=== PATIENT | female | born 1950 | race Caucasian/White ===

== ENCOUNTER → 2019-10-28 13:48 | Outpatient (BNVA) | payer MEDICARE, SELFPAY | PROVIDERS: Family Provider Family Medicine; PCP Family Medicine; Visit Provider Anesthesiology | DX: M54.16 Radiculopathy, lumbar region (principal); M47.816 Spondylosis without myelopathy or radiculopathy, lumbar region; M50.30 Other cervical disc degeneration, unspecified cervical region; G25.81 Restless legs syndrome; Z79.891 Long term (current) use of opiate analgesic | CPT/HCPCS: 99214 ==

== ENCOUNTER 2019-11-26 14:03 | Outpatient (CLI) | payer MEDICARE, SELFPAY ==
--- NOTE | 2019-11-26 14:00 | XR_ITS ---
WS: [id number] XR KUB [id number] REASON FOR EXAM: Renal Calculi FINDINGS: Marked fecal stasis is seen in the abdomen. This obliterates the renal shadows since stones are not definitely seen. No definite stones in the ureters. The urinary bladder was essentially normal. There is degenerate changes on the left side L5-S1 articular facets. XR/XR KUB [id number] IMPRESSION: Marked fecal stasis no definite stones are identified.
== END 2019-11-26 14:04 | disposition home or self-care (01) ==
PROVIDERS: Family Provider Family Medicine; PCP Family Medicine; Visit Provider Urology
DX: N20.0 Calculus of kidney (principal)
CPT/HCPCS: 74018; 81001

== ENCOUNTER → 2019-12-18 13:54 | Outpatient (BNVA) | payer MEDICARE, MEDICAID, SELFPAY | PROVIDERS: Family Provider Family Medicine; PCP Family Medicine; Visit Provider Anesthesiology | DX: M47.816 Spondylosis without myelopathy or radiculopathy, lumbar region (principal); M54.16 Radiculopathy, lumbar region; M25.561 Pain in right knee; M25.562 Pain in left knee; M17.12 Unilateral primary osteoarthritis, left knee; M50.30 Other cervical disc degeneration, unspecified cervical region; Z79.891 Long term (current) use of opiate analgesic | CPT/HCPCS: 99214 ==

== ENCOUNTER 2020-01-12 21:20 | Inpatient (IN) | payer MEDICARE, SELFPAY ==
[2020-01-12 21:21] VITALS: BP 224/96; PULSE 108; RESP 26; TEMP 36.8; O2SAT 91; BMI 39.8
--- NOTE | 2020-01-12 21:28 | W.ED.SOB ---
HPI - SOB/Dyspnea General: Chief Complaint: Shortness of Breath/Dyspnea Stated Complaint: DIFF BREATHING Time Seen by Provider: 01/12/20 21:25 History of Present Illness: HPI Narrative: Eunice is a nice 69-year-old female who comes in complaining of increased shortness of breath. She denies any chest pain. She denies any fever. She has an occasional dry cough. Her greatest complaint is that of orthopnea and dyspnea on exertion. She states that she cannot do anything without having increased shortness of breath. She is increased swelling of her legs. She otherwise denies any abdominal pain, back pain, fever or other complaints. Patient states that she has COPD but she is unaware of being told that she has congestive heart failure or any heart problems. Associated symptoms: Reports orthopnea; Deny abdominal pain, chest congestion, chest pain, diaphoresis, dizziness, extremity pain, fever(s), hemoptysis, nausea, palpitations, polydipsia, syncope or vomiting Review of Systems General: Reports: other (negative unless marked) Const: Denies: fever, chills, body aches, fatigue, malaise or diaphoresis Eyes: Denies: change in vision or blurry vision ENMT: Denies: throat pain, painful swallowing, hoarseness, ear pain, ear discharge, Change in hearing or nasal discharge Card: Reports: swelling of feet/ankles, shortness of breath on exertion and shortness of breath when lying down; Denies: chest pain, palpitations, irregular heart rhythm, syncope or pre-syncope Resp: Reports: shortness of breath and non-productive cough; Denies: productive cough, wheezing, coughing up blood or chest congestion GI: Denies: abdominal pain, nausea, vomiting, vomiting blood, coffee grounds in vomit, diarrhea, constipation, cramping, blood in stool or black tarry stool : Denies: flank pain, painful urination, urinary frequency, urinary urgency, decreased urine ouput, urinary incontinence or blood in urine Musc: Denies: neck pain, back pain, extremity pain, extremity swelling, joint pain, joint swelling, joint warmth or joint stiffness Skin/Breast: Denies: rash, skin tenderness or yellow skin Neuro: Denies: headache, numbness in extremities, weakness in extremities, changes in sensation, lack of coordination, difficulty walking, dizziness, vertigo or confusion Endo: Denies: excessive thirst, tired all the time, cold intolerance, excessive sweating, flushing or hot flashes Octavio/Lymph: Denies: easy bruising, easy bleeding, petechiae or enlarged lymph nodes All/Imm: Denies: hives, throat swelling, tongue swelling, facial swelling or acute wheezing PFSH ED PFSH: Medical History (Updated 01/12/20 @ 22:45 by Marlena Nieves) Cervical spine pain Congestive heart failure Coronary artery disease DDD (degenerative disc disease), cervical DJD (degenerative joint disease), lumbar Encounter for long-term use of opiate analgesic Facet syndrome, lumbar History of kidney stones History of urinary retention Lumbar radiculitis Primary osteoarthritis of left knee Restless leg Surgical History H/O lithotripsy S/P carpal tunnel release BILATERAL S/P cervical spinal fusion 04/26/2017-2000 S/P knee replacement RIGHT S/P PTCA (percutaneous transluminal coronary angioplasty) S/P tonsillectomy Family History Son Diabetes Other Osteoporosis Social History Smoking and tobacco status: never smoked Alcohol intake: never Marital status: Current occupational status: retired History of recent travel: No Physical Exam Const: COMMON NORMALS: no apparent distress, oriented x3, no limitations, healthy appearing and well nourished EXAM LIMITATIONS: no altered mental status GENERAL APPEARANCE: cooperative, well kempt and well developed ORIENTATION/CONSCIOUSNESS: Yes awake HENMT: COMMON NORMALS: normocephalic, head/scalp atraumatic, hearing grossly normal bilaterally, external ears normal, EAC's normal, external nose normal and moist oral mucous membranes HEAD & SCALP: normal to inspection, normocephalic and atraumatic FACE & SINUS: normal facial exam and face symmetric NOSE: external nose normal and nares normal EXTERNAL EAR: Yes external ears normal EXTERNAL AUDITORY CANAL: EAC's normal MOUTH: oral and palatal mucosa normal and tongue normal Eye: COMMON NORMALS: PERRL, EOMs intact bilaterally, conjunctivae normal and no scleral icterus GENERAL EYE: normal appearance of both eyes and normal light reflex CONJUNCTIVA: Yes conjunctivae normal SCLERA: sclerae normal CORNEA: Yes corneas normal PUPIL: Yes PERRL DIRECT OPHTHALMOSCOPY: Yes normal light reflex Neck/C-Spine: COMMON NORMALS: full ROM, no lymphadenopathy, supple, no meningeal signs and no JVD GENERAL: Yes normal visual inspection and Yes trachea midline CERVICAL SPINE: Yes cervical ROM normal Chest: COMMONS NORMALS: inspection of chest normal and palpation of chest normal Resp: COMMON NORMALS: normal respiratory effort, no retractions and no use of accessory muscles EFFORT & INSPECTION: Yes able to speak in complete sentences AUSCULTATION: rales and wheezes Cardio: COMMON NORMALS: no JVD, regular rate, regular rhythm, S1 normal heart sound, S2 normal heart sound, no gallops, no clicks, no murmurs and no rub JUGULAR VENOUS DISTENTION: no JVD RATE: regular rate RHYTHM: regular rhythm HEART SOUNDS: S1 normal and S2 normal GI: COMMON NORMALS: soft to palpation, non-tender, no hepatosplenomegaly and no masses INSPECTION: Yes normal to inspection PALPATION: Yes soft and Yes no hepatosplenomegaly : COMMON NORMALS: Yes no CVA tenderness BLADDER/KIDNEY EXAM: Yes no CVA tenderness Back/Pelvis: COMMON NORMALS: no CVA tenderness, thoracic and lumbar spine normal to inspection, no thoracic nor lumbar tenderness and thoraco-lumbar ROM normal Extremity: COMMON NORMALS: normal to inspection, full ROM, normal capillary refill, no joint enlargement, no clubbing, cyanosis or edema and no calf tenderness Neuro: COMMON NORMALS: oriented x3, CN's II-XII intact bilaterally, moves all extremities, no focal motor deficits and no sensory deficits noted MENINGEAL SIGNS: Yes no meningeal signs Psych: COMMON NORMALS: mental status grossly normal, thought process normal, cooperative, affect normal, speech normal and activity/motor behavior normal APPEARANCE: Yes well kempt SPEECH: Yes normal speech THOUGHT PROCESS: normal thought process Skin: COMMON NORMALS: no rashes or lesions noted, skin turgor normal, no jaundice, no petechiae and no mottling GENERAL SKIN EXAM: no rashes or lesions noted and turgor normal Course Vital Signs: Vital signs: Vital Signs Temperature 98.3 F 01/12/20 21:21 Pulse Rate 93 01/12/20 22:32 Respiratory Rate 20 H 01/12/20 22:32 Blood Pressure 165/110 01/12/20 22:26 Pulse Oximetry 93 01/12/20 22:32 MDM - SOB/Dyspnea MDM Narrative: Medical decision making narrative: Arrival -patient presents with shortness of breath but has a history of COPD. Her history of increasing leg edema, orthopnea and dyspnea on exertion sound somewhat like heart failure as well. Differential is considerable including acute coronary syndrome, acute CHF, COPD exacerbation, bronchitis, pneumonia among many others. Patient is not unstable at this time so we will proceed with work-up for dyspnea primarily. Admit -Case reviewed with Dr. Matute. He will admit for congestive heart failure exacerbation. Patient is currently stable, no chest pain normal EKG normal troponin. Lab Data: Labs: Lab Results 01/12/20 01/12/20 01/12/20 Range/Units 21:50 21:55 21:55 WBC 8.8 (4.0-10.0) 10^3/ uL RBC 4.39 (4.1-5.3) 10^6/u L Hgb 12.6 (11.5-15.3) g/dL Hct 39.4 (37.0-47.0) % MCV 89.7 (81-99) fL MCH 28.7 (28.0-34.0) pg MCHC 32.0 (30.0-36.0) g/dL RDW 13.9 (12.1-15.1) % Plt Count 230 (130-400) 10^3/c mm MPV 9.4 (7.4-10.4) fL Neut % (Auto) 80.6 % Lymph % (Auto) 11.7 % [place] % (Auto) 5.2 % Eos % (Auto) 1.5 % Baso % (Auto) 0.3 % Neut # (Auto) 7.1 (1.8-7.7) 10^3/u L Lymph # (Auto) 1.0 (0.8-4.8) 10^3/u L [place] # (Auto) 0.5 (0.2-0.9) 10^3/u L Eos # (Auto) 0.1 (0.0-0.8) 10^3/u L Baso # (Auto) 0.0 (0.0-0.1) 10^3/u L Nucleated RBC % (a uto) 0 % Nucleated RBCs # 0.0 /100WBC Sodium 138 (136-145) mmol/L Potassium 4.3 (3.5-5.1) mmol/L Chloride 101 (98-107) mmol/L Carbon Dioxide 27 (22-29) mmol/L Anion Gap 14.3 (5-19) BUN 15 (8-23) mg/dL Creatinine 0.6 (0.5-0.9) mg/dL Glucose 162 H (65-115) mg/dL Calculated Osmolal ity 286 (285-295) mOsm/k g Calcium 9.6 (8.5-10.5) mg/dL Magnesium 1.7 (1.7-2.3) mg/dL Total Bilirubin 0.7 (0.15-1.2) mg/dL AST 25 (0-32) U/L ALT 26 (0-33) U/L Alkaline Phosphata se 135 H (35-105) IU/L Troponin T Baselin e (0-10) ng/mL NT-Pro-B Natriuret Pep 535 H (0-125) pg/mL Total Protein 7.2 (6.6-8.7) g/dL Albumin 4.0 (3.5-5.2) g/dL Globulin 3.2 (1.3-4.6) g/dL Influenza Type A A g Negative (Negative) Influenza Type B A g Negative (Negative) 01/12/20 Range/Units 21:55 WBC (4.0-10.0) 10^3/ uL RBC (4.1-5.3) 10^6/u L Hgb (11.5-15.3) g/dL Hct (37.0-47.0) % MCV (81-99) fL MCH (28.0-34.0) pg MCHC (30.0-36.0) g/dL RDW (12.1-15.1) % Plt Count (130-400) 10^3/c mm MPV (7.4-10.4) fL Neut % (Auto) % Lymph % (Auto) % [place] % (Auto) % Eos % (Auto) % Baso % (Auto) % Neut # (Auto) (1.8-7.7) 10^3/u L Lymph # (Auto) (0.8-4.8) 10^3/u L [place] # (Auto) (0.2-0.9) 10^3/u L Eos # (Auto) (0.0-0.8) 10^3/u L Baso # (Auto) (0.0-0.1) 10^3/u L Nucleated RBC % (a uto) % Nucleated RBCs # /100WBC Sodium (136-145) mmol/L Potassium (3.5-5.1) mmol/L Chloride (98-107) mmol/L Carbon Dioxide (22-29) mmol/L Anion Gap (5-19) BUN (8-23) mg/dL Creatinine (0.5-0.9) mg/dL Glucose (65-115) mg/dL Calculated Osmolal ity (285-295) mOsm/k g Calcium (8.5-10.5) mg/dL Magnesium (1.7-2.3) mg/dL Total Bilirubin (0.15-1.2) mg/dL AST (0-32) U/L ALT (0-33) U/L Alkaline Phosphata se (35-105) IU/L Troponin T Baselin e 8 (0-10) ng/mL NT-Pro-B Natriuret Pep (0-125) pg/mL Total Protein (6.6-8.7) g/dL Albumin (3.5-5.2) g/dL Globulin (1.3-4.6) g/dL Influenza Type A A g (Negative) Influenza Type B A g (Negative) Imaging Data^: CXR: My impression: Cardiomegaly with bilateral pleural effusions and pulmonary vascular congestion. EKG Data^: EKG 1: Attestation: I personally reviewed and interpreted this EKG as follows: EKG Interpretation Date: 01/12/20 EKG interpretation time: 21:46 Interpretation: Normal sinus rhythm at 95 beats a minute, no acute ST-T wave changes, normal intervals, no blocks. Discharge Plan Discharge Patient Disposition: Admitted As Inpatient Clinical Impression: Acute exacerbation of congestive heart failure Condition: Stable Prescriptions: No Action levothyroxine 125 mcg capsule 125 mcg PO QDAY RF: 0 atenolol 50 mg tablet 50 mg PO QDAY RF: 0 glipizide 5 mg tablet 2.5 mg PO QDAY RF: 0 B Complex Plus Vitamin C 19-15-69-5-300 mg capsule 1 cap PO QDAY RF: 0 ropinirole 0.5 mg tablet 0.5 mg PO QDAY RF: 0 metformin 850 mg tablet 850 mg PO BID RF: 0 valsartan 80 mg tablet 80 mg PO QDAY RF: 0 isosorbide mononitrate 30 mg tablet extended release 24 hr 30 mg PO QAM RF: 0 atorvastatin 10 mg tablet 10 mg PO QDAY RF: 0 amlodipine 5 mg tablet 5 mg PO QDAY RF: 0 Zyrtec 10 mg capsule PO DAILY RF: 0 Lactobacillus acidophilus [Acidophilus] Capsule 10 mg PO QDAY RF: 0 duloxetine [Cymbalta] 60 mg capsule,delayed release(DR/EC) 60 mg PO QDAY RF: 0 aspirin [Adult Aspirin Regimen] 81 mg tablet,delayed release (DR/EC) 81 mg PO QDAY RF: 0 lutein-zeaxanthin [Ocuvite Blue Light] 25-5 mg capsule PO DAILY RF: 0 coenzyme [id number] 100-100 mg-unit capsule PO DAILY RF: 0 albuterol sulfate [ProAir HFA] 90 mcg/actuation HFA aerosol inhaler 1 inh INHALATION DAILY PRNRF: 0 gabapentin 600 mg tablet 600 mg PO TID 30 Days Qty: 90 RF: 1 oxycodone 15 mg tablet 15 mg PO QID PRN (Reason: pain) 30 Days Qty: 120 RF: 0 oxycodone 15 mg tablet 15 mg PO QID PRN (Reason: pain) 30 Days Qty: 120 RF: 0 methocarbamol 500 mg tablet 500 mg PO TID 30 Days Qty: 90 RF: 1 nortriptyline 50 mg capsule 100 mg PO QDAY 30 Days Qty: 60 RF: 1 Referrals: Serjio Matute MD [Primary Care Provider] - Coding Level of Care Code ED Corporate Communications Specialist for Chg Fwd Exam Comprehensive
--- NOTE | 2020-01-12 21:29 | XR_ITS ---
WS: [id number] CHEST XRAY TECHNIQUE: Portable chest. CLINICAL INFORMATION: cough COMPARISON: March 27, 2019 FINDINGS: Heart: Cardiomegaly. Lungs: Small bilateral pleural effusions with bibasilar atelectasis. Shallow inspiration. Bones: Postoperative changes lower cervical spine. Chronic left lateral rib fractures. XR/XR chest 1V portable [id number] IMPRESSION: Cardiomegaly with small bilateral pleural effusions and bibasilar atelectasis. Recommend correlation for CHF versus pneumonia.
--- NOTE | 2020-01-12 21:29 | ECG_ITS ---
Measurements Intervals [place] Rate: 95 P: 48 AK: 153 QRS: -2 QRSD: 94 T: 42 QT: 357 QTc: 449 SINUS RHYTHM Compared to ECG 10/29/2018 10:54:04 Intraventricular conduction delay no longer present Electronically Signed On 01-13-2020 7:48:50 CDT by Kaushik Beach M.D. [id number]
[2020-01-12] MEDS: nitroglycerin 1 gm/inch oint Pkt 1 INCH TOPICAL (21:43)
[2020-01-12 22:01] LABS: Basophils % 0.3 %; Eosinophils # 0.1 10^3/uL (0.0-0.8); Eosinophils % 1.5 %; Hematocrit 39.4 % (37.0-47.0); Hemoglobin 12.6 g/dL (11.5-15.3); Lymphocytes % 11.7 %; Mean Corpuscular Hemoglobin 28.7 pg (28.0-34.0); Mean Corpuscular Volume 89.7 fL (81-99); Mean Platelet Volume 9.4 fL (7.4-10.4); Monocytes # 0.5 10^3/uL (0.2-0.9); Monocytes % 5.2 %; Neutrophils # 7.1 10^3/uL (1.8-7.7); Neutrophils % 80.6 %; Nucleated Red Blood Cells % 0 %; Platelet Count 230 10^3/cmm (130-400); Red Blood Count 4.39 10^6/uL (4.1-5.3); Red Cell Distribution Width 13.9 % (12.1-15.1); White Blood Count 8.8 10^3/uL (4.0-10.0)
[2020-01-12] MEDS: ipratropium-albuterol 3 mL Neb 9 ML INHALATION (22:15)
[2020-01-12 22:16] VITALS: PULSE 94; RESP 18; O2SAT 93
[2020-01-12] MEDS: FUROsemide 10 mg/mL SDV 4mL 40 MG IVP (22:21)
[2020-01-12 22:22] LABS: Troponin(5th) Baseline 8 ng/mL (0-10)
[2020-01-12] MEDS: nitroglycerin drip 50 MG/250 ML PREMIX IV (22:23)
[2020-01-12 22:26] VITALS: BP 165/110; PULSE 98; RESP 24; O2SAT 89
[2020-01-12 22:30] LABS: Influenza A by IFA Negative (Negative); Influenza B by IFA Negative (Negative)
[2020-01-12 22:31] LABS: Alanine Aminotransferase 26 U/L (0-33); Alkaline Phosphatase 135 IU/L (35-105); Anion Gap 14.3 (5-19); Aspartate Amino Transferase 25 U/L (0-32); Blood Urea Nitrogen 15 mg/dL (8-23); Calcium 9.6 mg/dL (8.5-10.5); Carbon Dioxide 27 mmol/L (22-29); Chloride 101 mmol/L (98-107); Globulin 3.2 g/dL (1.3-4.6); Glucose 162 mg/dL (65-115); Magnesium 1.7 mg/dL (1.7-2.3); NT Pro B Type Natriuretic Pept 535 pg/mL (0-125); Osmolality Calculated 286 mOsm/kg (285-295); Potassium 4.3 mmol/L (3.5-5.1); Sodium 138 mmol/L (136-145); Total Bilirubin 0.7 mg/dL (0.15-1.2); Total Protein 7.2 g/dL (6.6-8.7)
[2020-01-12 22:32] VITALS: PULSE 91; PULSE 93; RESP 20; RESP 23; O2SAT 92; O2SAT 93
[2020-01-12 23:23] LABS: Bilirubin Urine Neg (NEGATIVE); Blood Urine Neg (Negative); Glucose Urine UA Norm (Normal); Ketones Urine Negative (Negative); Leukocyte Esterase Urine Negative (Negative); Nitrate Urine Negative (Negative); Protein Urine Neg (Negative); Specific Gravity, Urine 1.015 (1.005-1.030); Urine Appearance Clear (CLEAR); Urine Color Yellow (Yellow); Urobilinogen Urine Norm (Negative); pH Urine 5 (5-7)
[2020-01-12 23:24] LABS: Add Urine Culture? No
--- NOTE | 2020-01-12 23:29 | ECG_ITS ---
Measurements Intervals [place] Rate: 95 P: 87 OR: 152 QRS: -13 QRSD: 93 T: 54 QT: 343 QTc: 433 SINUS RHYTHM POSSIBLE ANTERIOR MYOCARDIAL INFARCTION [30 ms Q WAVE IN V3/V4, OR R < 0.2 mV IN V4], PROBABLY OLD Compared to ECG 10/29/2018 10:54:04 Myocardial infarct finding now present Intraventricular conduction delay no longer present Electronically Signed On 01-13-2020 7:49:34 CDT by Kaushik Beach M.D. [id number]
[2020-01-12 23:55] LABS: Troponin 5 2HR 9.74 ng/mL (0-10); Troponin 5 2HR Delta 1.74 ABS# (0-10)
[2020-01-13] VITALS (46 sets, daily range): BP systolic 131–198; BP diastolic 66–142; PULSE 68–108; RESP 15–28; TEMP 36.6–36.8; O2SAT 85–95
[2020-01-13] MEDS: morphine 4 mg/mL SDV 1 mL IVP (01:59)
--- NOTE | 2020-01-13 02:18 | PC.NURSE ---
Medications from home counted with second nurse and placed in Pyxis. Note with meds and counts with prescription bottles.
[2020-01-13] MEDS: oxyCODONE 5 mg IR Tab/Cap 15 MG PO ×4 (02:29→19:50)
[2020-01-13] MEDS: ropinirole 0.25 mg Tablet 0.5 MG PO ×2 (02:30→19:50)
--- NOTE | 2020-01-13 03:00 | PC.NURSE ---
Pt has been very anxious since she arrive on the unit. She continued to become more anxious until I was able to get a telephone verbal order from Dr. Matute to give her requip and oxycodone. She has since calmed down a biot, but still states she is anxious. When I check on her, she is short with me. Her blood pressure is still high - 133/112, and her O2 is 89%. She is currently refusing bipap still.
--- NOTE | 2020-01-13 03:29 | ECG_ITS ---
Measurements Intervals [place] Rate: 82 P: 63 SD: 166 QRS: 7 QRSD: 97 T: 41 QT: 381 QTc: 448 SINUS RHYTHM Compared to ECG 10/29/2018 10:54:04 Intraventricular conduction delay no longer present Electronically Signed On 01-13-2020 7:50:03 CDT by Kaushik Beach M.D. [id number]
[2020-01-13 03:52] LABS: Blood Urea Nitrogen 14 mg/dL (8-23); Calcium 9.6 mg/dL (8.5-10.5); Carbon Dioxide 30 mmol/L (22-29); Chloride 97 mmol/L (98-107); Glucose 207 mg/dL (65-115); Osmolality Calculated 290 mOsm/kg (285-295); Sodium 139 mmol/L (136-145)
[2020-01-13 03:54] LABS: Troponin 5 6HR 11.25 ng/mL (0-10); Troponin 5 6HR Delta 3.25 ng/L (0-12)
[2020-01-13 04:03] LABS: Basophils % 0.4 %; Eosinophils % 0.2 %; Hematocrit 40.2 % (37.0-47.0); Hemoglobin 12.8 g/dL (11.5-15.3); Lymphocytes # 1.1 10^3/uL (0.8-4.8); Lymphocytes % 13.2 %; Mean Corpuscular HGB Conc 31.8 g/dL (30.0-36.0); Mean Corpuscular Hemoglobin 28.4 pg (28.0-34.0); Mean Corpuscular Volume 89.1 fL (81-99); Mean Platelet Volume 9.6 fL (7.4-10.4); Monocytes # 0.4 10^3/uL (0.2-0.9); Monocytes % 5.2 %; Neutrophils # 6.8 10^3/uL (1.8-7.7); Neutrophils % 80.5 %; Nucleated Red Blood Cells % 0 %; Platelet Count 275 10^3/cmm (130-400); Red Blood Count 4.51 10^6/uL (4.1-5.3); Red Cell Distribution Width 13.7 % (12.1-15.1); White Blood Count 8.4 10^3/uL (4.0-10.0)
--- NOTE | 2020-01-13 08:38 | USCV_ITS ---
Eunice Frank Age: 69 Gender: F : 1950 Exam Date: 01/13/2020 10:10 Ordering Phys: Serjio Matute MD Technologist: Maxi Chisholm [place] Location[place] [facility] [place]ication: fluid overload BP: 143 / 81 HR: 85 Rhythm: Sinus Technical Quality: Adequate MEASUREMENTS (Male / Female) Normal Values 2D ECHO LV Diastolic Diameter PLAX 4.1 cm 4.2 - 5.9 / 3.9 - 5.3 cm LV Systolic Diameter PLAX 2.0 cm IVS Diastolic Thickness 1.0 cm 0.6 - 1.0 / 0.6 - 0.9 cm IVS Systolic Thickness 1.4 cm LVPW Diastolic Thickness 0.8 cm 0.6 - 1.0 / 0.6 - 0.9 cm LVPW Systolic Thickness 1.1 cm LVOT Diameter 2.1 cm LV Ejection Fraction 2D Teich 82.7 % LV Ejection Fraction MOD 2C 62.1 % LV Ejection Fraction 2C AL 60.9 % LA Diameter 4.7 cm LA Width 4.0 cm LA Height 5.1 cm RA Width 3.5 cm RA Height 4.6 cm M-MODE Aortic Annulus Diameter 3.6 cm LA Ao Ratio MM 1.3 MV E Point Septal Separation 1.0 cm DOPPLER AV Peak Velocity 147.0 cm/s LVOT Peak Velocity 118.0 cm/s AV Area Cont Eq vti 2.6 cm squared AV Area Cont Eq pk 2.7 cm squared MV Area PHT 2.5 cm squared Mitral E to A Ratio 0.8 MV E' Velocity 8.0 cm/s Mitral E to MV E' Ratio 12.0 Mitral E to LV E' Lateral Ratio 10.6 Mitral E to LV E' Septal Ratio 14.2 TR Peak Velocity 186.0 cm/s TR Peak Gradient 13.8 mmHg TV Peak E Velocity 82.0 cm/s Right Atrial Pressure 3.0 mmHg Pulmonary Artery Systolic Pressu 16.8 mmHg PV Peak Velocity 111.0 cm/s FINDINGS Left Ventricle Normal left ventricular size and systolic function, EF 67 %. Grade I/IV diastolic dysfunction (abnormal relaxation filling pattern), normal to mildly elevated filling pressures. Right Ventricle Normal right ventricular size and systolic function. Right Atrium Normal right atrial size. Left Atrium Mildly increased left atrial size. Mitral Valve Trace to mild mitral valve regurgitation. Aortic Valve Thickened aortic valve. Tricuspid Valve Structurally normal tricuspid valve. Pulmonic Valve Structurally normal pulmonic valve. Pericardium No pericardial effusion. Aorta Normal aortic annulus size. CONCLUSIONS Normal left ventricular size and systolic function, EF 67 %. Grade I/IV diastolic dysfunction (abnormal relaxation filling pattern), normal to mildly elevated filling pressures. Mildly increased left atrial size. Trace to mild mitral valve regurgitation. Thickened aortic valve. There is no pericardial effusion. There are no intracardiac masses. Compared to the study from 10/29/2018, there may not be a significant change Dr Jasmine Arredondo MD FACC (Electronically Signed) Final Date: 13 January 2020 16:54 S
--- NOTE | 2020-01-13 08:43 | P.HP_ITS ---
Providers/Chief Complaint Admitting Physician: Serjio Matute MD Primary Care Provider: Serjio Matute MD Chief Complaint: DIFF BREATHING History of Present Illness Eunice Frank is a 69 year old female with past medical history of diabetes mellitus, diastolic heart failure on oxygen 2.5 L at nighttime, hypertension, dyslipidemia, coronary artery disease, hypothyroidism who had presented to the emergency department secondary to dyspnea. 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 She then progressively became more dyspneic and was having a hard time moving around her house without having to take a rest. For this reason she presented to the emergency department. The patient denies any fevers, productive cough, chest pains, abdominal pain, nausea, vomiting, diarrhea, constipation. Medications/Allergies Home Medications Medication Instructions Recorded Confirmed Last Taken Type levothyroxine 112 mcg PO 0600 01/13/20 01/13/20 01/12/20 06:00 History nortriptyline 50 mg PO QDAY 01/13/20 01/13/20 01/12/20 08:00 History Allergies Allergy/AdvReac Type Severity Reaction Status Date / Time budesonide [From Symbicort] Allergy ALGY-Rash Verified 01/12/20 21:27 codeine Allergy ADR-Itching Verified 01/12/20 21:27 formoterol [From Symbicort] Allergy ALGY-Rash Verified 01/12/20 21:27 meloxicam [From Mobic] Allergy ADR-Nausea Verified 01/12/20 21:27 Penicillins Allergy ALGY-Hives Verified 01/12/20 21:27 tetracycline Allergy ADR-Cramping Verified 01/12/20 21:27 of the Muscles PFSH Acute PFSH: Medical History Cervical spine pain Congestive heart failure Coronary artery disease DDD (degenerative disc disease), cervical DJD (degenerative joint disease), lumbar Encounter for long-term use of opiate analgesic Facet syndrome, lumbar History of kidney stones History of urinary retention Lumbar radiculitis Primary osteoarthritis of left knee Restless leg Surgical History H/O lithotripsy S/P carpal tunnel release BILATERAL S/P cervical spinal fusion 04/26/2017-2000 S/P knee replacement RIGHT S/P PTCA (percutaneous transluminal coronary angioplasty) S/P tonsillectomy Family History Son Diabetes Other Osteoporosis Social History Smoking and tobacco status: never smoked Alcohol intake: never Marital status: Current occupational status: retired History of recent travel: No Vitals/I&O/Wt Last Vital Signs Temp 98.3 F 01/12/20 21:21 Pulse 80 01/13/20 07:23 Resp 20 H 01/13/20 07:16 BP 184/87 01/13/20 06:00 Pulse Ox 94 01/13/20 07:23 01/12/20 01/13/20 01/13/20 22:59 06:59 14:59 Intake Total 234.55 / 234.55 63.35 / 63.35 Output Total 1600 / 1600 300 / 300 Balance -1365.45 / -1365.45 -236.65 / -236.65 Weight last 48 hrs Weight 225 lb Physical Exam Narrative: EXAM NARRATIVE: General: Alert and oriented x3 Eyes: Pupils equal round and reactive to light and accommodation Mouth: Mucous membranes moist, pharynx non-erythematous Cardiac: Regular rate and rhythm without murmurs Lungs: Decreased air entry in the bilateral lung bases with mild crackles in the mid-lungs and clear breath sounds in the upper lungs bilaterally. Abdomen: Soft, nontender, no hepatosplenomegaly appreciated. Extremities: +1 pitting edema in the bilateral lower extremities Data : 01/13/20 03:30 01/13/20 03:30 A&P Additional A&P Information 1. Fluid overload -this is likely secondary to diastolic CHF, however we will get a repeat echocardiogram to further evaluate. The patient got 40 mg of Lasix IV in the ER and her breathing is improved. She is currently on 4 L of oxygen via nasal cannula and her oxygen saturation is at 92%. She typically only wears oxygen at night, however she was recommended to wear it during the day. Baseline oxygen use should be around 2 L. We will continue to work to get the fluid off. Currently she does not show signs of COVID-19. Certainly if she were to become febrile or her overall status were to decline, this would need to be tested. 2. Hypertensive urgency -the patient's blood pressures were in the 200s systolic upon entry to the ER. They tried to bring these down with medications, however were not working with short-term meds, so the patient was placed on a nitro drip. We will restart her home medications and adjust upwards as needed. We will work to wean off the nitro drip as possible. 3. Diabetes mellitus -insulin sliding scale and glipizide for now. 4. Hypothyroidism -check thyroid levels tomorrow. 5. Coronary artery disease -patient does not show signs of an NSTEMI at this time. We will continue to watch for any signs of chest pains worsening. 6. Prophylaxis -the patient will be on Lovenox for DVT prophylaxis. Attestations Medical Necessity Statement*: The patient is currently in the ICU for care of her fluid overload and hypertensive urgency. She is currently on a nitro drip. I expect her care to surpass 2 midnights. Time Spent in Patient Care: Greater than 35 minutes ICU time was 40 minutes. Coding Level of Care Code Acute Tax Economist for Fortino Vega
[2020-01-13] MEDS: FUROsemide 10 mg/mL SDV 4mL 40 MG IVP ×2 (09:05→19:51)
[2020-01-13] MEDS: nortriptyline 25 mg Capsule 50 MG PO (09:06)
[2020-01-13] MEDS: duloxetine 60 mg Capsule PO (09:06)
[2020-01-13] MEDS: atenolol 50 mg Tablet PO ×2 (09:06→18:10)
[2020-01-13] MEDS: enoxaparin 40 mg/0.4 mL Syringe SUBCUT (09:06)
[2020-01-13] MEDS: losartan 50 mg Tablet 25 MG PO ×2 (09:06→18:10)
[2020-01-13] MEDS: gabapentin 300 mg Capsule 600 MG PO ×3 (09:06→19:51)
[2020-01-13] MEDS: amlodipine 5 mg Tablet PO (09:07)
[2020-01-13] MEDS: aspirin 81 mg EC Tablet PO (09:07)
[2020-01-13 14:26] LABS: Glucose Point of Care 158 mg/dL (70-110)
[2020-01-13 17:29] LABS: Glucose Point of Care 152 mg/dL (70-110)
[2020-01-14] VITALS (14 sets, daily range): BP systolic 101–178; BP diastolic 60–87; PULSE 57–74; RESP 12–23; TEMP 36.5–37.1; O2SAT 90–96
[2020-01-14] MEDS: oxyCODONE 5 mg IR Tab/Cap 15 MG PO ×4 (02:11→20:40)
[2020-01-14 04:30] LABS: Basophils % 0.4 %; Eosinophils # 0.3 10^3/uL (0.0-0.8); Eosinophils % 3.7 %; Hematocrit 38.2 % (37.0-47.0); Hemoglobin 12.3 g/dL (11.5-15.3); Lymphocytes # 1.5 10^3/uL (0.8-4.8); Lymphocytes % 19.9 %; Mean Corpuscular HGB Conc 32.2 g/dL (30.0-36.0); Mean Corpuscular Hemoglobin 29.2 pg (28.0-34.0); Mean Corpuscular Volume 90.7 fL (81-99); Mean Platelet Volume 9.5 fL (7.4-10.4); Monocytes # 0.7 10^3/uL (0.2-0.9); Monocytes % 8.6 %; Neutrophils % 67.1 %; Nucleated Red Blood Cells % 0 %; Platelet Count 254 10^3/cmm (130-400); Red Blood Count 4.21 10^6/uL (4.1-5.3); Red Cell Distribution Width 13.8 % (12.1-15.1); White Blood Count 7.5 10^3/uL (4.0-10.0)
[2020-01-14 04:56] LABS: Alanine Aminotransferase 18 U/L (0-33); Albumin Level 3.6 g/dL (3.5-5.2); Alkaline Phosphatase 108 IU/L (35-105); Anion Gap 14.8 (5-19); Aspartate Amino Transferase 20 U/L (0-32); Blood Urea Nitrogen 14 mg/dL (8-23); Calcium 9.1 mg/dL (8.5-10.5); Carbon Dioxide 32 mmol/L (22-29); Chloride 98 mmol/L (98-107); Glucose 136 mg/dL (65-115); Magnesium 1.7 mg/dL (1.7-2.3); NT Pro B Type Natriuretic Pept 369 pg/mL (0-125); Osmolality Calculated 290 mOsm/kg (285-295); Phosphorus 4.1 mg/dL (2.5-4.5); Potassium 3.8 mmol/L (3.5-5.1); Sodium 141 mmol/L (136-145); Thyroid Stimulating Hormone 2.54 uIU/mL (0.27-4.20); Total Bilirubin 0.6 mg/dL (0.15-1.2); Total Protein 6.6 g/dL (6.6-8.7)
[2020-01-14] MEDS: isosorbide mononitrate ER 30 mg Tablet PO (05:13)
[2020-01-14] MEDS: levothyroxine 112 mcg Tablet PO (05:13)
[2020-01-14 05:17] LABS: Estmated Average Glucose 126
--- NOTE | 2020-01-14 05:25 | CTR_ITS ---
PROCEDURE INFORMATION: Exam: CT Head Without Contrast Exam date and time: 01/14/2020 5:25 AM Age: 69 years old Clinical indication: Altered mental status/memory loss and speech disturbance; Confusion or disorientation; Slurred speech TECHNIQUE: Imaging protocol: Computed tomography of the head without contrast. Total DLP: 916.1 mGy-cm Radiation optimization: All CT scans at this facility use at least one of these dose optimization techniques: automated exposure control; mA and/or kV adjustment per patient size (includes targeted exams where dose is matched to clinical indication); or iterative reconstruction. COMPARISON: CT head wo con* [id number] 05/10/2018 8:11 AM FINDINGS: Brain: Stable 5 mm calcified left frontal extra-axial meningioma. [place]-white matter differentiation is preserved. No edema, mass effect or midline shift.Periventricular and deep white matter hypodensities compatible with chronic microvascular ischemic changes. No acute intracranial hemorrhage. Ventricles: No ventriculomegaly. Bones/joints: No acute fracture. Sinuses: No acute sinusitis. Mastoid air cells: No mastoid effusion. Soft tissues: Unremarkable. CT/CT head wo con* [id number] IMPRESSION: No acute intracranial abnormality. Radiation Dose CTDIVOL = (mGy): DLP = 916.1 (mGy-cm)
[2020-01-14 05:31] LABS: Free T4 Free Thyroxine 1.33 ng/dL (0.82-1.77)
--- NOTE | 2020-01-14 05:53 | PC.NURSE ---
DR NOTIFICATION DR TOUSSAINT CALLED. PT WOKE UP AND COULD NOT TALK APPROPIATELY AND SPEECH WAS SLURRED. NEURO CHECK WAS DONE, EVERYTHING WAS WNL, EXCEPT SPEECH. DR TOUSSAINT GAVE ORDER FOR CT SCAN.
--- NOTE | 2020-01-14 07:00 | XR_ITS ---
WS: [id number] CHEST XRAY TECHNIQUE: Portable chest. CLINICAL INFORMATION: Dyspnea COMPARISON: January 12, 2020 FINDINGS: Shallow inspiration. Heart: Cardiomegaly. Lungs: Small left pleural effusion is unchanged. Left basilar atelectasis. Trace right pleural fluid is improved. No focal pneumonia. Bones: Normal visualized bony structures. XR/XR chest 1V portable [id number] IMPRESSION: 1. Shallow inspiration with stable small pleural effusion left basilar atelect asis. 2. Trace right pleural fluid is improved. 3. Shallow inspiration with cardiomegaly.
[2020-01-14 07:46] LABS: Glucose Point of Care 113 mg/dL (70-110)
[2020-01-14] MEDS: losartan 50 mg Tablet 25 MG PO ×2 (08:04→17:35)
[2020-01-14] MEDS: nortriptyline 25 mg Capsule 50 MG PO (08:04)
[2020-01-14] MEDS: aspirin 81 mg EC Tablet PO (08:06)
[2020-01-14] MEDS: enoxaparin 40 mg/0.4 mL Syringe SUBCUT (08:07)
[2020-01-14] MEDS: duloxetine 60 mg Capsule PO (08:07)
[2020-01-14] MEDS: atenolol 50 mg Tablet PO (08:07)
[2020-01-14] MEDS: amlodipine 5 mg Tablet PO (08:07)
[2020-01-14] MEDS: gabapentin 300 mg Capsule 600 MG PO ×3 (08:07→20:51)
[2020-01-14] MEDS: FUROsemide 10 mg/mL SDV 4mL 40 MG IVP ×2 (08:08→20:51)
--- NOTE | 2020-01-14 08:45 | USCV_ITS ---
Eunice Frank Age: 69 Gender: F : 1950 Exam Date: 01/14/2020 09:42 Ordering Phys: Serjio Matute MD Technologist: Lina Rice Exam Location[place] [facility] [place] Ind[place]: TIA Risk Factors: Previous Vascular Surgery: Right Brachial BP: / Left Brachial BP: / Right Left Velocity (cm/s) Spectral Plaque Velocity (cm/s) Spectral Plaque Syst/Diast Broadening Syst/Diast Broadening 97.00/ 19.80 Prox CCA 95.00 / 15.00 95.80/ 15.20 Mid CCA 116.10/ 12.10 87.80/ 14.30 Distal CCA 96.50 / 22.60 77.90/ 10.60 Prox ICA 61.80 / 14.30 78.80/ 21.10 Mid ICA 76.20 / 13.60 80.70/ 19.20 Distal ICA 65.10 / 16.70 65.40 ECA 67.10 0.84 ICA/CCA 0.66 Antegrade Vertebral Antegrade 46.90/ 10.40 cm/s 47.50/ 14.20 cm/s Tri Subclavian Tri 109.7 84.20 0 CONCLUSIONS Right ICA stenosis <50%. Mild atheromatous plaque right carotid bulb/ICA. Left ICA stenosis <50%. Mild atheromatous plaque left carotid bulb/ICA. Normal antegrade Doppler flow noted in the right vertebral artery. Normal antegrade Doppler flow noted in the left vertebral artery. Brayan Harris MD (Electronically Signed) Final Date: 15 January 2020 16:10 S
--- NOTE | 2020-01-14 08:50 | P.PN_ITS ---
Subjective Subjective: Interval history: Overnight the patient had an episode of difficulty with finding words and kept repeating [place] [employer] over and over. The patient did not have any other neurological deficits, however out of concern for a possible stroke, a CT scan was done. The patient does not remember the whole episode, and is currently feeling well. She currently has no deficits. The patient says that sometimes in the middle of the night if she has not slept well, she will be confused and when this happens, she frequently repeats the rosary. She feels that this is maybe what was going on. The patient currently has less shortness of breath than when she presented. She denies any active chest pains. Vitals/I&O/Wt Last Vital Signs Temp 97.9 F 01/14/20 02:21 Pulse 59 L 01/14/20 04:08 Resp 22 H 01/14/20 08:05 BP 101/64 01/14/20 08:04 Pulse Ox 95 01/14/20 08:05 01/13/20 01/14/20 01/14/20 22:59 06:59 14:59 Intake Total 480 / 822.125 120 / 942.125 Output Total 1200 / 2000 1500 / 3500 Balance -720 / -1177.875 -1380 / -2557.875 Weight last 48 hrs Weight 225 lb Physical Exam Narrative: EXAM NARRATIVE: General: Alert and oriented x3 Eyes: Pupils equal round and reactive to light and accommodation Mouth: Mucous membranes moist, pharynx non-erythematous Cardiac: Regular rate and rhythm without murmurs Lungs: Decreased air entry in the bilateral lung bases with mild crackles in the mid-lungs and clear breath sounds in the upper lungs bilaterally. Abdomen: Soft, nontender, no hepatosplenomegaly appreciated. Extremities: +1 pitting edema in the bilateral lower extremities. Mildly decreased from yesterday. Neurological: The patient has stable difficulty with finding words in terms of pauses with speaking, however is at her baseline. She has good strength in her upper and lower extremities. Cranial nerves II through XII are intact. Data : 01/14/20 04:15 01/14/20 04:15 A&P Additional A&P Information 1. Fluid overload secondary to diastolic CHF -the patient has been getting Lasix twice a day and is improving. She is currently on 4 L of oxygen via nasal cannula and her oxygen saturation is at 97%. She typically only wears oxygen at night, however she was recommended to wear it during the day. Baseline oxygen use should be around 2 L. We will continue to work to get the fluid off. Currently she does not show signs of COVID-19. Certainly if she were to become febrile or her overall status were to decline, this would need to be tested. 2. Hypertensive urgency -the patient's blood pressures were in the 200s systolic upon entry to the ER. They have been coming down well with Lasix therapy. Her atenolol was increased to 50 mg twice daily, however we will decrease back to daily as her blood pressures are now responding well to the Lasix treatment. Patient is currently off of the nitro drip. 3. Diabetes mellitus -insulin sliding scale and glipizide for now. 4. Hypothyroidism -stable 5. Coronary artery disease -patient does not show signs of an NSTEMI at this time. We will continue to watch for any signs of chest pains worsening. 6. Speech difficulties -the patient had some speech difficulties overnight and a CT head was negative for acute findings of stroke. Patient currently has no symptoms. This was either a TIA versus ICU delirium. We will go ahead and get a ultrasound of her bilateral carotids to make sure that they are not showing signs of blockage. Currently the patient is doing well. Continue with aspirin. 7. Prophylaxis -the patient will be on Lovenox for DVT prophylaxis. Attestations Medical Necessity Statement*: The patient continues to improve, however needs inpatient therapy. We will move her from the ICU today to the medical floor. Her stay will continue to cross 2 midnights. Time Spent in Patient Care: 16 - 35 minutes Coding Level of Care Code Acute Radial Drill Operator for Fortino Vega
[2020-01-14 11:20] LABS: Glucose Point of Care 144 mg/dL (70-110)
--- NOTE | 2020-01-14 12:10 | PC.NURSE ---
Pt transferred to room 251-2 via wc with all personal belongings. Pt settled into room by this nurse with O2 @ 4LNC. Chart given to assistant community manager. Report called to Jocelynn at 1137, pt transferred at 1149. No complaints voiced at time of transfer.
[2020-01-14 17:11] LABS: Glucose Point of Care 106 mg/dL (70-110)
[2020-01-14] MEDS: ropinirole 0.25 mg Tablet 0.5 MG PO (20:51)
[2020-01-14 21:02] LABS: Glucose Point of Care 129 mg/dL (70-110)
[2020-01-15] VITALS (13 sets, daily range): BP systolic 123–175; BP diastolic 66–88; PULSE 56–84; RESP 16–22; TEMP 36.2–36.9; O2SAT 91–96
[2020-01-15 05:02] LABS: Basophils % 0.4 %; Eosinophils # 0.4 10^3/uL (0.0-0.8); Eosinophils % 4.6 %; Hematocrit 39.4 % (37.0-47.0); Hemoglobin 12.8 g/dL (11.5-15.3); Lymphocytes # 1.4 10^3/uL (0.8-4.8); Lymphocytes % 18.1 %; Mean Corpuscular HGB Conc 32.5 g/dL (30.0-36.0); Mean Corpuscular Hemoglobin 29.2 pg (28.0-34.0); Mean Platelet Volume 9.7 fL (7.4-10.4); Monocytes # 0.7 10^3/uL (0.2-0.9); Monocytes % 9.1 %; Neutrophils # 5.3 10^3/uL (1.8-7.7); Neutrophils % 67.5 %; Nucleated Red Blood Cells % 0 %; Platelet Count 270 10^3/cmm (130-400); Red Blood Count 4.38 10^6/uL (4.1-5.3); Red Cell Distribution Width 13.6 % (12.1-15.1); White Blood Count 7.8 10^3/uL (4.0-10.0)
[2020-01-15 05:36] LABS: Alanine Aminotransferase 17 U/L (0-33); Albumin Level 3.7 g/dL (3.5-5.2); Alkaline Phosphatase 106 IU/L (35-105); Anion Gap 14.6 (5-19); Aspartate Amino Transferase 20 U/L (0-32); Blood Urea Nitrogen 18 mg/dL (8-23); Calcium 9.3 mg/dL (8.5-10.5); Carbon Dioxide 33 mmol/L (22-29); Chloride 97 mmol/L (98-107); Glucose 146 mg/dL (65-115); NT Pro B Type Natriuretic Pept 156 pg/mL (0-125); Osmolality Calculated 291 mOsm/kg (285-295); Potassium 3.6 mmol/L (3.5-5.1); Sodium 141 mmol/L (136-145); Total Bilirubin 0.5 mg/dL (0.15-1.2); Total Protein 6.7 g/dL (6.6-8.7)
[2020-01-15] MEDS: levothyroxine 112 mcg Tablet PO (05:47)
[2020-01-15] MEDS: isosorbide mononitrate ER 30 mg Tablet PO (05:47)
[2020-01-15 06:44] LABS: Glucose Point of Care 123 mg/dL (70-110)
--- NOTE | 2020-01-15 07:00 | XR_ITS ---
WS: [id number] CHEST XRAY TECHNIQUE: Portable chest. CLINICAL INFORMATION: Fluid overload COMPARISON: January 14, 2020 FINDINGS: Heart: Cardiomegaly. Lungs: Chronic emphysematous changes. Small bilateral pleural effusions. No focal pneumonia. Bones: Postoperative changes lower cervical spine. XR/XR chest 1V portable [id number] IMPRESSION: 1. Cardiomegaly with small bilateral pleural effusions unchanged. 2. Chronic emphysematous changes. 3. No focal pneumonia.
--- NOTE | 2020-01-15 09:17 | CT_ITS ---
WS: [id number] CT ABDOMEN PELVIS TECHNIQUE: Contrast-enhanced CT of the abdomen and pelvis with coronal and sagittal reformatted image s. CLINICAL INFORMATION: Right lower quadrant abdominal pain COMPARISON: CT April 04, 2017 DLP: 1785.[address] scans at [facility] use at least one of these dose optimization techniques: automat ed exposure control; mA and/or kV adjustment per patient size (includes targeted exams where dose is matched to clinical indication); or iterative reconstruction. FINDINGS: Enlarged right hepatic lobe. Normal portal vein and splenic vein. Fluid distended gallbladder which i s otherwise normal in appearance. Normal spleen. Small esophageal hiatal hernia. Small pericardial ef fusion. Small bilateral pleural effusions with bibasilar atelectasis. Compressive atelectasis in the lung bases with air bronchograms. Recommend correlation for pneumonia. Normal caliber abdominal aorta. Adrenal glands are normal. Normal renal parenchymal enhancement. No h ydronephrosis. Renal cortical atrophy. 1.8 cm left adnexal cyst is unchanged. Diverticulosis. No evid ence of acute diverticulitis. Scattered stool in the colon. No evidence of small or large bowel obstr uction. No periaortic or inguinal lymphadenopathy. Tiny fat-containing umbilical hernia. CT/CT abdomen pelvis w con* [id number] IMPRESSION: 1. Small bilateral pleural effusions with compressive atelectasis in the lung bases with air bronchograms. Recommend correlation for pneumonia. 2. Small pericardial effusion. 3. Small Esophageal hiatal hernia. 4. 1.8 cm left ovarian cyst is unchanged. 5. Diverticulosis. No evidence of acute diverticulitis. 6. Fluid distended gallbladder which is otherwise normal in appearance.
[2020-01-15] MEDS: oxyCODONE 5 mg IR Tab/Cap 15 MG PO ×3 (09:20→20:47)
--- NOTE | 2020-01-15 09:20 | PM.PN ---
Subjective Subjective: Interval history: The patient has been having pain in the right lower quadrant. The pain had been more mild before, however it is increasing gradually. It is radiating into her lower back. The pain is crampy in nature. Overall her breathing is improving and she was able to decrease to 3 and half liters of oxygen via nasal cannula. She denies any chest pains. Vitals/I&O/Wt Last Vital Signs Temp 97.5 F L 01/15/20 07:16 Pulse 72 01/15/20 07:16 Resp 16 01/15/20 07:16 BP 175/77 01/15/20 07:16 Pulse Ox 94 01/15/20 07:16 01/14/20 01/15/20 01/15/20 22:59 06:59 14:59 Intake Total 240 / 480 240 / 240 Output Total 500 / 750 450 / 1200 Balance -260 / -270 -450 / -720 240 / 240 Physical Exam Narrative: EXAM NARRATIVE: General: Alert and oriented x3 Mouth: Mucous membranes moist, pharynx non-erythematous Cardiac: Regular rate and rhythm without murmurs Lungs: Decreased air entry in the bilateral lung bases with mild crackles in the mid-lungs and clear breath sounds in the upper lungs bilaterally. Abdomen: Soft, tenderness present over the right lower quadrant to palpation moving into the right lower back. No hepatosplenomegaly appreciated. Extremities: +1 pitting edema in the bilateral lower extremities. Mildly decreased from yesterday. Neurological: Cranial nerves II through XII are intact. No significant deficits noted. Data : 01/15/20 04:08 01/15/20 04:08 A&P Additional A&P Information 1. Fluid overload secondary to diastolic CHF -the patient has been getting Lasix twice a day and is improving. She is currently on 3.5 L of oxygen via nasal cannula and her oxygen saturation is at 97%. She typically only wears oxygen at night, however she was recommended to wear it during the day. Baseline oxygen use should be around 2 L. We will continue to work to get the fluid off. Currently she does not show signs of COVID-19. Certainly if she were to become febrile or her overall status were to decline, this would need to be tested. The patient continues to improve and we will plan for discharge home tomorrow if she continues to get better. Currently she has a negative fluid balance of over 4.5 L. 2. Hypertensive urgency -the patient's blood pressures are improving and her atenolol has been decreased because her blood pressures were getting too low. Now her blood pressures are in the 170s. We will adjust further and see how she responds to this. 3. Diabetes mellitus -insulin sliding scale and glipizide for now. 4. Hypothyroidism -stable 5. Coronary artery disease -patient does not show signs of an NSTEMI at this time. We will continue to watch for any signs of chest pains worsening. 6. Speech difficulties -the patient no longer has speech difficulties other than her baseline occasional forgetfulness of words. 7. Abdominal pain -the patient has right lower quadrant abdominal pain. We will get a CT of her abdomen to rule out underlying pathology. 8. Prophylaxis -the patient will be on Lovenox for DVT prophylaxis. Attestations Medical Necessity Statement*: The patient continues to improve and will likely be able to be discharged home over the next 1 to 2 days depending on her course. Coding Level of Care Code Acute Cnc Service Technician for Fortino Vega
[2020-01-15] MEDS: nortriptyline 25 mg Capsule 50 MG PO (09:21)
[2020-01-15] MEDS: losartan 50 mg Tablet 25 MG PO ×2 (09:22→17:07)
[2020-01-15] MEDS: aspirin 81 mg EC Tablet PO (09:22)
[2020-01-15] MEDS: duloxetine 60 mg Capsule PO (09:22)
[2020-01-15] MEDS: gabapentin 300 mg Capsule 600 MG PO ×3 (09:23→20:48)
[2020-01-15] MEDS: atenolol 50 mg Tablet 75 MG PO (09:23)
[2020-01-15] MEDS: amlodipine 5 mg Tablet PO (09:24)
[2020-01-15] MEDS: enoxaparin 40 mg/0.4 mL Syringe SUBCUT (09:25)
[2020-01-15] MEDS: FUROsemide 10 mg/mL SDV 4mL 40 MG IVP ×2 (09:26→20:45)
--- NOTE | 2020-01-15 10:11 | PC.SOCIAL ---
Pg 2 IMM Explained to pt Pg 2 IMM via phone. Pt verbally understands, no questions voiced. Signed, dated, & timed then placed a copy in chart.
[2020-01-15 11:12] LABS: Glucose Point of Care 345 mg/dL (70-110)
[2020-01-15] MEDS: iohexol 300 mg/mL 100 mL Btl IV (11:20)
[2020-01-15 16:54] LABS: Glucose Point of Care 95 mg/dL (70-110)
[2020-01-15] MEDS: ropinirole 0.25 mg Tablet 0.5 MG PO (20:48)
[2020-01-15 20:53] LABS: Glucose Point of Care 171 mg/dL (70-110)
--- NOTE | 2020-01-15 23:25 | PC.NURSE ---
Ambulated to nurses station and back to room without oxygen. Cup of ice given per her request. Will monitor.
[2020-01-16] VITALS (8 sets, daily range): BP systolic 96–153; BP diastolic 53–76; PULSE 54–73; RESP 16–18; TEMP 36.4–36.6; O2SAT 87–94
[2020-01-16] MEDS: oxyCODONE 5 mg IR Tab/Cap 15 MG PO ×3 (01:58→14:29)
[2020-01-16 05:06] LABS: Basophils # 0.1 10^3/uL (0.0-0.1); Basophils % 0.6 %; Eosinophils # 0.3 10^3/uL (0.0-0.8); Eosinophils % 4.1 %; Hematocrit 41.6 % (37.0-47.0); Hemoglobin 12.9 g/dL (11.5-15.3); Lymphocytes # 1.8 10^3/uL (0.8-4.8); Lymphocytes % 22.7 %; Mean Corpuscular Volume 90.4 fL (81-99); Monocytes # 0.7 10^3/uL (0.2-0.9); Monocytes % 8.2 %; Neutrophils # 5.1 10^3/uL (1.8-7.7); Neutrophils % 64.2 %; Nucleated Red Blood Cells % 0 %; Platelet Count 327 10^3/cmm (130-400); Red Cell Distribution Width 13.7 % (12.1-15.1)
--- NOTE | 2020-01-16 05:19 | PC.NURSE ---
Dr. Garcia notified of patient's BP of 96/61 and HR of 59. Patient is scheduled to have Imdur 30mg PO at 0600. Order received to hold Imdur this am.
[2020-01-16 05:27] LABS: Alanine Aminotransferase 18 U/L (0-33); Albumin Level 4.1 g/dL (3.5-5.2); Alkaline Phosphatase 110 IU/L (35-105); Anion Gap 14.7 (5-19); Aspartate Amino Transferase 21 U/L (0-32); Blood Urea Nitrogen 27 mg/dL (8-23); Calcium 9.6 mg/dL (8.5-10.5); Carbon Dioxide 33 mmol/L (22-29); Chloride 93 mmol/L (98-107); Globulin 3.2 g/dL (1.3-4.6); Glucose 134 mg/dL (65-115); Magnesium 2.4 mg/dL (1.7-2.3); Osmolality Calculated 283 mOsm/kg (285-295); Phosphorus 5.9 mg/dL (2.5-4.5); Potassium 3.7 mmol/L (3.5-5.1); Sodium 137 mmol/L (136-145); Total Bilirubin 0.6 mg/dL (0.15-1.2); Total Protein 7.3 g/dL (6.6-8.7)
[2020-01-16] MEDS: levothyroxine 112 mcg Tablet PO (05:38)
[2020-01-16 06:04] LABS: Glucose Point of Care 128 mg/dL (70-110)
[2020-01-16] MEDS: losartan 50 mg Tablet 25 MG PO (08:05)
[2020-01-16] MEDS: nortriptyline 25 mg Capsule 50 MG PO (08:06)
[2020-01-16] MEDS: amlodipine 5 mg Tablet PO (08:06)
[2020-01-16] MEDS: gabapentin 300 mg Capsule 600 MG PO ×2 (08:06→14:30)
[2020-01-16] MEDS: aspirin 81 mg EC Tablet PO (08:06)
[2020-01-16] MEDS: duloxetine 60 mg Capsule PO (08:07)
[2020-01-16] MEDS: FUROsemide 10 mg/mL SDV 4mL 40 MG IVP (08:07)
[2020-01-16] MEDS: atenolol 50 mg Tablet 75 MG PO (08:07)
[2020-01-16] MEDS: enoxaparin 40 mg/0.4 mL Syringe SUBCUT (08:10)
--- NOTE | 2020-01-16 09:49 | PC.CHAP ---
Pastoral Care Encounter/Spiritual Assessment Type of Contact [] Declined tight rope walker visit [] Patient/Family/Request visit [] Outpatient visit [] Follow-up visit [] Physician referral [] Code/Alert [x] Routine visit [] Staff referral [] Actively dying [] Patient sleeping [] Family support [] [] Out of room [] Palliative care [] [] Receiving care in room [] Pre-surgical visit [] Trauma [] Long length of stay [] ICU visit [] Other: Relational/Emotional Strength [] Patient feels connected with others/family/visitors/staff [] Distress [] Loneliness/isolation [] Abandonment Spirituality of Patient [] Person of Olivia [] Attends Synagogue of their [place] [] Believes in Prayer [] Reads Bible or Yazidi materials [] There are Spiritual issues to be addressed History Teacher Interventions [x] Prayer [] Active listening [] Non-anxious presence [] Spiritual/emotional support [] Crisis/trauma care [] Spiritual counseling [] Bereavement support [] Provided bereavement packet [] Provided Bible/devotional materials [] Provided toy/stuffed animal, coloring book to patient or family member [] Provided Communion [] Anointing/[place] [] Salvation [x] Completed spiritual assessment [] Other: Impact on Illness or Injury [] Angry [] Fearful [] Anxious [] Often cries [] Exhaustion [] Unable to work [] Unable to attend spiritism [] Unable to walk/stand [] Unable to read [] Unable to drive [] Unable to eat/drink [] Unable to sleep [] Unable to be with family [] Patient intubated [] Other: Summary Patient feeling stronger Time spent with patient 10min
--- NOTE | 2020-01-16 10:43 | PM.DCS ---
Discharge Providers Date of Admission: 01/12/20 22:39 Date of Discharge: January 16, 2020 Attending Provider at Admission: Serjio Matute MD Attending Provider at Discharge: Serjio Matute MD Primary Care Provider: Serjio Matute MD Diagnoses at Discharge Other Information Additional DC diagnoses/information: 1. Fluid overload secondary to diastolic CHF . 2. Hypertensive urgency 3. Diabetes mellitus type 2 4. Hypothyroidism 5. Coronary artery disease 6. Speech difficulties 7. Abdominal pain 8. Gait instability 9. Hypoxia Reason for Visit Reason for Visit: Reason For Visit: DIFF BREATHING Hospital Course Hospital Course: The patient was admitted to the hospital secondary to diastolic CHF with fluid overload along with hypertensive urgency with blood pressures have been decreased from the 200s systolic without a nitro drip. The patient was placed on IV Lasix and her breathing improved gradually. The patient's breathing is currently improving well. Her CT scan did suggest possibility of pneumonia, however she has not had any white blood cell count elevations, fever or phlegm production. In case of underlying pneumonia, she will be given Levofloxacin as an outpatient however I feel that the underlying cause was primarily fluid overload. The patient will be discharged home with furosemide daily for the next week with potassium and will follow-up at that time to see if we need to continue with Lasix therapy on a scheduled basis or move it to as needed. The patient typically wears 2.5 L of oxygen at home at nighttime, however is showing signs that she continues need oxygen throughout the day. We will have respiratory therapy evaluate her and I confirmed that it is medically necessary for her to have oxygen throughout the day as well too. The patient was found to have diastolic heart failure on echocardiogram during this hospitalization. The patient's blood pressure also improved with Lasix therapy. Her dose of atenolol was increased from 50 to 75 mg and her nitro drip was able to be weaned off. Currently her blood pressures range from the 130s to 150s. We will continue to follow this as an outpatient to adjust it further. Patient does have some gait instability and had previously been using a cane, however physical therapy feels that it would be safer for her to use a walker with wheels in a chair in order to decrease risk for fall. I agree that this is medically necessary. The patient was having abdominal pain during her stay and a CT scan was done that did not show any significant underlying findings. She had a mild bump in her creatinine after this was likely secondary to contrast. We will recheck these levels as an outpatient as well to be sure that they are continuing to stabilize. Overall the patient feels well at this time and would like to be discharged home. I am in agreement that she is stable for discharge. We will follow-up with her in 1 week or sooner if needed. Physical Exam Narrative: EXAM NARRATIVE: General: Alert and oriented x3 Cardiac: Regular rate and rhythm without murmurs Lungs: Decreased air entry in the bilateral lung bases with mild crackles in the lung bases and clear breath sounds in the mid and upper lungs bilaterally. Abdomen: Soft, mild tenderness present over the right lower quadrant to palpation moving into the right lower back. No hepatosplenomegaly appreciated. Extremities: +1 pitting edema in the bilateral lower extremities. Neurological: Cranial nerves II through XII are intact. No significant deficits noted. Discharge Data Data Completed and Pending: Completed Studies During Hospitalization Category Date Time Status CT abdomen pelvis w con* [id number] Rout ine Cat Scan 01/15/20 09:[address] head wo con* [id number] Routine Cat Scan 01/14/20 05:25 Completed XR chest 1V josé miguel ble [id number] Routine Exams 01/14/20 07:00 Completed XR chest 1V josé miguel ble [id number] Routine Exams 01/15/20 07:00 Completed XR chest 1V josé miguel ble [id number] Stat Exams 01/12/20 21:29 Completed CV carotid duplex BI* [id number] Routine Ultrasound 01/14/20 08:45 Completed CV echo complete* [id number] Routine Ultrasound 01/13/20 08:38 Completed Pending at discharge Category Date Time Status Arterial Blood Ga s W/O Coox Routine Lab 01/12/20 22:05 Received Labs from last 24 hours 01/16/20 01/16/20 01/16/20 06:00 04:27 04:27 WBC 8.0 RBC 4.60 Hgb 12.9 Hct 41.6 MCV 90.4 MCH 28.0 MCHC 31.0 RDW 13.7 Plt Count 327 MPV 10.0 Neut % (Auto) 64.2 Lymph % (Auto) 22.7 Howell % (Auto) 8.2 Eos % (Auto) 4.1 Baso % (Auto) 0.6 Neut # (Auto) 5.1 Lymph # (Auto) 1.8 Howell # (Auto) 0.7 Eos # (Auto) 0.3 Baso # (Auto) 0.1 Nucleated RBC % (a uto) 0 Nucleated RBCs # 0.0 Sodium 137 Potassium 3.7 Chloride 93 L Carbon Dioxide 33 H Anion Gap 14.7 BUN 27 H Creatinine 1.4 H Glucose 134 H POC Glucose 128 Calculated Osmolal ity 283 L Calcium 9.6 Phosphorus 5.9 H Magnesium 2.4 H Total Bilirubin 0.6 AST 21 ALT 18 Alkaline Phosphata se 110 H C-React Prot High Sens 1.090 H Total Protein 7.3 Albumin 4.1 Globulin 3.2 01/15/20 01/15/20 01/15/20 20:27 16:52 10:52 WBC RBC Hgb Hct MCV MCH MCHC RDW Plt Count MPV Neut % (Auto) Lymph % (Auto) Howell % (Auto) Eos % (Auto) Baso % (Auto) Neut # (Auto) Lymph # (Auto) Howell # (Auto) Eos # (Auto) Baso # (Auto) Nucleated RBC % (a uto) Nucleated RBCs # Sodium Potassium Chloride Carbon Dioxide Anion Gap BUN Creatinine Glucose POC Glucose 171 95 345 Calculated Osmolal ity Calcium Phosphorus Magnesium Total Bilirubin AST ALT Alkaline Phosphata se C-React Prot High Sens Total Protein Albumin Globulin Vitals: Last Vital Signs Temp 97.5 F L 01/16/20 08:02 Pulse 73 01/16/20 08:50 Resp 16 01/16/20 08:50 BP 153/76 01/16/20 08:05 Pulse Ox 93 01/16/20 08:50 Discharge Plan Discharge Patient Disposition: Home, Self-Care Condition: Good Prescriptions: New atenolol 50 mg Tablet 75 mg PO DAILY Qty: 45 RF: 0 furosemide 40 mg tablet 40 mg PO DAILY Qty: 30 RF: 0 levofloxacin 500 mg tablet 500 mg PO DAILY 7 Days Qty: 7 RF: 0 potassium chloride [Klor-Con M10] 10 mEq tablet,ER particles/crystals 10 meq PO DAILY Qty: 30 RF: 0 Continued glipizide 5 mg tablet 2.5 mg PO DAILY RF: 0 B Complex Plus Vitamin C 50-66-96-5-300 mg capsule 1 cap PO QDAY RF: 0 ropinirole 0.5 mg tablet 0.5 mg PO BEDTIME RF: 0 metformin 850 mg tablet 850 mg PO BID RF: 0 valsartan 80 mg tablet 80 mg PO BID RF: 0 isosorbide mononitrate 30 mg tablet extended release 24 hr 30 mg PO QAM RF: 0 atorvastatin 10 mg tablet 10 mg PO BEDTIME RF: 0 amlodipine 5 mg tablet 5 mg PO QDAY RF: 0 Zyrtec 10 mg capsule 10 mg PO DAILY RF: 0 Lactobacillus acidophilus [Acidophilus] Capsule 10 mg PO QDAY RF: 0 duloxetine [Cymbalta] 60 mg capsule,delayed release(DR/EC) 60 mg PO QDAY RF: 0 aspirin [Adult Aspirin Regimen] 81 mg tablet,delayed release (DR/EC) 81 mg PO QDAY RF: 0 lutein-zeaxanthin [Ocuvite Blue Light] 25-5 mg capsule 1 cap PO DAILY RF: 0 coenzyme [id number] E 100-100 mg-unit capsule 1 cap PO DAILY RF: 0 gabapentin 600 mg tablet 600 mg PO TID 30 Days Qty: 90 RF: 1 oxycodone 15 mg tablet 15 mg PO QID PRN (Reason: pain) 30 Days Qty: 120 RF: 0 methocarbamol 500 mg tablet 500 mg PO TID 30 Days Qty: 90 RF: 1 levothyroxine 112 mcg Tablet 112 mcg PO 0600 RF: 0 nortriptyline 50 mg capsule 50 mg PO QDAY RF: 0 Discontinued atenolol 50 mg tablet 50 mg PO QDAY RF: 0 Discharge Orders: Discharge Order (Routine); Ordered 01/16/20 Ordered By: Serjio Matute Other Ambulatory Orders: DME: Walker (Order) Location: None Selected Ordered By: Serjio Matute Referrals: Serjio Matute MD [Primary Care Provider] - 1 week Discharge Diet: Diabetic Discharge Activity: Increase activity as tolerated Activity Restrictions/Additional Instructions: If you are having increasing shortness of breath, please call [facility] or return to the ER. Discharge Attestations Time Spent in Discharge Care*: greater than 30 min Specific Discharge Activities: Specific discharge activities: educating patient, documenting/other paperwork and evaluating patient/reviewing data Quality Metrics Clinical Quality Measures During this hospital stay, did patient experience: None Coding Level of Care Code Acute Angio Technologist for Fortino Vega
[2020-01-16 11:24] LABS: Glucose Point of Care 196 mg/dL (70-110)
--- NOTE | 2020-01-16 12:03 | PC.NURSE ---
Discharge instructions given per the physician's orders. Patient verbalized understanding and did not have any further questions. Home O2 not delivered at this time.
--- NOTE | 2020-01-16 15:00 | PC.NURSE ---
Home oxygen and walker delivered by HOME.
[2020-01-17 14:33] LABS: ABG PCO2 46.7 mmHg (35-45); ABG PH Result 7.39 (7.35-7.45); Arterial Blood Gas Hematocrit 39.8 % (37-47); Base Excess ABG 2.9 mmol/L (-2.0-2.0); Blood Gas Allen Test Pos; Blood Gas Sample Site Radial, left; Blood Gas Sample Type Arterial; HCO3 ABG 28.5 mmol/L (22-26); Oxygen Device NC; PO2 ABG 65.5 mmHg (80.0-100.0)
== END 2020-01-16 15:30 | disposition home or self-care (01) | DRG 291 ==
LOC: ER 22:45 → ICU 22:57 → MEDSURG 01-14 12:33
PROVIDERS: Admitting Provider Family Medicine; Emergency Provider Emergency Medicine; Family Provider Family Medicine; PCP Family Medicine; Visit Provider Family Medicine
DX: I11.0 Hypertensive heart disease with heart failure (principal); J18.9 Pneumonia, unspecified organism; I16.0 Hypertensive urgency; I50.30 Unspecified diastolic (congestive) heart failure; I25.10 Atherosclerotic heart disease of native coronary artery without angina pectoris; E03.9 Hypothyroidism, unspecified; E11.9 Type 2 diabetes mellitus without complications; Z79.84 Long term (current) use of oral hypoglycemic drugs; Z79.82 Long term (current) use of aspirin; E78.5 Hyperlipidemia, unspecified; M50.30 Other cervical disc degeneration, unspecified cervical region; M51.36 Other intervertebral disc degeneration, lumbar region; Z87.442 Personal history of urinary calculi; M17.12 Unilateral primary osteoarthritis, left knee; G25.81 Restless legs syndrome; Z96.651 Presence of right artificial knee joint; Z95.5 Presence of coronary angioplasty implant and graft
CPT/HCPCS: 12345; 36415; 36416; 36600; 70450; 71045; 74177; 80048; 80053; 81001; 82803; 82962; 83036; 83735; 83880; 84100; 84439; 84443; 84484; 85025; 86141; 87804; 93005; 93306; 93880; 94640; 94660; 94664; 96372; 96375; 97110; 97116; 97161; 97530; 99283; J1650; J1815; J1940; J2270; J3490; Q9967

== ENCOUNTER 2020-02-16 15:20 | Inpatient (IN) | payer MEDICARE, SELFPAY ==
[2020-02-16] VITALS (24 sets, daily range): BP systolic 121–194; BP diastolic 60–141; PULSE 108–164; RESP 14–31; TEMP 36.8–37.5; O2SAT 91–98; BMI 31.8
--- NOTE | 2020-02-16 15:32 | CTR_ITS ---
PROCEDURE INFORMATION: Exam: CT Abdomen And Pelvis With Contrast Exam date and time: 02/16/2020 3:41 PM Age: 69 years old Clinical indication: Abdominal tenderness; Additional info: Abdominal pain TECHNIQUE: Imaging protocol: Computed tomography of the abdomen and pelvis with intravenous contrast. Radiation optimization: All CT scans at this facility use at least one of these dose optimization techniques: automated exposure control; mA and/or kV adjustment per patient size (includes targeted exams where dose is matched to clinical indication); or iterative reconstruction. Contrast material: VISI 320; Contrast volume: 95 ml; Contrast route: IV; COMPARISON: CT abdomen pelvis w con* [id number] 01/15/2020 11:11 AM RADIATION DOSE METRICS: Total DLP: 920.96 mGy-cm FINDINGS: Lungs: Limited assessment lung bases with mild dependent atelectasis. Liver: Mild diffuse fatty infiltration of the liver. Gallbladder and bile ducts: Gallbladder free of cholelithiasis. No visible intra or extrahepatic biliary ectasia. Enlarged hydropic gallbladder. Pancreas: Pancreas unremarkable for age. Mild pancreatic atrophy. No visible pancreatic ductal ectasia. Spleen: Unremarkable. No splenomegaly. Adrenals: Unremarkable. No mass. Kidneys and ureters: Unremarkable for age. No hydronephrosis. Stomach and bowel: Diffuse mucosal thickening of the 1st and 2nd portions of the duodenum suggesting active duodenitis. Cannot exclude a non perforated duodenal ulcer. Diverticulosis coli without evidence for diverticulitis. No visible adynamic or reactive ileus. Appendix: No visible evidence of appendicitis. Intraperitoneal space: No visible intraperitoneal ascites. No visible mesenteritis/panniculitis or mesenteric lymphadenitis. Vasculature: The abdominal aorta is nonaneurysmal. Mild arterial sclerotic disease. Lymph nodes: Unremarkable. No enlarged lymph nodes. Bladder: Unremarkable as visualized. Reproductive: Unremarkable as visualized. Bones/joints: Age-appropriate degenerative disease. Soft tissues: No visible acute process. Other findings: Obesity which results in increased quantum mottle artifact which degrades image quality in detail. Motion artifact. CT/CT abdomen pelvis w con* [id number] IMPRESSION: Findings consistent with proximal duodenitis. Cannot exclude a duodenal ulcer. Radiation Dose CTDIVOL = (mGy): DLP = 920.96 (mGy-cm)
--- NOTE | 2020-02-16 15:32 | CTR_ITS ---
PROCEDURE INFORMATION: Exam: CT Head Without Contrast Exam date and time: 02/16/2020 3:41 PM Age: 69 years old Clinical indication: Altered mental status/memory loss; Confusion or disorientation; Patient HX: Best imgages. PT uncooperative and combative; Additional info: Carson/ams TECHNIQUE: Imaging protocol: Computed tomography of the head without contrast. Radiation optimization: All CT scans at this facility use at least one of these dose optimization techniques: automated exposure control; mA and/or kV adjustment per patient size (includes targeted exams where dose is matched to clinical indication); or iterative reconstruction. COMPARISON: CT head wo con* [id number] 01/14/2020 5:38 AM RADIATION DOSE METRICS: Total DLP: 899.29 mGy-cm FINDINGS: Limitations: Study is somewhat limited by patient motion. Brain: There is a small calcified benign-appearing meningioma in the left temporal region not significantly changed. There is no intracranial mass, hemorrhage, or edema. There is moderate cortical atrophy. Ventricles: Normal. No ventriculomegaly. Bones/joints: Unremarkable. No acute fracture. Sinuses: Visualized sinuses are unremarkable. No fluid levels. Mastoid air cells: Visualized mastoid air cells are well aerated. Soft tissues: Unremarkable. Other findings: Findings are not significantly changed from previous. CT/CT head wo con* [id number] IMPRESSION: No acute intracranial finding Radiation Dose CTDIVOL = (mGy): DLP = 899.29 (mGy-cm)
--- NOTE | 2020-02-16 15:32 | XR_ITS ---
WS: [id number] PORTABLE CHEST HISTORY: cough COMPARISON: 01/15/2020 Lung volumes are decreased. No pneumonia. Normal vasculature. No pleural effusion or pneumothorax. Cardiac size: Mildly enlarged cardiac silhouette. Mediastinum/Aorta: Mild atherosclerosis aorta. Prior cervical fusion. XR/XR chest 1V portable [id number] IMPRESSION: Poor inspiration. Moderate cardiomegaly. No pneumonia.
--- NOTE | 2020-02-16 15:34 | ECG_ITS ---
Measurements Intervals [place] Rate: 116 P: 78 OR: 125 QRS: -22 QRSD: 103 T: 29 QT: 330 QTc: 459 Possible SINUS TACHYCARDIA WITH FREQUENT VENTRICULAR PREMATURE COMPLEXES BORDERLINE LEFT AXIS DEVIATION [QRS AXIS < -20] ABNORMAL RHYTHM ECG Compared to ECG 01/13/2020 03:49:24 Ventricular premature complex(es) now present Sinus rhythm no longer present Reviewed baseline artifact. Need to repeat the study Electronically Signed On 02-16-2020 18:46:19 CDT by Jasmine Arredondo M.D. [email or web address]
--- NOTE | 2020-02-16 15:44 | PC.NURSE ---
Pt is extremely altered upon arrival and agitated. Pt continuously moving and kicking. Sitter placed at bedside for pt safety.
[2020-02-16 15:50] LABS: Glucose Point of Care 99 mg/dL (70-110)
--- NOTE | 2020-02-16 15:52 | ED_ITS ---
HPI - Altered Mental Status General: Chief Complaint: Altered Mental Status Stated Complaint: FOUND UNRESPONSIVE Time Seen by Provider: 02/16/20 15:31 History of Present Illness: HPI narrative: Ms. Frank is a 69-year-old female who by EMS report was found on the floor by her landlord. The last time she was seen was 4 days ago. The patient was found today covered in her own feces, she is nonverbal and will not talk. The patient is acting erratic and not cooperative. There was stool found on the kitchen floor as well as in the bathroom. It is unknown how long the patient has been alone. She was noted to be very cold by EMS. All other information is taken from old charts. Review of Systems General: Reports: ROS unobtainable due to mental status PFSH ED PFSH: Medical History (Updated 02/16/20 @ 20:15 by Marlena Nieves) Cervical spine pain Congestive heart failure Coronary artery disease DDD (degenerative disc disease), cervical DJD (degenerative joint disease), lumbar Encounter for long-term use of opiate analgesic Facet syndrome, lumbar History of kidney stones History of urinary retention Lumbar radiculitis Primary osteoarthritis of left knee Restless leg Surgical History H/O lithotripsy S/P carpal tunnel release BILATERAL S/P cervical spinal fusion 04/26/2017-2000 S/P knee replacement RIGHT S/P PTCA (percutaneous transluminal coronary angioplasty) S/P tonsillectomy Family History Son Diabetes Other Osteoporosis Social History (Updated 02/16/20 @ 19:19 by Serjio Matute MD) Smoking and tobacco status: never smoked Second hand smoke exposure: Yes (20 years off and on) Alcohol intake: never Marital status: Current occupational status: retired History of recent travel: No Physical Exam Const: EXAM LIMITATIONS: altered mental status and behavioral limitations HENMT: COMMON NORMALS: normocephalic and head/scalp atraumatic HEAD & SCALP: normocephalic and atraumatic FACE & SINUS: normal facial exam Eye: COMMON NORMALS: PERRL, EOMs intact bilaterally, conjunctivae normal and no scleral icterus CONJUNCTIVA: Yes conjunctivae normal PUPIL: Yes PERRL Neck/C-Spine: COMMON NORMALS: full ROM, no lymphadenopathy, supple, no meningeal signs and no JVD Resp: COMMON NORMALS: normal respiratory effort, no retractions and clear to auscultation bilaterally AUSCULTATION: clear to auscultation bilaterally Cardio: COMMON NORMALS: no JVD, regular rhythm, S1 normal heart sound and S2 normal heart sound RATE: tachycardic RHYTHM: regular rhythm HEART SOUNDS: S1 normal and S2 normal GI: COMMON NORMALS: soft to palpation, no hepatosplenomegaly and no masses PALPATION: Yes soft and Yes no hepatosplenomegaly Extremity: NARRATIVE EXTREMITY EXAM: Moves all extremities equally. Diffuse bruising noted. Neuro: LJ COMA SCALE: document GCS findings [place] coma scale eye opening: Spontaneous [place] coma scale verbal response: None Lj coma scale motor response: Localising Lj coma scale total score: 10 MENINGEAL SIGNS: Yes no meningeal signs Skin: COMMON NORMALS: no jaundice and no petechiae NARRATIVE SKIN EXAM: Diffuse bruising noted throughout the trunk and extremities. Contusions are of multiple different ages. Course Vital Signs: Vital signs: Vital Signs Temperature 98.3 F 02/16/20 15:33 Pulse Rate 138 H 02/16/20 20:00 Respiratory Rate 14 02/16/20 20:00 Blood Pressure 194/118 02/16/20 20:00 Pulse Oximetry 94 02/16/20 20:00 MDM - Altered Mental Status MDM Narrative: Medical decision making narrative: Arrival -patient has altered mental status and is agitated and combative. I did review the case with Dr. Matute the patient's primary and he states that she has recently been told she was going to lose her home. He is concerned she may have ingested something to hurt herself. We will proceed with a work-up cautiously. We will try to slowly and gently sedate the patient with Ativan and if necessary Haldol. Admission -the patient's condition improved after some sedation with Haldol and Ativan. There is no definitive cause for her symptoms at this time although her urinalysis is pending. The case was endorsed to Dr. Matute is agreeable to admission and due to the troponin elevation is consulted Dr. Mcallister. They will both see the patient in the ICU. Lab Data: Labs: Lab Results 05/11/20 05/11/20 05/11/20 Range/Units 15:46 16:00 16:00 WBC (4.0-10.0) 10^3/ uL RBC (4.1-5.3) 10^6/u L Hgb (11.5-15.3) g/dL Hct (37.0-47.0) % MCV (81-99) fL MCH (28.0-34.0) pg MCHC (30.0-36.0) g/dL RDW (12.1-15.1) % Plt Count (130-400) 10^3/c mm MPV (7.4-10.4) fL Neut % (Auto) % Lymph % (Auto) % [place] % (Auto) % Eos % (Auto) % Baso % (Auto) % Neut # (Auto) (1.8-7.7) 10^3/u L Lymph # (Auto) (0.8-4.8) 10^3/u L [place] # (Auto) (0.2-0.9) 10^3/u L Eos # (Auto) (0.0-0.8) 10^3/u L Baso # (Auto) (0.0-0.1) 10^3/u L Nucleated RBC % (a uto) % Nucleated RBCs # /100WBC PT (10.5-13.3) SECO NDS INR (0.8-1.2) Sodium 148 H (136-145) mmol/L Potassium 3.5 (3.5-5.1) mmol/L Chloride 108 H (98-107) mmol/L Carbon Dioxide 21 L (22-29) mmol/L Anion Gap 22.5 H (5-19) BUN 35 H (8-23) mg/dL Creatinine 1.6 H (0.5-0.9) mg/dL Glucose 109 (65-115) mg/dL POC Glucose 99 (70-110) mg/dL Calculated Osmolal ity 304 H (285-295) mOsm/k g Lactic Acid (0.5-2.2) mmol/L Calcium 10.0 (8.5-10.5) mg/dL Magnesium 1.5 L (1.7-2.3) mg/dL Total Bilirubin 1.1 (0.15-1.2) mg/dL AST 184 H (0-32) U/L ALT 114 H (0-33) U/L Alkaline Phosphata se 99 (35-105) IU/L Ammonia 27 (11-51) umol/L Creatine Kinase 687 H* (26-192) U/L Troponin T Baselin e (0-10) ng/mL Troponin T 120 Min [place] (0-10) ng/mL Delta Troponin T (0-10) ABS# Total Protein 7.2 (6.6-8.7) g/dL Albumin 4.2 (3.5-5.2) g/dL Globulin 3.0 (1.3-4.6) g/dL Lipase 100 H (13-60) U/L TSH 1.01 (0.27-4.20) uIU/ mL Salicylates < 0.3 L (3-10) mg/dL Acetaminophen < 5.0 L (10-30) ug/mL Phenytoin 0.8 L (10-20) ug/mL Valproic Acid 2.8 L (50-100) mcg/mL Carbamazepine 2.0 L (4.0-12.0) ug/mL [place] (0.6-1.2) mmol/L Ethyl Alcohol < 10 (0-10) mg/dL 02/16/20 02/16/20 02/16/20 Range/Units 16:00 16:00 16:00 WBC 14.3 H (4.0-10.0) 10^3/ uL RBC 5.25 (4.1-5.3) 10^6/u L Hgb 14.9 (11.5-15.3) g/dL Hct 45.2 (37.0-47.0) % MCV 86.1 (81-99) fL MCH 28.4 (28.0-34.0) pg MCHC 33.0 (30.0-36.0) g/dL RDW 13.5 (12.1-15.1) % Plt Count 162 (130-400) 10^3/c mm MPV 9.5 (7.4-10.4) fL Neut % (Auto) 79.4 % Lymph % (Auto) 12.3 % [place] % (Auto) 7.8 % Eos % (Auto) 0.0 % Baso % (Auto) 0.1 % Neut # (Auto) 11.3 H (1.8-7.7) 10^3/u L Lymph # (Auto) 1.8 (0.8-4.8) 10^3/u L [place] # (Auto) 1.1 H (0.2-0.9) 10^3/u L Eos # (Auto) 0.0 (0.0-0.8) 10^3/u L Baso # (Auto) 0.0 (0.0-0.1) 10^3/u L Nucleated RBC % (a uto) 0 % Nucleated RBCs # 0.0 /100WBC PT 17.00 H (10.5-13.3) SECO NDS INR 1.33 H (0.8-1.2) Sodium (136-145) mmol/L Potassium (3.5-5.1) mmol/L Chloride (98-107) mmol/L Carbon Dioxide (22-29) mmol/L Anion Gap (5-19) BUN (8-23) mg/dL Creatinine (0.5-0.9) mg/dL Glucose (65-115) mg/dL POC Glucose (70-110) mg/dL Calculated Osmolal ity (285-295) mOsm/k g Lactic Acid 1.9 (0.5-2.2) mmol/L Calcium (8.5-10.5) mg/dL Magnesium (1.7-2.3) mg/dL Total Bilirubin (0.15-1.2) mg/dL AST (0-32) U/L ALT (0-33) U/L Alkaline Phosphata se (35-105) IU/L Ammonia (11-51) umol/L Creatine Kinase (26-192) U/L Troponin T Baselin e (0-10) ng/mL Troponin T 120 Min [place] (0-10) ng/mL Delta Troponin T (0-10) ABS# Total Protein (6.6-8.7) g/dL Albumin (3.5-5.2) g/dL Globulin (1.3-4.6) g/dL Lipase (13-60) U/L TSH (0.27-4.20) uIU/ mL Salicylates (3-10) mg/dL Acetaminophen (10-30) ug/mL Phenytoin (10-20) ug/mL Valproic Acid (50-100) mcg/mL Carbamazepine (4.0-12.0) ug/mL [place] (0.6-1.2) mmol/L Ethyl Alcohol (0-10) mg/dL 02/16/20 02/16/20 02/16/20 Range/Units 16:00 16:00 18:40 WBC (4.0-10.0) 10^3/ uL RBC (4.1-5.3) 10^6/u L Hgb (11.5-15.3) g/dL Hct (37.0-47.0) % MCV (81-99) fL MCH (28.0-34.0) pg MCHC (30.0-36.0) g/dL RDW (12.1-15.1) % Plt Count (130-400) 10^3/c mm MPV (7.4-10.4) fL Neut % (Auto) % Lymph % (Auto) % [place] % (Auto) % Eos % (Auto) % Baso % (Auto) % Neut # (Auto) (1.8-7.7) 10^3/u L Lymph # (Auto) (0.8-4.8) 10^3/u L [place] # (Auto) (0.2-0.9) 10^3/u L Eos # (Auto) (0.0-0.8) 10^3/u L Baso # (Auto) (0.0-0.1) 10^3/u L Nucleated RBC % (a uto) % Nucleated RBCs # /100WBC PT (10.5-13.3) SECO NDS INR (0.8-1.2) Sodium (136-145) mmol/L Potassium (3.5-5.1) mmol/L Chloride (98-107) mmol/L Carbon Dioxide (22-29) mmol/L Anion Gap (5-19) BUN (8-23) mg/dL Creatinine (0.5-0.9) mg/dL Glucose (65-115) mg/dL POC Glucose (70-110) mg/dL Calculated Osmolal ity (285-295) mOsm/k g Lactic Acid (0.5-2.2) mmol/L Calcium (8.5-10.5) mg/dL Magnesium (1.7-2.3) mg/dL Total Bilirubin (0.15-1.2) mg/dL AST (0-32) U/L ALT (0-33) U/L Alkaline Phosphata se (35-105) IU/L Ammonia (11-51) umol/L Creatine Kinase (26-192) U/L Troponin T Baselin e 307 H* (0-10) ng/mL Troponin T 120 Min [place] 290.4 H (0-10) ng/mL Delta Troponin T -16.6 L (0-10) ABS# Total Protein (6.6-8.7) g/dL Albumin (3.5-5.2) g/dL Globulin (1.3-4.6) g/dL Lipase (13-60) U/L TSH (0.27-4.20) uIU/ mL Salicylates (3-10) mg/dL Acetaminophen (10-30) ug/mL Phenytoin (10-20) ug/mL Valproic Acid (50-100) mcg/mL Carbamazepine (4.0-12.0) ug/mL [place] 0.1 L (0.6-1.2) mmol/L Ethyl Alcohol (0-10) mg/dL Imaging Data^: CT Head: Radiologist's impression: [address] [address] [address] Scan Report Signed Patient: Eunice Frank Unit #: [id number] : 1950 Age/Sex: 69 / F ADM Date: 02/16/20 Loc: ER Room/Bed: Attending Dr: Ordering Provider/Ordering MD: Marlena Nieves DO Date of Service: 02/16/20 Procedure(s): CT head wo con* [id number] Accession Number(s): [id number] Report Number: [id number] PROCEDURE INFORMATION: Exam: CT Head Without Contrast Exam date and time: 02/16/2020 3:41 PM Age: 69 years old Clinical indication: Altered mental status/memory loss; Confusion or disorientation; Patient HX: Best imgages. PT uncooperative and combative; Additional info: Carson/ams TECHNIQUE: Imaging protocol: Computed tomography of the head without contrast. Radiation optimization: All CT scans at this facility use at least one of these dose optimization techniques: automated exposure control; mA and/or kV adjustment per patient size (includes targeted exams where dose is matched to clinical indication); or iterative reconstruction. COMPARISON: CT head wo con* [id number] 01/14/2020 5:38 AM RADIATION DOSE METRICS: Total DLP: 899.29 mGy-cm FINDINGS: Limitations: Study is somewhat limited by patient motion. Brain: There is a small calcified benign-appearing meningioma in the left temporal region not significantly changed. There is no intracranial mass, hemorrhage, or edema. There is moderate cortical atrophy. Ventricles: Normal. No ventriculomegaly. Bones/joints: Unremarkable. No acute fracture. Sinuses: Visualized sinuses are unremarkable. No fluid levels. Mastoid air cells: Visualized mastoid air cells are well aerated. Soft tissues: Unremarkable. Other findings: Findings are not significantly changed from previous. CT/CT head wo con* [id number] IMPRESSION: No acute intracranial finding Radiation Dose CTDIVOL = (mGy): DLP = 899.29 (mGy-cm) Dictated By: Scout Haider Signed By: Scout Haider Signed Date/Time: 02/16/201838 DD/ 37 CT Abd/Pel: Radiologist's impression: [address] [address] [address] Scan Report Signed Patient: Eunice Frank Unit #: [id number] : 1950 Age/Sex: 69 / F ADM Date: 02/16/20 Loc: ER Room/Bed: Attending Dr: Ordering Provider/Ordering MD: Marlena Nieves DO Date of Service: 02/16/20 Procedure(s): CT abdomen pelvis w con* [id number] Accession Number(s): [id number] Report Number: [id number] PROCEDURE INFORMATION: Exam: CT Abdomen And Pelvis With Contrast Exam date and time: 02/16/2020 3:41 PM Age: 69 years old Clinical indication: Abdominal tenderness; Additional info: Abdominal pain TECHNIQUE: Imaging protocol: Computed tomography of the abdomen and pelvis with intravenous contrast. Radiation optimization: All CT scans at this facility use at least one of these dose optimization techniques: automated exposure control; mA and/or kV adjustment per patient size (includes targeted exams where dose is matched to clinical indication); or iterative reconstruction. Contrast material: VISI 320; Contrast volume: 95 ml; Contrast route: IV; COMPARISON: CT abdomen pelvis w con* [id number] 01/15/2020 11:11 AM RADIATION DOSE METRICS: Total DLP: 920.96 mGy-cm FINDINGS: Lungs: Limited assessment lung bases with mild dependent atelectasis. Liver: Mild diffuse fatty infiltration of the liver. Gallbladder and bile ducts: Gallbladder free of cholelithiasis. No visible intra or extrahepatic biliary ectasia. Enlarged hydropic gallbladder. Pancreas: Pancreas unremarkable for age. Mild pancreatic atrophy. No visible pancreatic ductal ectasia. Spleen: Unremarkable. No splenomegaly. Adrenals: Unremarkable. No mass. Kidneys and ureters: Unremarkable for age. No hydronephrosis. Stomach and bowel: Diffuse mucosal thickening of the 1st and 2nd portions of the duodenum suggesting active duodenitis. Cannot exclude a non perforated duodenal ulcer. Diverticulosis coli without evidence for diverticulitis. No visible adynamic or reactive ileus. Appendix: No visible evidence of appendicitis. Intraperitoneal space: No visible intraperitoneal ascites. No visible mesenteritis/panniculitis or mesenteric lymphadenitis. Vasculature: The abdominal aorta is nonaneurysmal. Mild arterial sclerotic disease. Lymph nodes: Unremarkable. No enlarged lymph nodes. Bladder: Unremarkable as visualized. Reproductive: Unremarkable as visualized. Bones/joints: Age-appropriate degenerative disease. Soft tissues: No visible acute process. Other findings: Obesity which results in increased quantum mottle artifact which degrades image quality in detail. Motion artifact. CT/CT abdomen pelvis w con* [id number] IMPRESSION: Findings consistent with proximal duodenitis. Cannot exclude a duodenal ulcer. Radiation Dose CTDIVOL = (mGy): DLP = 920.96 (mGy-cm) Dictated By: Evan Wood Signed By: Evan Wood Signed Date/Time: 02/16/201843 DD/ 42 EKG Data^: EKG 1: Attestation: I personally reviewed and interpreted this EKG as follows: EKG interpretation date: 02/16/20 EKG interpretation time: 15:44 Interpretation: Sinus tachycardia at 116 beats a minute, left axis deviation, PVCs, significant baseline artifact. Discharge Plan Discharge Patient Disposition: Admitted As Inpatient Admit Provider: Serjio Matute Clinical Impression: Altered mental status Condition: Stable Interventions: ED Discharge Assessment Last Done: 02/16/20 20:00 ED Charges Last Done: 02/16/20 20:00 Discharge Date/Time: 02/16/20 20:03 Coding Level of Care Code ED Outpatient Facility Physical Therapist for Chg Fwd Exam Comprehensive
[2020-02-16] MEDS: LORazepam 2 mg/mL INJ 1 mL 1 MG IVP ×2 (16:05→17:16)
--- NOTE | 2020-02-16 16:15 | ECG_ITS ---
Measurements Intervals [place] Rate: 116 P: 78 NM: 125 QRS: -22 QRSD: 103 T: 29 QT: 330 QTc: 459 SINUS TACHYCARDIA WITH FREQUENT VENTRICULAR PREMATURE COMPLEXES BORDERLINE LEFT AXIS DEVIATION [QRS AXIS < -20] ABNORMAL RHYTHM ECG Compared to ECG 01/13/2020 03:49:24 Ventricular premature complex(es) now present Sinus rhythm no longer present Electronically Signed On 02-17-2020 19:44:29 CDT by Mehdi Hollins M.D. [email or web address]
[2020-02-16 16:17] LABS: Basophils % 0.1 %; Hematocrit 45.2 % (37.0-47.0); Hemoglobin 14.9 g/dL (11.5-15.3); Lymphocytes # 1.8 10^3/uL (0.8-4.8); Lymphocytes % 12.3 %; Mean Corpuscular Hemoglobin 28.4 pg (28.0-34.0); Mean Corpuscular Volume 86.1 fL (81-99); Mean Platelet Volume 9.5 fL (7.4-10.4); Monocytes # 1.1 10^3/uL (0.2-0.9); Monocytes % 7.8 %; Neutrophils # 11.3 10^3/uL (1.8-7.7); Neutrophils % 79.4 %; Nucleated Red Blood Cells % 0 %; Platelet Count 162 10^3/cmm (130-400); Red Blood Count 5.25 10^6/uL (4.1-5.3); Red Cell Distribution Width 13.5 % (12.1-15.1); White Blood Count 14.3 10^3/uL (4.0-10.0)
[2020-02-16 16:28] LABS: INR 1.33 (0.8-1.2)
[2020-02-16 16:31] LABS: Ammonia 27 umol/L (11-51); Lactic Sepsis W/Reflex 1.9 mmol/L (0.5-2.2)
[2020-02-16 16:34] LABS: Lithium 0.1 mmol/L (0.6-1.2)
[2020-02-16 16:42] LABS: Alanine Aminotransferase 114 U/L (0-33); Albumin Level 4.2 g/dL (3.5-5.2); Alkaline Phosphatase 99 IU/L (35-105); Anion Gap 22.5 (5-19); Aspartate Amino Transferase 184 U/L (0-32); Blood Urea Nitrogen 35 mg/dL (8-23); Carbon Dioxide 21 mmol/L (22-29); Chloride 108 mmol/L (98-107); Glucose 109 mg/dL (65-115); Lipase 100 U/L (13-60); Magnesium 1.5 mg/dL (1.7-2.3); Osmolality Calculated 304 mOsm/kg (285-295); Phenytoin Dilantin 0.8 ug/mL (10-20); Potassium 3.5 mmol/L (3.5-5.1); Sodium 148 mmol/L (136-145); Thyroid Stimulating Hormone 1.01 uIU/mL (0.27-4.20); Total Bilirubin 1.1 mg/dL (0.15-1.2); Total Protein 7.2 g/dL (6.6-8.7); Valproic Acid Level 2.8 mcg/mL (50-100)
[2020-02-16] MEDS: sodium chloride 0.9% 1,000 ML 999 ML IV (17:12)
[2020-02-16 17:15] LABS: Acetaminophen < 5.0 ug/mL (10-30); Alcohol Level < 10 mg/dL (0-10); Creatine Phosphokinase 687 U/L (26-192); Salicylate < 0.3 mg/dL (3-10); Troponin(5th) Baseline 307 ng/mL (0-10)
[2020-02-16] MEDS: iodixanol 320 mg/mL 100mL Btl IV (18:16)
[2020-02-16] MEDS: haloperidol inj 5 mg/mL INJ 1 mL IM (19:01)
--- NOTE | 2020-02-16 19:12 | PM.HP ---
Providers/Chief Complaint Primary Care Provider: Serjio Matute MD Chief Complaint: FOUND UNRESPONSIVE History of Present Illness Eunice Frank is a 69 year old female with PMH of DM, HTN, CAD, Dyslipidemia, diastolic CHF and hypothyroidism who was recently hospitalized for fluid overload and hypertensive urgency. The patient was found in her home unresponsive today. Apparently the other tenants in the building did not have hot water so the apartment maintenance supervisor entered her room and found that she was unresponsive in the bath tub while it was running. There was no further hot water. She was not able to converse and was brought to the ER. In the ER the patient has been quite combative and has not been answering questions. She was unable to give any history. She would found to have an initially elevated troponin as well as CK level. Review of Systems General: Reports: ROS unobtainable due to mental status Medications/Allergies Home Medications Medication Instructions Recorded Confirmed Last Taken Type Lactobacillus acidophilus 10 mg PO QDAY 10/27/19 02/16/20 01/12/20 08:00 History amlodipine 5 mg tablet 5 mg PO DAILY 10/27/19 02/16/20 01/12/20 08:00 History aspirin 81 mg tablet,delayed 81 mg PO QDAY 10/27/19 02/16/20 01/12/20 08:00 History release atorvastatin 10 mg tablet 10 mg PO BEDTIME 10/27/19 02/16/20 01/11/20 21:00 History cetirizine 10 mg capsule 10 mg PO DAILY cap 10/27/19 02/16/20 01/12/20 08:00 History coenzyme [id number] E 100 mg-100 1 cap PO DAILY cap 10/27/19 02/16/20 01/12/20 08:00 History unit capsule duloxetine 60 mg capsule,delayed 60 mg PO DAILY 10/27/19 02/16/20 01/12/20 08:00 History release glipizide 5 mg tablet 2.5 mg PO DAILY 10/27/19 02/16/20 01/12/20 08:00 History isosorbide mononitrate 30 mg 30 mg PO QAM 10/27/19 02/16/20 01/12/20 08:00 History tablet,extended release 24 hr lutein 25 mg-zeaxanthin 5 mg 1 cap PO DAILY cap 10/27/19 02/16/20 01/12/20 08:00 History capsule metformin 850 mg tablet 850 mg PO BID 10/27/19 02/16/20 01/12/20 08:00 History ropinirole 0.5 mg tablet 0.5 mg PO BEDTIME 10/27/19 02/16/20 01/11/20 21:00 History valsartan 80 mg tablet 80 mg PO BID 10/27/19 02/16/20 01/12/20 08:00 History vitamin B comp and C no.3 15 mg-10 1 cap PO DAILY 10/27/19 02/16/20 01/12/20 08:00 History mg-50 mg-5 mg-300 mg capsule gabapentin 600 mg tablet 600 mg PO TID 30 Days #90 tab 12/18/19 02/16/20 01/12/20 12:00 Rx methocarbamol 500 mg tablet 500 mg PO TID 30 Days #90 tab 12/18/19 02/16/20 01/12/20 12:00 Rx oxycodone 15 mg tablet 15 mg PO QID PRN 30 Days #120 tab 12/18/19 02/16/20 01/12/20 12:00 Rx levothyroxine 112 mcg PO 0600 01/13/20 02/16/20 01/12/20 06:00 History nortriptyline 50 mg PO BEDTIME 01/13/20 02/16/20 01/12/20 08:00 History atenolol 75 mg PO DAILY #45 tab 01/16/20 02/16/20 Unknown Rx potassium chloride [Klor-Con M10] 10 meq PO DAILY #30 tab 01/16/20 02/16/20 Unknown Rx furosemide 40 mg PO DAILY PRN 02/16/20 02/16/20 Unknown History Allergies Allergy/AdvReac Type Severity Reaction Status Date / Time Pork/Porcine Containing Allergy Mild Unknown Verified 01/15/20 12:12 Products strawberry Allergy Mild Unknown Verified 01/15/20 12:12 budesonide [From Symbicort] Allergy ALGY-Rash Verified 01/12/20 21:27 codeine Allergy ADR-Itching Verified 01/12/20 21:27 formoterol [From Symbicort] Allergy ALGY-Rash Verified 01/12/20 21:27 meloxicam [From Mobic] Allergy ADR-Nausea Verified 01/12/20 21:27 Penicillins Allergy ALGY-Hives Verified 01/12/20 21:27 tetracycline Allergy ADR-Cramping Verified 01/12/20 21:27 of the Muscles PFSH Acute PFSH: Medical History Cervical spine pain Congestive heart failure Coronary artery disease DDD (degenerative disc disease), cervical DJD (degenerative joint disease), lumbar Encounter for long-term use of opiate analgesic Facet syndrome, lumbar History of kidney stones History of urinary retention Lumbar radiculitis Primary osteoarthritis of left knee Restless leg Surgical History H/O lithotripsy S/P carpal tunnel release BILATERAL S/P cervical spinal fusion 04/26/2017-2000 S/P knee replacement RIGHT S/P PTCA (percutaneous transluminal coronary angioplasty) S/P tonsillectomy Family History Son Diabetes Other Osteoporosis Social History (Updated 02/16/20 @ 19:19 by Serjio Matute MD) Smoking and tobacco status: never smoked Second hand smoke exposure: Yes (20 years off and on) Alcohol intake: never Marital status: Current occupational status: retired History of recent travel: No Vitals/I&O/Wt Last Vital Signs Temp 98.3 F 02/16/20 15:33 Pulse 113 H 02/16/20 15:33 Resp 18 02/16/20 15:33 BP 194/111 02/16/20 15:33 Pulse Ox 97 02/16/20 15:33 Weight last 48 hrs Weight 180 lb Physical Exam Narrative: EXAM NARRATIVE: General: Awake but not oriented. Looking around room wildly and constantly trying to move away from staff. Appears to be in fear. Mouth: Patient would not open mouth to evaluate. Cardiac: Tachycardic with irregularly irregular rhythm. Lungs: Clear to auscultation bilaterally without wheezes, crackles or rhonchi Abdomen: Soft, nontender, no hepatosplenomegaly noted Extremities: No edema Skin: There is erythema across the entire back, buttocks and legs and arms concerning for mild scalding consistent with initially hot bath water. No signs of 2nd degree or 3rd degree myers. Urinary Catheter Management^: [place]: Cath Placed During This Visit: yes Urinary Catheter Date of Insertion: 02/16/20 Urinary Catheter Time of Insertion: 19:02 Data : 02/16/20 16:00 02/16/20 16:00 Micro: Microbiology 02/16/20 15:50 C.difficile Toxin B Gene (PCR) - Final Stool A&P Assessment and plan (1) Rhabdomyolysis: Status: Acute (2) Troponin level elevated: Status: Acute (3) Altered mental status: Status: Acute (4) Atrial fibrillation: Status: Acute (5) Hypertension: Status: Acute (6) Diabetes: Status: Acute (7) Hypothyroidism: Status: Acute Additional A&P Information 1. Rhabdomylosis - The patient has a significantly elevated CK level likely from being found down and in the tub for an unknown period of time. No obvious fracture noted at this time but as her mind clears we may need to reevaluate for this. The patient has gotten a liter of fluid in the ER. Continue with 100ml/hr for now due to previously being fluid overloaded. 2. Elevated Troponin - The first troponin was over 300. Last month it was 8. Will contact cardiology and watch for the second troponin. She has a history of a 60% blockage in the LAD in 10/2018 that was not stented. 3. New onset A fib. - Will defer to cardiology in terms of rate control vs rhythm control. This may self-resolve if we can clear up the elevated CK and underlying problem. 4. Altered Mental Status - The underlying cause for this is unclear but is likely due to the elevate CK and troponin. CT head negative. CT abd with only some mild duodenitis. Consider gallbladder US if labs show signs of further infection. Urine pending. 5. Hypertension - Treat Hypertension with home meds if the patient will cooperate to take meds PO. If not, will need to control with IV meds. 6. Hypomagnesemia - Replace via IV 7. DM2 - Insulin sliding scale 8. Hypothyroidism - Check thyroid levels 9. Prophylaxis - Heparin for now until we know that no interventions are needed. Attestations Medical Necessity Statement*: The patient needs to be hospitalized due to the above issues and I expect her stay to cross two midnights. She requires ICU care at this time. 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
--- NOTE | 2020-02-16 19:18 | PC.NURSE ---
Patient sitter at bedside, patient fighting monitors, IV lines, aldrich catheter.
[2020-02-16 19:32] LABS: Troponin 5 2HR 290.4 ng/mL (0-10); Troponin 5 2HR Delta -16.6 ABS# (0-10)
[2020-02-16 20:30] LABS: Amphetamines Screen Urine Negative (Negative); Barbiturates Screen Urine Negative (Negative); Benzodiazepines Screen Urine Negative (Negative); Cocaine Screen Urine Negative (Negative); Opiate Screen Urine Negative (Negative); PCP Screen Urine Negative (Negative); THC Screen Urine Negative (Negative)
[2020-02-16 20:41] LABS: Urine Color Yellow (Yellow)
[2020-02-16 20:42] LABS: Glucose Urine UA Norm (Normal); Protein Urine Trace (Negative); Urine Appearance Clear (CLEAR); pH Urine 5 (5-7)
[2020-02-16 20:43] LABS: Bilirubin Urine Neg (NEGATIVE); Blood Urine 3+ (Negative); Ketones Urine 1+ (Negative); Leukocyte Esterase Urine Negative (Negative); Nitrate Urine Negative (Negative); Urobilinogen Urine Norm (Negative)
[2020-02-16 20:44] LABS: Add Urine Culture? Yes; Amorphous Sediment Urine 1+; Bacteria Urine TRACE
[2020-02-16] MEDS: dexmedetomidine 400 MCG in sodium chloride 0.9% (100 ml) 100 ML IV (20:59)
[2020-02-16] MEDS: heparin 5,000 unit/mL INJ 1 mL 5000 UNIT SUBCUT (21:17)
[2020-02-16] MEDS: sodium chloride 0.9% 1,000 ML 100 ML IV (21:17)
[2020-02-16 21:20] LABS: Glucose Point of Care 99 mg/dL (70-110)
[2020-02-16] MEDS: morphine 4 mg/mL SDV 1 mL IVP (21:41)
[2020-02-16] MEDS: magnesium sulfate premix 2 GM/50 ML PIGGYBACK IV (21:41)
[2020-02-16 22:33] LABS: Troponin 5 6HR 251.9 ng/mL (0-10); Troponin 5 6HR Delta -55.1 ng/L (0-12)
--- NOTE | 2020-02-16 22:45 | PM.CONSULT ---
Providers/Reason For Consult Consulting Physican/Specialty*: Cardiology Reason for Consult*: Tachycardia Acute coronary syndrome Altered mental status Attending Physician: Serjio Matute MD Primary Care Provider: Serjio Matute MD History of Present Illness History of Present Illness Eunice Frank is a 69 year old female past medical history significant for congestive heart failure, hypertension, diabetes mellitus, anxiety depression was found in the bathtub with running hot water for unknown period of time. Patient was brought into the emergency room where she exhibited altered mental status. Her behavior was combative requiring one-to-one sitter. During investigation she was found to have elevated BUN creatinine and high CK suggestive of rhabdomyolysis. I was told that patient was in A. fib in the emergency room, i have not seen the strips. Twelve-lead EKG had a lot of artifact therefore cannot tell for sure. On telemetry she appears to be in sinus tachycardia however she was started on Cardizem drip. Her cardiac markers were elevated in the range of 300. Twelve-lead EKG did not show any significant ST?T changes. Total CK was in high 600. Review of Systems General: Reports: ROS unobtainable due to mental status Musc: Denies: joint warmth Psych: Reports: sleeping more All/Imm: Denies: acute wheezing Meds/Allergies Home Medications and Allergies Home Medications Medication Instructions Recorded Confirmed Last Taken Type Lactobacillus acidophilus 10 mg PO QDAY 10/27/19 02/16/20 01/12/20 08:00 History amlodipine 5 mg tablet 5 mg PO DAILY 10/27/19 02/16/20 01/12/20 08:00 History aspirin 81 mg tablet,delayed 81 mg PO QDAY 10/27/19 02/16/20 01/12/20 08:00 History release atorvastatin 10 mg tablet 10 mg PO BEDTIME 10/27/19 02/16/20 01/11/20 21:00 History cetirizine 10 mg capsule 10 mg PO DAILY cap 10/27/19 02/16/20 01/12/20 08:00 History coenzyme [id number] E 100 mg-100 1 cap PO DAILY cap 10/27/19 02/16/20 01/12/20 08:00 History unit capsule duloxetine 60 mg capsule,delayed 60 mg PO DAILY 10/27/19 02/16/20 01/12/20 08:00 History release glipizide 5 mg tablet 2.5 mg PO DAILY 10/27/19 02/16/20 01/12/20 08:00 History isosorbide mononitrate 30 mg 30 mg PO QAM 10/27/19 02/16/20 01/12/20 08:00 History tablet,extended release 24 hr lutein 25 mg-zeaxanthin 5 mg 1 cap PO DAILY cap 10/27/19 02/16/20 01/12/20 08:00 History capsule metformin 850 mg tablet 850 mg PO BID 10/27/19 02/16/20 01/12/20 08:00 History ropinirole 0.5 mg tablet 0.5 mg PO BEDTIME 10/27/19 02/16/20 01/11/20 21:00 History valsartan 80 mg tablet 80 mg PO BID 10/27/19 02/16/20 01/12/20 08:00 History vitamin B comp and C no.3 15 mg-10 1 cap PO DAILY 10/27/19 02/16/20 01/12/20 08:00 History mg-50 mg-5 mg-300 mg capsule gabapentin 600 mg tablet 600 mg PO TID 30 Days #90 tab 12/18/19 02/16/20 01/12/20 12:00 Rx methocarbamol 500 mg tablet 500 mg PO TID 30 Days #90 tab 12/18/19 02/16/20 01/12/20 12:00 Rx oxycodone 15 mg tablet 15 mg PO QID PRN 30 Days #120 tab 12/18/19 02/16/20 01/12/20 12:00 Rx levothyroxine 112 mcg PO 0600 01/13/20 02/16/20 01/12/20 06:00 History nortriptyline 50 mg PO BEDTIME 01/13/20 02/16/20 01/12/20 08:00 History atenolol 75 mg PO DAILY #45 tab 01/16/20 02/16/20 Unknown Rx potassium chloride [Klor-Con M10] 10 meq PO DAILY #30 tab 01/16/20 02/16/20 Unknown Rx furosemide 40 mg PO DAILY PRN 02/16/20 02/16/20 Unknown History Allergies Allergy/AdvReac Type Severity Reaction Status Date / Time Pork/Porcine Containing Allergy Mild Unknown Verified 01/15/20 12:12 Products strawberry Allergy Mild Unknown Verified 01/15/20 12:12 budesonide [From Symbicort] Allergy ALGY-Rash Verified 01/12/20 21:27 codeine Allergy ADR-Itching Verified 01/12/20 21:27 formoterol [From Symbicort] Allergy ALGY-Rash Verified 01/12/20 21:27 meloxicam [From Mobic] Allergy ADR-Nausea Verified 01/12/20 21:27 Penicillins Allergy ALGY-Hives Verified 01/12/20 21:27 tetracycline Allergy ADR-Cramping Verified 01/12/20 21:27 of the Muscles Current Medications Current Medications Generic Name Dose Route Start Last Admin Trade Name Freq PRN Reason Stop Dose Admin Aspirin 81 mg 02/16/20 20:58 02/16/20 21:10 Aspirin Ec PO Not Given DAILY ANUPAM Heparin Sodium (Beef Lung) 5,000 unit 02/16/20 20:30 02/16/20 21:17 Heparin SUBCUT 5,000 unit Q8H ANUPAM Administration Sodium Chloride 1,000 mls @ 150 mls/hr 02/16/20 15:45 02/16/20 21:23 Sodium Chloride 0.9% IV Not Given .Q6H40M ANUPAM Diltiazem HCl 125 mg/ Sodium 125 mls @ 0 mls/hr 02/16/20 16:30 02/16/20 18:00 Chloride IV 15 mg/hr .Q0M ANUPAM 15 mls/hr Titration Protocol Per Protocol Dexmedetomidine HCl 400 mcg/ 104 mls @ 0 mls/hr 02/16/20 20:30 02/16/20 22:12 Sodium Chloride IV 0.7 mcg/kg/hr .Q0M ANUPAM 14.9 mls/hr Titration Protocol Per Protocol Sodium Chloride 1,000 mls @ 100 mls/hr 02/16/20 20:58 02/16/20 21:17 Sodium Chloride 0.9% IV 100 mls/hr .Q10H ANUPAM Administration Insulin Aspart 0 unit 02/16/20 21:00 02/16/20 21:09 Novolog SUBCUT Not Given WM&BEDTIME ANUPAM Protocol Morphine Sulfate 4 mg 02/16/20 20:58 02/16/20 21:41 Morphine IVP 4 mg Q4H PRN Administration SEVERE PAIN PFSH Acute PFSH: Medical History (Updated 02/16/20 @ 23:10 by Mehdi Hollins MD) Cervical spine pain Congestive heart failure Coronary artery disease DDD (degenerative disc disease), cervical DJD (degenerative joint disease), lumbar Encounter for long-term use of opiate analgesic Facet syndrome, lumbar History of kidney stones History of urinary retention Lumbar radiculitis Primary osteoarthritis of left knee Restless leg Surgical History H/O lithotripsy S/P carpal tunnel release BILATERAL S/P cervical spinal fusion 04/26/2017-2000 S/P knee replacement RIGHT S/P PTCA (percutaneous transluminal coronary angioplasty) S/P tonsillectomy Family History Son Diabetes Other Osteoporosis Social History Smoking and tobacco status: never smoked Second hand smoke exposure: Yes (20 years off and on) Alcohol intake: never Marital status: Current occupational status: retired History of recent travel: No Dietary Habits: Current diet type/program: regular Caffeine: Yes Caffeine intake frequency: carbonated beverages Vitals/I&O/Wt Last Vital Signs Temp 98.3 F 02/16/20 15:33 Pulse 130 H 02/16/20 21:00 Resp 21 H 02/16/20 21:41 BP 194/118 02/16/20 20:00 Pulse Ox 93 02/16/20 21:41 02/16/20 02/16/20 02/16/20 06:59 14:59 22:59 Intake Total 1014.136 / 1014.136 Balance 1014.136 / 1014.136 Weight last 48 hrs Weight 180 lb Physical Exam Narrative: EXAM NARRATIVE: GENERAL: Patient is arousable but not oriented of time and space NECK: No jugular vein distension. HEENT: No cyanosis. No icterus. No pallor. HEART: Regular S1 and S2. No murmur, rub or gallop. LUNGS: Clear to auscultate bilaterally. ABDOMEN: Soft, nontender and nondistended. Positive bowel sounds. CENTRAL NERVOUS SYSTEM: Disoriented cannot assess fully EXTREMITIES: Lower extremities without edema bilaterally. Redness of the skin due to scold Urinary Catheter Management^: [place]: Cath Placed During This Visit: yes Reason for Continuing Indwelling Catheter: Accurate Measurement of Urinary Output in Critically Ill Patients Urinary Catheter Date of Insertion: 02/16/20 Urinary Catheter Time of Insertion: 19:02 Data Micro: Micro: Microbiology 02/16/20 15:50 C.difficile Toxin B Gene (PCR) - Fin al Stool A&P Assessment and plan (1) Altered mental status: Multiple factors including drugs overdose, UTI, stroke, electrolyte imbalance less likely acute coronary syndrome Status: Acute Qualifiers: Altered mental status type: unspecified Qualified Code(s): R41.82 - Altered mental status, unspecified (2) Congestive heart failure: Appears to be Status: Acute Qualifiers: Heart failure type: unspecified Heart failure chronicity: chronic Qualified Code(s): I50.9 - Heart failure, unspecified (3) Hypertension: Well-controlled Status: Acute Qualifiers: Hypertension type: essential hypertension Qualified Code(s): I10 - Essential (primary) hypertension (4) Acute renal failure (ARF): Most likely due to dehydration/rhabdomyolysis. Patient was already started on IV fluid by ER and Dr. Matute. We will continue fluid. Status: Acute Qualifiers: Acute renal failure type: unspecified Qualified Code(s): N17.9 - Acute kidney failure, unspecified (5) Non-ST elevation KS (NSTEMI): Cardiac markers are elevated in the range of non-ST elevation KS. Could be demand ischemia, sepsis myocarditis is the option however would like to rule out obstructive coronary artery disease once creatinine is normal for now we will anticoagulate her Status: Acute (6) Rhabdomyolysis: Continue IV fluid Status: Acute (7) Tachycardia: Patient appeared to be in sinus tachycardia have not seen the prior strips as she was thought to be in atrial fibrillation. Continue Cardizem. Hopefully once we will replenish her fluid status heart rate will improve. 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
--- NOTE | 2020-02-16 22:57 | PC.NURSE ---
patient is still confused pulling at lines and attempting to get out of bed. patient is unable to follow commands and hits staff and bites at them while grinding her teeth.
[2020-02-17] VITALS (39 sets, daily range): BP systolic 94–196; BP diastolic 43–115; PULSE 65–107; RESP 13–30; TEMP 36.5–37.2; O2SAT 89–98
[2020-02-17] MEDS: morphine 4 mg/mL SDV 1 mL IVP (01:47)
[2020-02-17] MEDS: heparin 5,000 unit/mL INJ 1 mL 5000 UNIT SUBCUT ×2 (04:56→21:00)
[2020-02-17 05:55] LABS: Basophils % 0.4 %; Eosinophils # 0.1 10^3/uL (0.0-0.8); Eosinophils % 0.8 %; Hematocrit 37.1 % (37.0-47.0); Hemoglobin 11.9 g/dL (11.5-15.3); Lymphocytes % 20.8 %; Mean Corpuscular HGB Conc 32.1 g/dL (30.0-36.0); Mean Corpuscular Hemoglobin 28.7 pg (28.0-34.0); Mean Corpuscular Volume 89.6 fL (81-99); Mean Platelet Volume 10.2 fL (7.4-10.4); Monocytes # 0.7 10^3/uL (0.2-0.9); Monocytes % 7.1 %; Neutrophils # 6.9 10^3/uL (1.8-7.7); Neutrophils % 70.6 %; Nucleated Red Blood Cells % 0 %; Platelet Count 114 10^3/cmm (130-400); Red Blood Count 4.14 10^6/uL (4.1-5.3); Red Cell Distribution Width 13.8 % (12.1-15.1); White Blood Count 9.7 10^3/uL (4.0-10.0)
[2020-02-17 06:05] LABS: INR 1.43 (0.8-1.2)
[2020-02-17 06:36] LABS: Alanine Aminotransferase 170 U/L (0-33); Albumin Level 3.3 g/dL (3.5-5.2); Alkaline Phosphatase 74 IU/L (35-105); Anion Gap 15.9 (5-19); Aspartate Amino Transferase 225 U/L (0-32); Blood Urea Nitrogen 28 mg/dL (8-23); Calcium 8.4 mg/dL (8.5-10.5); Carbon Dioxide 21 mmol/L (22-29); Chloride 115 mmol/L (98-107); Glucose 119 mg/dL (65-115); Magnesium 2.2 mg/dL (1.7-2.3); NT Pro B Type Natriuretic Pept 8611 pg/mL (0-125); Osmolality Calculated 306 mOsm/kg (285-295); Phosphorus 2.8 mg/dL (2.5-4.5); Sodium 149 mmol/L (136-145); Total Protein 5.3 g/dL (6.6-8.7)
[2020-02-17 06:37] LABS: Free T4 Free Thyroxine 1.21 ng/dL (0.82-1.77); Thyroid Stimulating Hormone 1.64 uIU/mL (0.27-4.20)
[2020-02-17 06:43] LABS: Potassium 2.9 mmol/L (3.5-5.1)
--- NOTE | 2020-02-17 07:24 | P.PN_ITS ---
Subjective Subjective: Interval history: The patient was placed on Precedex secondary to significant agitation and trying to pull out her IVs. The patient continued to be confused. With the Precedex it did help to calm her down some. The patient was on a nitro drip and Cardizem drip. These of been able to be weaned down. The patient's blood pressures are starting to come into a normal range. The patient converted into a sinus rhythm overnight. She continues to be confused per nursing. Vitals/I&O/Wt Last Vital Signs Temp 99.5 F 02/16/20 22:00 Pulse 71 02/17/20 04:00 Resp 22 H 02/17/20 04:00 BP 105/64 02/17/20 04:00 Pulse Ox 90 02/17/20 04:00 02/16/20 02/17/20 02/17/20 22:59 06:59 14:59 Intake Total 1014.136 / 1014.136 214.864 / 1229.000 Output Total 750 / 750 Balance 1014.136 / 1014.136 -535.136 / 479.000 Weight last 48 hrs Weight 180 lb Physical Exam Narrative: EXAM NARRATIVE: General: Sedated and sleeping. Mouth: Mucous membranes are dry. Cardiac: Regular rate and rhythm without murmurs. Lungs: Clear to auscultation bilaterally without wheezes, crackles or rhonchi Abdomen: Soft, nontender, no hepatosplenomegaly noted Extremities: No edema Skin: There is erythema across the entire back, buttocks and legs and arms concerning for mild scalding consistent with initially hot bath water. No signs of 2nd degree or 3rd degree myers. Urinary Catheter Management^: [place]: Cath Placed During This Visit: yes Reason for Continuing Indwelling Catheter: Accurate Measurement of Urinary Output in Critically Ill Patients Urinary Catheter Date of Insertion: 02/16/20 Urinary Catheter Time of Insertion: 19:02 Data : 02/17/20 05:00 02/17/20 05:00 Micro: Microbiology 02/16/20 15:50 C.difficile Toxin B Gene (PCR) - Final Stool A&P Assessment and plan (1) Rhabdomyolysis: Status: Acute (2) Troponin level elevated: Status: Deleted (3) Altered mental status: Status: Acute (4) Atrial fibrillation: Status: Acute (5) Hypertension: Status: Acute Qualifiers: Hypertension type: essential hypertension Qualified Code(s): I10 - Essential (primary) hypertension (6) Diabetes: Status: Acute (7) Hypothyroidism: Status: Acute Additional A&P Information 1. Rhabdomylosis - The patient has an elevated CK level likely from being found down and in the tub for an unknown period of time. No obvious fracture noted at this time but as her mind clears we may need to reevaluate for this. Continue with gentle IV fluids as to not fluid overload her. Recheck CK levels this morning. 2. Elevated Troponin - The first troponin was over 300 and the overall trend is downwards. Last month it was 8. She has a history of a 60% blockage in the LAD in 10/2018 that was not stented. I spoke with Dr. Hollins who agreed to follow along with the patient. The plan will be to see how her kidney function does and get an echocardiogram today. Likely angiogram once her renal function improves and depending on her course. 3. New onset A fib. -The patient does not have signs of atrial fibrillation today. She is in a regular rate and rhythm. EKG in the ER showed a lot of artifact that could have looked like A. fib. 4. Altered Mental Status - The underlying cause for this is unclear but is likely due to the elevate CK and troponin. CT head negative. CT abd with only some mild duodenitis. Consider gallbladder US if labs show signs of further infection. Urine pending. Currently patient is on Precedex and this will be weaned off gently. We will watch for signs of the patient is less agitated as this is weaned. My hope is that as her CK levels improve that she will improve mentally as well. 5. Hypertension -currently well controlled with the Cardizem drip. We will g radually wean this down. We will restart oral meds once patient is able to take them by mouth. 6. Hypomagnesemia - Replaced via IV 7. DM2 - Insulin sliding scale 8. Hypothyroidism - Check thyroid levels 9. Prophylaxis - Heparin for now until we know that no interventions are needed. Attestations Medical Necessity Statement*: Patient continues in ICU care for the above issues. Her stay will cross 2 midnights. 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
[2020-02-17 07:34] LABS: Glucose Point of Care 130 mg/dL (70-110)
[2020-02-17] MEDS: sodium chloride 0.9% 1,000 ML 100 ML IV ×2 (07:52→19:24)
[2020-02-17] MEDS: potassium chloride premix 40 MEQ/100 ML PREMIX 25 MEQ IV (07:52)
[2020-02-17 07:53] LABS: Creatine Phosphokinase 609 U/L (26-192)
--- NOTE | 2020-02-17 11:39 | PM.PN ---
Subjective Subjective: Interval history: Patient is sedated. Blood pressure is stable heart rate within normal limit in sinus rhythm. Vitals/I&O/Wt Last Vital Signs Temp 97.7 F 02/17/20 08:30 Pulse 68 02/17/20 08:30 Resp 17 02/17/20 08:30 BP 124/72 02/17/20 08:30 Pulse Ox 90 02/17/20 08:30 02/16/20 02/17/20 02/17/20 22:59 06:59 14:59 Intake Total 1014.136 / 1014.136 214.864 / 1229.000 Output Total 750 / 750 50 / 50 Balance 1014.136 / 1014.136 -535.136 / 479.000 -50 / -50 Weight last 48 hrs Weight 180 lb Physical Exam Narrative: EXAM NARRATIVE: GENERAL: Patient is sedated due to disorientation and agitation NECK: No jugular vein distension. HEENT: No cyanosis. No icterus. No pallor. HEART: Regular S1 and S2. No murmur, rub or gallop. LUNGS: Clear to auscultate bilaterally. ABDOMEN: Soft, nontender and nondistended. Positive bowel sounds. CENTRAL NERVOUS SYSTEM: Disoriented cannot assess fully EXTREMITIES: Lower extremities without edema bilaterally. Redness of the skin due to scold Urinary Catheter Management^: Valencia: Cath Placed During This Visit: yes Reason for Continuing Indwelling Catheter: Accurate Measurement of Urinary Output in Critically Ill Patients Urinary Catheter Date of Insertion: 02/16/20 Urinary Catheter Time of Insertion: 19:02 Data : 02/17/20 05:00 02/17/20 05:00 Micro: Microbiology 02/16/20 15:50 C.difficile Toxin B Gene (PCR) - Final Stool A&P Assessment and plan (1) Altered mental status: Multiple factors including drugs overdose, UTI, stroke, electrolyte imbalance less likely acute coronary syndrome Status: Acute Qualifiers: Altered mental status type: unspecified Qualified Code(s): R41.82 - Altered mental status, unspecified (2) Congestive heart failure: Appears to be compensated rather on right side Status: Acute Qualifiers: Heart failure type: unspecified Heart failure chronicity: chronic Qualified Code(s): I50.9 - Heart failure, unspecified (3) Hypertension: Well-controlled Status: Acute Qualifiers: Hypertension type: essential hypertension Qualified Code(s): I10 - Essential (primary) hypertension (4) Acute renal failure (ARF): Continue IV fluid. Status: Acute Qualifiers: Acute renal failure type: unspecified Qualified Code(s): N17.9 - Acute kidney failure, unspecified (5) Non-ST elevation IA (NSTEMI): Cardiac markers are elevated in the range of non-ST elevation IA. Could be demand ischemia, sepsis myocarditis is the option however would like to rule out obstructive coronary artery disease once creatinine is normal for now we will anticoagulate her Patient has history of nonobstructive coronary artery disease as per Dr. Matute. We will ask for echocardiogram once improved creatinine grover we will consider left heart cath. Status: Acute (6) Rhabdomyolysis: Continue IV fluid Status: Acute (7) Tachycardia: Currently in sinus rhythm. Will stop diltiazem. 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
--- NOTE | 2020-02-17 11:45 | USCV_ITS ---
Eunice Frank Age: 69 Gender: F : 1950 Exam Date: 02/17/2020 14:43 Ordering Phys: Mehdi Hollins MD ([email or web address]) Technologist: Tatiana Chahal Exam Location: [facility] [place] Indication: FOUND UNRESPONSIVE BP: 160 / 86 HR: 87 Rhythm: Sinus Technical Quality: Technically difficult study MEASUREMENTS (Male / Female) Normal Values 2D ECHO LV Diastolic Diameter PLAX 4.3 cm 4.2 - 5.9 / 3.9 - 5.3 cm LV Systolic Diameter PLAX 2.5 cm LV Chamber Size 3.2 cm IVS Diastolic Thickness 1.9 cm 0.6 - 1.0 / 0.6 - 0.9 cm IVS Systolic Thickness 1.5 cm LVPW Diastolic Thickness 1.1 cm 0.6 - 1.0 / 0.6 - 0.9 cm LVPW Systolic Thickness 2.0 cm RV Chamber Size 2.0 cm LVOT Diameter 2.0 cm LV Ejection Fraction 2D Teich 71.5 % LA Diameter 4.3 cm LA Width 3.2 cm LA Height 3.3 cm RA Width 3.0 cm RA Height 3.9 cm Aorta at Sinotubular Diameter 2.8 cm M-MODE LV Diastolic Diameter MM 5.8 cm 4.2 - 5.9 / 3.9 - 5.3 cm LV Systolic Diameter MM 3.3 cm LV Ejection Fraction MM Teich 74.6 % IVS Diastolic Thickness MM 1.0 cm 0.6 - 1.0 / 0.6 - 0.9 cm IVS Systolic Thickness MM 1.6 cm LVPW Diastolic Thickness MM 1.0 cm 0.6 - 1.0 / 0.6 - 0.9 cm LVPW Systolic Thickness MM 1.8 cm RV Diastolic Diameter MM 2.0 cm Aortic Annulus Diameter 3.8 cm LA Ao Ratio MM 1.1 MV E Point Septal Separation 0.6 cm DOPPLER AV Peak Velocity 133.0 cm/s LVOT Peak Velocity 99.0 cm/s AV Area Cont Eq vti 2.9 cm squared AV Area Cont Eq pk 2.3 cm squared MV Area PHT 22.0 cm squared Mitral E to A Ratio 0.7 MV E' Velocity 6.0 cm/s Mitral E to MV E' Ratio 10.3 Mitral E to LV E' Lateral Ratio 12.7 Mitral E to LV E' Septal Ratio 8.7 TR Peak Velocity 292.1 cm/s TR Peak Gradient 34.1 mmHg TR Mean Velocity 215.4 cm/s TR Mean Gradient 19.8 mmHg TR Velocity Time Integral 70.9 cm TV Peak E Velocity 75.0 cm/s PV Peak Velocity 61.0 cm/s RV Acceleration Time 0.1 s RV Ejection Time 0.3 s RV AcT/ET 0.3 FINDINGS Left Ventricle Normal left ventricular cavity size. Normal left ventricular systolic function. No regional wall motion abnormalities. Left ventricular ejection fraction is estimated at 65 %. Grade I/IV diastolic dysfunction (abnormal relaxation filling pattern), normal to mildly elevated filling pressures. Right Ventricle The right ventricle is normal in size and function. RVSP could not be calculated due to incomplete tricuspid regurgitation velocity profile. Right Atrium The right atrium is normal in size. Left Atrium The left atrium is normal in size. Mitral Valve Thickened mitral valve. No mitral valve stenosis. Mild mitral annular calcification. Trace mitral valve regurgitation. Aortic Valve Moderate aortic valve calcification. No aortic valve stenosis. Trace aortic valve regurgitation. Tricuspid Valve Structurally normal tricuspid valve without significant stenosis or regurgitation. Pulmonic Valve Structurally normal pulmonic valve without significant stenosis. There is no pulmonic regurgitation. Pericardium Normal pericardium without effusion. Aorta Normal ascending aorta dimension. CONCLUSIONS 1-Normal left ventricular cavity size. Normal left ventricular systolic function. No regional wall motion abnormalities. Left ventricular ejection fraction is estimated at 65 %. Grade I/IV diastolic dysfunction (abnormal relaxation filling pattern), normal to mildly elevated filling pressures. 2-Moderate aortic valve calcification. No aortic valve stenosis. Trace aortic valve regurgitation. 3-Thickened mitral valve. No mitral valve stenosis. Mild mitral annular calcification. Trace mitral valve regurgitation. 4-The right ventricle is normal in size and function. RVSP could not be calculated due to incomplete tricuspid regurgitation velocity profile. 5-There is no pericardial effusion. 6-Right atrial pressure is around 5 mm of mercury. 7-No significant change since the prior echocardiogram study of 01/13/2020. Mehdi Hollins MD (Electronically Signed) Final Date: 18 Feb 2020 10:33 S
[2020-02-17 11:57] LABS: Glucose Point of Care 109 mg/dL (70-110)
[2020-02-17] MEDS: dexmedetomidine 400 MCG in sodium chloride 0.9% (100 ml) 100 ML 10.6 MCG IV (12:13)
[2020-02-17 13:29] LABS: CKMB 24.1 ng/mL (0-5.34); CKMB Relative Index 3.9 % (0.0-10.4)
--- NOTE | 2020-02-17 13:59 | PC.NURSE ---
Pt eating ice chips well. A message was sent to Dr. Matute to see if we could try to feed her.
[2020-02-17 16:44] LABS: Glucose Point of Care 134 mg/dL (70-110)
[2020-02-17 17:08] LABS: Alanine Aminotransferase 470 U/L (0-33); Albumin Level 3.5 g/dL (3.5-5.2); Alkaline Phosphatase 83 IU/L (35-105); Anion Gap 16.9 (5-19); Blood Urea Nitrogen 26 mg/dL (8-23); Calcium 8.7 mg/dL (8.5-10.5); Carbon Dioxide 20 mmol/L (22-29); Chloride 115 mmol/L (98-107); Globulin 2.3 g/dL (1.3-4.6); Glucose 127 mg/dL (65-115); Osmolality Calculated 304 mOsm/kg (285-295); Potassium 3.9 mmol/L (3.5-5.1); Sodium 148 mmol/L (136-145); Total Bilirubin 1.1 mg/dL (0.15-1.2); Total Protein 5.8 g/dL (6.6-8.7)
[2020-02-17] MEDS: losartan 50 mg Tablet 25 MG PO (19:21)
[2020-02-17 19:38] LABS: Aspartate Amino Transferase 605 U/L (0-32)
--- NOTE | 2020-02-17 20:51 | PC.NURSE ---
Precedex infusing at 0.5 mcg/kg/hr upon assuming care of patient. Patient lethargic and confused upon awakening. Precedex drip stopped, will continue to monitor.
[2020-02-18] VITALS (77 sets, daily range): BP systolic 107–218; BP diastolic 48–111; PULSE 58–110; RESP 12–41; TEMP 36.5–36.8; O2SAT 90–98
[2020-02-18] MEDS: nitroglycerin drip 50 MG/250 ML PREMIX IV (00:40)
--- NOTE | 2020-02-18 00:44 | PC.NURSE ---
Patient awake and alert but only oriented to self.Crying quietly but will not state why she is crying. Denies pain. Dr Matute paged as BP 201/84, orders received to start nitro drip per DEC. Precedex restarted at 0.2 mcg/kg/hr.
--- NOTE | 2020-02-18 02:06 | PC.NURSE ---
Error in charting at 2000. Patient in NSR upon assuming care of patient at 1900. Will continue to monitor.
[2020-02-18] MEDS: dexmedetomidine 400 MCG in sodium chloride 0.9% (100 ml) 100 ML 6.4 MCG IV (02:44)
[2020-02-18] MEDS: isosorbide mononitrate ER 30 mg Tablet PO (05:29)
[2020-02-18] MEDS: levothyroxine 112 mcg Tablet PO (05:29)
[2020-02-18 06:12] LABS: Alanine Aminotransferase 609 U/L (0-33); Albumin Level 3.4 g/dL (3.5-5.2); Alkaline Phosphatase 86 IU/L (35-105); Anion Gap 18.5 (5-19); Aspartate Amino Transferase 615 U/L (0-32); Blood Urea Nitrogen 20 mg/dL (8-23); Calcium 8.5 mg/dL (8.5-10.5); Carbon Dioxide 18 mmol/L (22-29); Chloride 112 mmol/L (98-107); Globulin 2.5 g/dL (1.3-4.6); Glucose 101 mg/dL (65-115); Magnesium 2.1 mg/dL (1.7-2.3); NT Pro B Type Natriuretic Pept 2098 pg/mL (0-125); Osmolality Calculated 297 mOsm/kg (285-295); Potassium 3.5 mmol/L (3.5-5.1); Sodium 145 mmol/L (136-145); Total Bilirubin 1.1 mg/dL (0.15-1.2); Total Protein 5.9 g/dL (6.6-8.7)
[2020-02-18 06:22] LABS: Basophils # 0.1 10^3/uL (0.0-0.1); Basophils % 0.5 %; Eosinophils # 0.2 10^3/uL (0.0-0.8); Eosinophils % 1.8 %; Hematocrit 40.6 % (37.0-47.0); Hemoglobin 12.9 g/dL (11.5-15.3); Lymphocytes # 1.6 10^3/uL (0.8-4.8); Lymphocytes % 16.4 %; Mean Corpuscular HGB Conc 31.8 g/dL (30.0-36.0); Mean Corpuscular Hemoglobin 28.3 pg (28.0-34.0); Monocytes # 0.5 10^3/uL (0.2-0.9); Monocytes % 4.9 %; Neutrophils # 7.4 10^3/uL (1.8-7.7); Neutrophils % 75.9 %; Nucleated Red Blood Cells % 0 %; Platelet Count 127 10^3/cmm (130-400); Red Blood Count 4.56 10^6/uL (4.1-5.3); Red Cell Distribution Width 13.7 % (12.1-15.1); White Blood Count 9.7 10^3/uL (4.0-10.0)
--- NOTE | 2020-02-18 07:42 | P.PN_ITS ---
Subjective Subjective: Interval history: The patient is more awake and alert today. She is now comfortable and no longer agitated. She can answer a few questions, however it is mainly with yes and no responses. She is not able to expound on information. Vitals/I&O/Wt Last Vital Signs Temp 98.9 F 02/17/20 20:00 Pulse 97 02/18/20 06:00 Resp 22 H 02/18/20 06:00 BP 171/88 02/18/20 06:00 Pulse Ox 96 02/18/20 06:00 02/17/20 02/18/20 02/18/20 22:59 06:59 14:59 Intake Total 1597.203 / 1597.203 189.735 / 1786.938 Output Total 350 / 475 375 / 850 Balance 1247.203 / 1122.203 -185.265 / 936.938 Weight last 48 hrs Weight 199 lb 9.6 oz Weight 199 lb 9.6 oz Weight 180 lb Physical Exam Narrative: EXAM NARRATIVE: General: Awake, answering a few questions with yes and no answers. Stares off into space frequently and has a hard time responding to complex questions. Mouth: Mucous membranes are moist. Cardiac: Regular rate and rhythm without murmurs. Lungs: Clear to auscultation bilaterally without wheezes, crackles or rhonchi Abdomen: Soft, nontender, no hepatosplenomegaly noted Extremities: No edema Neurologic: No noted weakness in the bilateral upper and lower extremities. ROBERT CHRISTINE Urinary Catheter Management^: Valencia: Cath Placed During This Visit: yes Reason for Continuing Indwelling Catheter: Accurate Measurement of Urinary Output in Critically Ill Patients Urinary Catheter Date of Insertion: 02/16/20 Urinary Catheter Time of Insertion: 19:02 Data : 02/18/20 06:12 02/18/20 03:25 A&P Assessment and plan (1) Rhabdomyolysis: Status: Acute (2) Troponin level elevated: Status: Deleted (3) Altered mental status: Status: Acute (4) Atrial fibrillation: Status: Acute (5) Hypertension: Status: Acute Qualifiers: Hypertension type: essential hypertension Qualified Code(s): I10 - Essential (primary) hypertension (6) Diabetes: Status: Acute (7) Hypothyroidism: Status: Acute Additional A&P Information 1. Rhabdomylosis - The patient has an elevated CK level likely from being found down and in the tub for an unknown period of time. No obvious fracture noted at this time. Patient not complaining of any pain. Continue with gentle IV fluids as to not fluid overload her. Recheck CK levels tomorrow morning. 2. Elevated Troponin - The first troponin was over 300 and the overall trend is downwards. Last month it was 8. She has a history of a 60% blockage in the LAD in 10/2018 that was not stented. I spoke with Dr. Hollins who agreed to follow along with the patient. The plan will be to see how her kidney function does and get an echocardiogram. Likely angiogram once her renal function improves and depending on her course. She is becoming more clear and may be candidate over the next couple of days. 3. New onset A fib. -The patient does not have signs of atrial fibrillation today. She is in a regular rate and rhythm. EKG in the ER showed a lot of artifact that could have looked like A. fib. 4. Altered Mental Status - The underlying cause for this is unclear but is likely due to the elevate CK and troponin. CT head negative. CT abd with only some mild duodenitis. Consider gallbladder US if labs show signs of further infection. Urine negative so far. The patient's overall mental status has improved, however she is only able to answer with yes and no answers and was not able to expound on what happened. If she is not continuing to improve, we may consider an MRI brain to rule out a stroke that would not have been seen on a CT scan. 5. Hypertension -currently well controlled with the Cardizem drip. The patient is taking medications by mouth better, so we will restart home meds and wean off the drip as possible. 6. Hypomagnesemia - Replaced via IV 7. DM2 - Insulin sliding scale 8. Hypothyroidism -thyroid levels okay. Continue with levothyroxine. 9. Hypophosphatemia -replace via IV. 10. Duodenitis -we will start Protonix for treatment of presumed duodenitis. 11. Elevated transaminases -I believe that this is likely secondary to the above, however if her liver enzymes continue to elevate, we may consider other causes. The differential would include tickborne illness, viral hepatitis, mononucleosis, etc. If kidney function continues to improve, we may consider repeat imaging. 12. Prophylaxis - Heparin for now until we know that no interventions are needed. Attestations Medical Necessity Statement*: Patient continues need ICU care for treatment of the above issues. Her stay will certainly cross 2 midnights. 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
[2020-02-18] MEDS: gabapentin 300 mg Capsule 600 MG PO ×3 (08:20→20:22)
[2020-02-18] MEDS: atenolol 50 mg Tablet 75 MG PO (08:20)
[2020-02-18] MEDS: pantoprazole DR 40 mg Tablet PO ×2 (08:22→18:24)
[2020-02-18] MEDS: duloxetine 60 mg Capsule PO (08:22)
[2020-02-18] MEDS: amlodipine 5 mg Tablet PO (08:22)
[2020-02-18] MEDS: losartan 50 mg Tablet 25 MG PO ×2 (08:22→18:25)
[2020-02-18] MEDS: sodium chloride 0.9% 1,000 ML 100 ML IV ×3 (08:23→21:05)
[2020-02-18] MEDS: aspirin 81 mg EC Tablet PO (08:23)
[2020-02-18 08:56] LABS: Glucose Point of Care 102 mg/dL (70-110)
[2020-02-18 08:56] LABS: Glucose Point of Care 137 mg/dL (70-110)
--- NOTE | 2020-02-18 11:10 | PM.PN ---
Subjective Subjective: Interval history: Patient blood pressure remains elevated she is slightly tachycardic conscious level has improved. Creatinine is also improved. Vitals/I&O/Wt Last Vital Signs Temp 98.9 F 02/17/20 20:00 Pulse 88 02/18/20 10:45 Resp 23 H 02/18/20 10:45 BP 147/88 02/18/20 10:45 Pulse Ox 94 02/18/20 10:45 02/17/20 02/18/20 02/18/20 22:59 06:59 14:59 Intake Total 1597.203 / 6886.796 2230.735 / 2786.938 575.054 / 575.054 Output Total 350 / 475 375 / 850 Balance 1247.203 / 1122.203 814.735 / 1936.938 575.054 / 575.054 Weight last 48 hrs Weight 199 lb 9.6 oz Weight 199 lb 9.6 oz Weight 180 lb Physical Exam Narrative: EXAM NARRATIVE: GENERAL: Patient conscious level has improved. She is responding but still disoriented NECK: No jugular vein distension. HEENT: No cyanosis. No icterus. No pallor. HEART: Regular S1 and S2. No murmur, rub or gallop. LUNGS: Clear to auscultate bilaterally. ABDOMEN: Soft, nontender and nondistended. Positive bowel sounds. CENTRAL NERVOUS SYSTEM: Disoriented cannot assess fully EXTREMITIES: Lower extremities without edema bilaterally. Redness of the skin due to scold Urinary Catheter Management^: Valencia: Cath Placed During This Visit: yes Reason for Continuing Indwelling Catheter: Accurate Measurement of Urinary Output in Critically Ill Patients Urinary Catheter Date of Insertion: 02/16/20 Urinary Catheter Time of Insertion: 19:02 Data : 02/18/20 06:12 02/18/20 03:25 Micro: Microbiology 02/18/20 09:43 Blood Culture - Preliminary Blood SPECIMEN COLLECTED 02/18/20 09:40 Blood Culture - Preliminary Blood SPECIMEN COLLECTED A&P Assessment and plan (1) Altered mental status: Continues to improve. Status: Acute Qualifiers: Altered mental status type: unspecified Qualified Code(s): R41.82 - Altered mental status, unspecified (2) Congestive heart failure: Appears to be compensated rather on right side Status: Acute Qualifiers: Heart failure type: unspecified Heart failure chronicity: chronic Qualified Code(s): I50.9 - Heart failure, unspecified (3) Hypertension: Not well controlled at this point we will add carvedilol to the regimen. Status: Acute Qualifiers: Hypertension type: essential hypertension Qualified Code(s): I10 - Essential (primary) hypertension (4) Acute renal failure (ARF): Improved and normalized Status: Acute Qualifiers: Acute renal failure type: unspecified Qualified Code(s): N17.9 - Acute kidney failure, unspecified (5) Non-ST elevation VA (NSTEMI): Cardiac markers are elevated in the range of non-ST elevation VA. Could be demand ischemia, sepsis myocarditis is the option however would like to rule out obstructive coronary artery disease once creatinine is normal for now we will anticoagulate her Patient has history of nonobstructive coronary artery disease as per Dr. Matute. We will ask for echocardiogram once improved creatinine grover we will consider left heart cath. Today we will add beta-gonzalo. Once fully oriented we will proceed with angiogram. Echocardiogram showed normal left ventricle function without significant wall motion abnormality. Status: Acute (6) Rhabdomyolysis: Continue IV fluid Status: Acute (7) Tachycardia: We will add beta-gonzalo. Status: Acute Attestations Medical Necessity Statement*: Patient require continuation hospitalization for above defined care. 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
[2020-02-18 11:36] LABS: Glucose Point of Care 122 mg/dL (70-110)
[2020-02-18] MEDS: heparin 5,000 unit/mL INJ 1 mL 5000 UNIT SUBCUT ×2 (13:28→20:22)
[2020-02-18] MEDS: morphine 4 mg/mL SDV 1 mL IVP (13:28)
[2020-02-18 18:04] LABS: Glucose Point of Care 107 mg/dL (70-110)
[2020-02-18] MEDS: dexmedetomidine 400 MCG in sodium chloride 0.9% (100 ml) 100 ML IV (19:33)
[2020-02-18 20:54] LABS: Glucose Point of Care 133 mg/dL (70-110)
[2020-02-19] VITALS (18 sets, daily range): BP systolic 118–193; BP diastolic 56–106; PULSE 57–99; RESP 15–23; TEMP 36.6–36.8; O2SAT 90–100
[2020-02-19] MEDS: morphine 4 mg/mL SDV 1 mL IVP ×2 (00:38→23:26)
[2020-02-19 04:08] LABS: Basophils % 0.4 %; Eosinophils # 0.3 10^3/uL (0.0-0.8); Eosinophils % 4.7 %; Hematocrit 36.5 % (37.0-47.0); Hemoglobin 11.6 g/dL (11.5-15.3); Lymphocytes # 1.7 10^3/uL (0.8-4.8); Lymphocytes % 22.9 %; Mean Corpuscular HGB Conc 31.8 g/dL (30.0-36.0); Mean Corpuscular Hemoglobin 28.8 pg (28.0-34.0); Mean Corpuscular Volume 90.6 fL (81-99); Mean Platelet Volume 10.9 fL (7.4-10.4); Monocytes # 0.4 10^3/uL (0.2-0.9); Neutrophils # 4.8 10^3/uL (1.8-7.7); Neutrophils % 65.6 %; Nucleated Red Blood Cells % 0 %; Platelet Count 117 10^3/cmm (130-400); Red Blood Count 4.03 10^6/uL (4.1-5.3); Red Cell Distribution Width 13.4 % (12.1-15.1); White Blood Count 7.3 10^3/uL (4.0-10.0)
[2020-02-19 04:30] LABS: Alanine Aminotransferase 431 U/L (0-33); Albumin Level 3.3 g/dL (3.5-5.2); Alkaline Phosphatase 92 IU/L (35-105); Anion Gap 13.8 (5-19); Aspartate Amino Transferase 231 U/L (0-32); Blood Urea Nitrogen 16 mg/dL (8-23); CKMB 6.7 ng/mL (0-5.34); CKMB Relative Index 4.4 % (0.0-10.4); Calcium 8.6 mg/dL (8.5-10.5); Carbon Dioxide 21 mmol/L (22-29); Chloride 112 mmol/L (98-107); Creatine Phosphokinase 151 U/L (26-192); Globulin 2.2 g/dL (1.3-4.6); Glucose 112 mg/dL (65-115); Magnesium 1.8 mg/dL (1.7-2.3); Osmolality Calculated 293 mOsm/kg (285-295); Phosphorus 3.8 mg/dL (2.5-4.5); Potassium 3.8 mmol/L (3.5-5.1); Sodium 143 mmol/L (136-145); Total Bilirubin 0.8 mg/dL (0.15-1.2); Total Protein 5.5 g/dL (6.6-8.7)
[2020-02-19] MEDS: heparin 5,000 unit/mL INJ 1 mL 5000 UNIT SUBCUT ×3 (05:07→22:24)
[2020-02-19] MEDS: isosorbide mononitrate ER 30 mg Tablet PO (05:07)
[2020-02-19] MEDS: levothyroxine 112 mcg Tablet PO (05:07)
--- NOTE | 2020-02-19 06:30 | P.PN_ITS ---
Subjective Subjective: Interval history: The patient is much more alert this morning. She is able to talk and interact and is no longer disruptive. The patient denies any chest pains, shortness of breath, abdominal pain, nausea, vomiting, pain in joints. Vitals/I&O/Wt Last Vital Signs Temp 98 F 02/19/20 06:00 Pulse 62 02/19/20 06:00 Resp 18 02/19/20 06:00 BP 139/56 02/19/20 06:00 Pulse Ox 97 02/19/20 06:00 02/18/20 02/18/20 02/19/20 14:59 22:59 06:59 Intake Total 793.754 / 330.852 1064.446 / 2169.200 254.420 / 2423.620 Output Total 225 / 225 225 / 450 Balance 793.754 / 653.923 4863.446 / 1944.200 29.420 / 1973.620 Weight last 48 hrs Weight 209 lb 11.2 oz Weight 199 lb 9.6 oz Weight 199 lb 9.6 oz Physical Exam Narrative: EXAM NARRATIVE: General: Awake, alert, oriented x3, answering questions appropriately. Back to baseline. Mouth: Mucous membranes are moist. Cardiac: Regular rate and rhythm without murmurs. Lungs: Clear to auscultation bilaterally without wheezes, crackles or rhonchi Abdomen: Soft, nontender, no hepatosplenomegaly noted Extremities: No edema Neurologic: No noted weakness in the bilateral upper and lower extremities. ROBERT CHRISTINE Urinary Catheter Management^: Valencia: Cath Placed During This Visit: yes Reason for Continuing Indwelling Catheter: Accurate Measurement of Urinary Outpu t in Critically Ill Patients Urinary Catheter Date of Insertion: 02/16/20 Urinary Catheter Time of Insertion: 19:02 Data : 02/19/20 03:10 02/19/20 03:10 Micro: Microbiology 02/18/20 09:43 Blood Culture - Preliminary Blood SPECIMEN COLLECTED 02/16/20 18:57 Urine Culture - Preliminary Urine,Clean Catch 02/18/20 09:40 Blood Culture - Preliminary Blood SPECIMEN COLLECTED A&P Assessment and plan (1) Rhabdomyolysis: Status: Acute (2) Troponin level elevated: Status: Deleted (3) Altered mental status: Status: Acute (4) Atrial fibrillation: Status: Acute (5) Hypertension: Status: Acute Qualifiers: Hypertension type: essential hypertension Qualified Code(s): I10 - Essential (primary) hypertension (6) Diabetes: Status: Acute (7) Hypothyroidism: Status: Acute Additional A&P Information 1. Rhabdomylosis - The patient's CK levels have improved significantly. Her urine output has only been 300 mL's over the last 12 hours. We will increase IV fluids to 150 mL/h for the next 4 hours, then decrease back to 100 mL/h and encourage oral intake. 2. Elevated Troponin - The first troponin was over 300 and the overall trend is downwards. Last month it was 8. She has a history of a 60% blockage in the LAD in 10/2018 that was not stented. I spoke with Dr. Hollins who agreed to follow along with the patient. The patient is doing much better and may be a candidate for angiogram. I will leave this decision up to Dr. Hollins. She is certainly at a point where she can make her own decisions again. 3. New onset A fib. -The patient does not have signs of atrial fibrillation today. She is in a regular rate and rhythm. EKG in the ER showed a lot of artifact that could have looked like A. fib. 4. Altered Mental Status - The underlying cause for this was likely secondary to elevation of his CK levels. The patient is doing significantly better. After patricia burleson review with her I do not find any other signs of infection or injury currently. 5. Hypertension -the patient's blood pressures have been very well controlled. She did have one elevation this morning. We will give her morning meds and see how she does with these. 6. Hypomagnesemia - Replaced via IV 7. DM2 - Insulin sliding scale 8. Hypothyroidism -thyroid levels okay. Continue with levothyroxine. 9. Hypophosphatemia -replaced via IV. 10. Duodenitis -we will continue with Protonix for treatment of presumed duodenitis. 11. Elevated transaminases -I believe that this is likely secondary to the above. Transaminases are gradually improving. 12. Prophylaxis - Heparin for now until we know that no interventions are needed. Attestations Medical Necessity Statement*: The patient is continuing to need inpatient care and we will plan for possible angiogram. If this will be delayed, we may c onsider moving her from the ICU later today. Coding Level of Care Code Acute [employer] Workers for [employer]g Fwd Diagnoses Rhabdomyolysis M62.82 Troponin level elevated R79.89 Altered mental status R41.82 Atrial fibrillation I48.91 Hypertension I10 Hypertension type: essential hypertension Diabetes E11.9 Hypothyroidism E03.9
--- NOTE | 2020-02-19 06:33 | PC.NURSE ---
Dr Matute at bedside, updated on urine output overnight. Orders received to increase NS to 150 ml/hour for 4 hours, then return rate to 100 ml/hour.
[2020-02-19] MEDS: sodium chloride 0.9% 1,000 ML 150 ML IV (06:35)
--- NOTE | 2020-02-19 09:15 | PC.SOCIAL ---
Pg 2 IMM Explained to pt Pg 2 IMM. No questions voiced. Provided pt a copy & left on pt's bedside table. Signed, dated, & timed a copy & placed in pt's chart.
[2020-02-19] MEDS: amlodipine 5 mg Tablet PO (10:40)
[2020-02-19] MEDS: atenolol 50 mg Tablet 75 MG PO (10:40)
[2020-02-19] MEDS: aspirin 81 mg EC Tablet PO (10:40)
[2020-02-19] MEDS: duloxetine 60 mg Capsule PO (10:41)
[2020-02-19] MEDS: gabapentin 300 mg Capsule 600 MG PO ×3 (10:41→20:29)
[2020-02-19] MEDS: losartan 50 mg Tablet 25 MG PO ×2 (10:41→17:28)
[2020-02-19] MEDS: pantoprazole DR 40 mg Tablet PO ×2 (10:43→17:28)
--- NOTE | 2020-02-19 11:45 | PM.PN ---
Subjective Subjective: Interval history: Patient is feeling much better she appeared to be oriented in time and space. Vitals/I&O/Wt Last Vital Signs Temp 98 F 02/19/20 06:00 Pulse 78 02/19/20 10:00 Resp 16 02/19/20 10:00 BP 158/78 02/19/20 10:41 Pulse Ox 97 02/19/20 10:00 02/18/20 02/19/20 02/19/20 22:59 06:59 14:59 Intake Total 1375.446 / 2169.200 1204.420 / 3373.620 Output Total 225 / 225 225 / 450 150 / 150 Balance 1150.446 / 1944.200 979.420 / 2923.620 -150 / -150 Weight last 48 hrs Weight 209 lb 11.2 oz Weight 199 lb 9.6 oz Weight 199 lb 9.6 oz Physical Exam Narrative: EXAM NARRATIVE: GENERAL: Patient well oriented to time and space. Appear to be slightly emotional NECK: No jugular vein distension. HEENT: No cyanosis. No icterus. No pallor. HEART: Regular S1 and S2. No murmur, rub or gallop. LUNGS: Clear to auscultate bilaterally. ABDOMEN: Soft, nontender and nondistended. Positive bowel sounds. CENTRAL NERVOUS SYSTEM: Disoriented cannot assess fully EXTREMITIES: Lower extremities without edema bilaterally. Urinary Catheter Management^: Valencia: Cath Placed During This Visit: yes Reason for Continuing Indwelling Catheter: Accurate Measurement of Urinary Output in Critically Ill Patients Urinary Catheter Date of Insertion: 02/16/20 Urinary Catheter Time of Insertion: 19:02 Data : 02/19/20 03:10 02/19/20 03:10 Micro: Microbiology 02/18/20 09:40 Blood Culture - Preliminary Blood NEGATIVE TO DATE 02/18/20 09:43 Blood Culture - Preliminary Blood SPECIMEN COLLECTED 02/16/20 18:57 Urine Culture - Preliminary Urine,Clean Catch A&P Assessment and plan (1) Altered mental status: Improved. Status: Acute Qualifiers: Altered mental status type: unspecified Qualified Code(s): R41.82 - Altered mental status, unspecified (2) Congestive heart failure: Well compensated. Continue medicine Status: Acute Qualifiers: Heart failure type: unspecified Heart failure chronicity: chronic Qualified Code(s): I50.9 - Heart failure, unspecified (3) Hypertension: Improved and controlled Status: Acute Qualifiers: Hypertension type: essential hypertension Qualified Code(s): I10 - Essential (primary) hypertension (4) Acute renal failure (ARF): Normalized with Status: Acute Qualifiers: Acute renal failure type: unspecified Qualified Code(s): N17.9 - Acute kidney failure, unspecified (5) Non-ST elevation PR (NSTEMI): Cardiac markers are elevated in the range of non-ST elevation PR. Could be demand ischemia, sepsis myocarditis is the option however would like to rule out obstructive coronary artery disease once creatinine is normal for now we will anticoagulate her Patient will be requiring left heart cath for further exploration. We will proceed with left heart cath tomorrow in the afternoon. She will be n.p.o. 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
[2020-02-19 16:47] LABS: Glucose Point of Care 159 mg/dL (70-110)
[2020-02-19 16:47] LABS: Glucose Point of Care 104 mg/dL (70-110)
[2020-02-19 16:47] LABS: Glucose Point of Care 121 mg/dL (70-110)
--- NOTE | 2020-02-19 19:56 | PC.NURSE ---
1903: Dr Matute updated on current BP. Orders received to resume home ropinirole and nortriptyline. Orders received for hydralazine 10 mg IVP q4h PRN for SBP >170. 1944: Patient transferred to [facility]. Placed in bed and bed alarm turned on by this RN. ROGELIO Cabezas to assume care. Receiving RN updated on new orders from Dr Matute. Patient to be placed on
[2020-02-19] MEDS: nortriptyline 25 mg Capsule 50 MG PO (20:29)
[2020-02-19] MEDS: ropinirole 0.25 mg Tablet 0.5 MG PO (20:29)
[2020-02-19 20:36] LABS: Glucose Point of Care 125 mg/dL (70-110)
[2020-02-19] MEDS: hyDRALAzine 20 mg/mL INJ 1 mL 10 MG IVP (22:45)
[2020-02-20] VITALS (10 sets, daily range): BP systolic 122–175; BP diastolic 75–94; PULSE 55–76; RESP 16–19; TEMP 36.5–37.1; O2SAT 89–97
[2020-02-20] MEDS: sodium chloride 0.9% 1,000 ML 150 ML IV (03:19)
[2020-02-20] MEDS: morphine 4 mg/mL SDV 1 mL IVP (03:42)
[2020-02-20 05:21] LABS: Basophils % 0.5 %; Eosinophils # 0.3 10^3/uL (0.0-0.8); Eosinophils % 4.6 %; Hematocrit 43.4 % (37.0-47.0); Hemoglobin 13.8 g/dL (11.5-15.3); Lymphocytes # 1.9 10^3/uL (0.8-4.8); Mean Corpuscular HGB Conc 31.8 g/dL (30.0-36.0); Mean Corpuscular Hemoglobin 28.6 pg (28.0-34.0); Mean Corpuscular Volume 89.9 fL (81-99); Mean Platelet Volume 11.1 fL (7.4-10.4); Monocytes # 0.4 10^3/uL (0.2-0.9); Monocytes % 6.8 %; Neutrophils # 3.6 10^3/uL (1.8-7.7); Neutrophils % 56.8 %; Nucleated Red Blood Cells % 0 %; Platelet Count 144 10^3/cmm (130-400); Red Blood Count 4.83 10^6/uL (4.1-5.3); Red Cell Distribution Width 13.3 % (12.1-15.1); White Blood Count 6.4 10^3/uL (4.0-10.0)
[2020-02-20 05:53] LABS: Alanine Aminotransferase 325 U/L (0-33); Albumin Level 3.9 g/dL (3.5-5.2); Alkaline Phosphatase 115 IU/L (35-105); Anion Gap 14.5 (5-19); Aspartate Amino Transferase 108 U/L (0-32); Blood Urea Nitrogen 10 mg/dL (8-23); Calcium 8.4 mg/dL (8.5-10.5); Carbon Dioxide 27 mmol/L (22-29); Chloride 109 mmol/L (98-107); Globulin 2.4 g/dL (1.3-4.6); Glucose 130 mg/dL (65-115); Magnesium 1.8 mg/dL (1.7-2.3); NT Pro B Type Natriuretic Pept 2776 pg/mL (0-125); Osmolality Calculated 302 mOsm/kg (285-295); Phosphorus 2.3 mg/dL (2.5-4.5); Potassium 3.5 mmol/L (3.5-5.1); Sodium 147 mmol/L (136-145); Total Bilirubin 0.8 mg/dL (0.15-1.2); Total Protein 6.3 g/dL (6.6-8.7)
[2020-02-20 06:03] LABS: Glucose Point of Care 108 mg/dL (70-110)
[2020-02-20] MEDS: isosorbide mononitrate ER 30 mg Tablet PO (06:17)
[2020-02-20] MEDS: heparin 5,000 unit/mL INJ 1 mL 5000 UNIT SUBCUT ×3 (06:18→22:03)
[2020-02-20] MEDS: levothyroxine 112 mcg Tablet PO (06:18)
[2020-02-20] MEDS: duloxetine 60 mg Capsule PO (10:37)
[2020-02-20] MEDS: aspirin 81 mg EC Tablet PO (10:37)
[2020-02-20] MEDS: amlodipine 5 mg Tablet PO ×2 (10:37→17:13)
[2020-02-20] MEDS: gabapentin 300 mg Capsule 600 MG PO ×3 (10:37→20:31)
[2020-02-20] MEDS: losartan 50 mg Tablet 25 MG PO (10:38)
[2020-02-20] MEDS: pantoprazole DR 40 mg Tablet PO ×2 (10:38→17:13)
[2020-02-20] MEDS: atenolol 50 mg Tablet 75 MG PO (10:38)
[2020-02-20] MEDS: sodium chloride 0.9% 1,000 ML 100 ML IV (10:46)
[2020-02-20 11:19] LABS: Glucose Point of Care 209 mg/dL (70-110)
--- NOTE | 2020-02-20 11:33 | P.PN_ITS ---
Subjective Subjective: Interval history: The patient is more awake and alert today. The patient denies any pains. She denies any dyspnea or cough. The patient denies any abdominal pain. Overall she is feeling better. She still has little recollection of what happened that brought her here. Vitals/I&O/Wt Last Vital Signs Temp 97.7 F 02/20/20 11:32 Pulse 62 02/20/20 11:32 Resp 18 02/20/20 11:32 BP 173/83 02/20/20 11:32 Pulse Ox 94 02/20/20 11:32 02/19/20 02/20/20 02/20/20 22:59 06:59 14:59 Intake Total 360 / 1600 5 / 1605 1101.667 / 1101.667 Output Total 1550 / 2650 5950 / 8600 Balance -1190 / -1050 -5945 / -6995 1101.667 / 1101.667 Weight last 48 hrs Weight 204 lb 8 oz Weight 209 lb 11.2 oz Physical Exam Narrative: EXAM NARRATIVE: General: Awake, alert, oriented x3, answering questions appropriately. Back to baseline. Mouth: Mucous membranes are moist. Cardiac: Regular rate and rhythm without murmurs. Lungs: Clear to auscultation bilaterally without wheezes, crackles or rhonchi Abdomen: Soft, nontender, no hepatosplenomegaly noted Extremities: No edema Neurologic: No noted weakness in the bilateral upper and lower extremities. ROBERT CHRISTINE Urinary Catheter Management^: [place]: Cath Placed During This Visit: yes Reason for Continuing Indwelling Catheter: Accurate Measurement of Urinary Output in Critically Ill Patients Urinary Catheter Date of Insertion: 02/16/20 Urinary Catheter Time of Insertion: 19:02 Data : 02/20/20 04:53 02/20/20 04:53 Micro: Microbiology 02/16/20 18:57 Urine Culture - Final Urine,Clean Catch 02/18/20 09:43 Blood Culture - Preliminary Blood NEGATIVE TO DATE 02/18/20 09:40 Blood Culture - Preliminary Blood NEGATIVE TO DATE A&P Assessment and plan (1) Rhabdomyolysis: Status: Acute (2) Troponin level elevated: Status: Deleted (3) Altered mental status: Status: Acute (4) Atrial fibrillation: Status: Acute (5) Hypertension: Status: Acute Qualifiers: Hypertension type: essential hypertension Qualified Code(s): I10 - Essential (primary) hypertension (6) Diabetes: Status: Acute (7) Hypothyroidism: Status: Acute Additional A&P Information 1. Rhabdomylosis - The patient's CK levels have improved significantly. Her urine output has significantly improved and she had 6 L out over the last 24 hours. We will stop IV fluids at this time. 2. Elevated Troponin - The first troponin was over 300 and the overall trend is downwards. Last month it was 8. She has a history of a 60% blockage in the LAD in 10/2018 that was not stented. I spoke with Dr. Hollins who agreed to follow along with the patient. The patient is doing much better and will have an angiogram this afternoon. I will leave this decision up to Dr. Hollins. She is certainly at a point where she can make her own decisions again. 3. New onset A fib. -The patient does not have signs of atrial fibrillation today. She is in a regular rate and rhythm. EKG in the ER showed a lot of artifact that could have looked like A. fib. 4. Altered Mental Status - The underlying cause for this was likely secondary to elevation of her CK levels. The patient is doing significantly better. After further review with her I do not find any other signs of infection or injury currently. The patient has spoken with her son and they have decided to move in together. I spoke with her about the possibility of considering assisted living or nursing facility if she is having further episodes or her son is not able to live with her. 5. Hypertension -the patient's blood pressures have been worsening again. The patient did have 6 L of urine output and still has elevated pressures. I will increase her amlodipine to 5 mg twice a day and follow. Home medications were restarted yesterday. 6. Hypomagnesemia - Replaced via IV 7. DM2 - Insulin sliding scale 8. Hypothyroidism -thyroid levels okay. Continue with levothyroxine. 9. Hypophosphatemia -replace via IV. 10. Duodenitis -we will continue with Protonix for treatment of presumed duodenitis. 11. Elevated transaminases -I believe that this is likely secondary to the above. Transaminases are gradually improving. 12. Prophylaxis - Heparin for now until we know that no interventions are needed. Attestations Medical Necessity Statement*: The patient continues need inpatient therapy and will get an angiogram this afternoon. If she is stable and doing well, she may be able to be discharged home tomorrow. Her living situation should be confirmed prior to discharge. Coding Level of Care Code Acute Supervisor Of Officials for Adrianag Gary Diagnoses Rhabdomyolysis M62.82 Troponin level elevated R79.89 Altered mental status R41.82 Atrial fibrillation I48.91 Hypertension I10 Hypertension type: essential hypertension Diabetes E11.9 Hypothyroidism E03.9
[2020-02-20 16:57] LABS: Glucose Point of Care 155 mg/dL (70-110)
[2020-02-20] MEDS: losartan 50 mg Tablet PO (17:13)
--- NOTE | 2020-02-20 18:15 | P.PN_ITS ---
Subjective Subjective: Interval history: Feeling much better and improved heart rate is stable. She continues to be in sinus rhythm Vitals/I&O/Wt Last Vital Signs Temp 98.3 F 02/20/20 16:00 Pulse 55 L 02/20/20 16:00 Resp 18 02/20/20 16:00 BP 122/77 02/20/20 16:00 Pulse Ox 97 02/20/20 16:00 02/20/20 02/20/20 02/20/20 06:59 14:59 22:59 Intake Total 5 / 1605 1361.667 / 1361.667 240 / 1601.667 Output Total 5950 / 8600 1800 / 1800 Balance -5945 / -6995 -438.333 / -438.333 240 / -198.333 Weight last 48 hrs Weight 204 lb 8 oz Weight 209 lb 11.2 oz Physical Exam Narrative: EXAM NARRATIVE: GENERAL: Patient well oriented to time and space. l NECK: No jugular vein distension. HEENT: No cyanosis. No icterus. No pallor. HEART: Regular S1 and S2. No murmur, rub or gallop. LUNGS: Clear to auscultate bilaterally. ABDOMEN: Soft, nontender and nondistended. Positive bowel sounds. CENTRAL NERVOUS SYSTEM: Disoriented cannot assess fully EXTREMITIES: Lower extremities without edema bilaterally. Urinary Catheter Management^: [place]: Cath Placed During This Visit: yes Reason for Continuing Indwelling Catheter: Accurate Measurement of Urinary Output in Critically Ill Patients Urinary Catheter Date of Insertion: 02/16/20 Urinary Catheter Time of Insertion: 19:02 Data : 02/20/20 04:53 02/20/20 04:53 Micro: Microbiology 02/16/20 18:57 Urine Culture - Final Urine,Clean Catch 02/18/20 09:43 Blood Culture - Preliminary Blood NEGATIVE TO DATE A&P Assessment and plan (1) Altered mental status: Improved. Status: Acute Qualifiers: Altered mental status type: unspecified Qualified Code(s): R41.82 - Altered mental status, unspecified (2) Congestive heart failure: Well compensated. Continue medicine Status: Acute Qualifiers: Heart failure type: unspecified Heart failure chronicity: chronic Qualified Code(s): I50.9 - Heart failure, unspecified (3) Hypertension: Not well controlled we will increase losartan to 50 mg twice a day Status: Acute Qualifiers: Hypertension type: essential hypertension Qualified Code(s): I10 - Essential (primary) hypertension (4) Acute renal failure (ARF): Normalized. Status: Acute Qualifiers: Acute renal failure type: unspecified Qualified Code(s): N17.9 - Acute kidney failure, unspecified (5) Non-ST elevation OR (NSTEMI): Most likely stress-induced demand ischemia since echocardiogram showed normal ejection fraction no wall motion abnormality. Patient had angiogram in October 2018 I reviewed it did not show any significant stenosis therefore it is highly unlikely that patient may have developed stenosis by now. Telemetry did not show any arrhythmia. Most likely cause of unconsciousness was not cardiac. Recommend continuing beta-gonzalo and aspirin. Follow-up with cardiology as an outpatient. Status: Acute (6) Rhabdomyolysis: Improved Status: Acute (7) Tachycardia: Well-controlled Status: Acute Attestations Medical Necessity Statement*: Patient require continuation hospitalization for hypertension control Coding Level of Care Code Established Pt Acute Blood Bank Specialist for Chg Fwd Patient Type Established History Expanded Problem Focused Exam Expanded Problem Focused Medical Decision Making Moderate Complexity Diagnoses Altered mental status R41.82 Altered mental status type: unspecified Congestive heart failure I50.9 Heart failure type: unspecified Heart failure chronicity: chronic Hypertension I10 Hypertension type: essential hypertension Acute renal failure (ARF) N17.9 Acute renal failure type: unspecified Non-ST elevation OR (NSTEMI) I21.4 Rhabdomyolysis M62.82 Tachycardia R00.0
[2020-02-20] MEDS: atorvastatin 40 mg Tablet 20 MG PO (20:30)
[2020-02-20] MEDS: nortriptyline 25 mg Capsule 50 MG PO (20:35)
[2020-02-20] MEDS: ropinirole 0.25 mg Tablet 0.5 MG PO (20:35)
[2020-02-20 21:46] LABS: Glucose Point of Care 174 mg/dL (70-110)
[2020-02-21] VITALS (8 sets, daily range): BP systolic 118–192; BP diastolic 51–88; PULSE 54–70; RESP 17–20; TEMP 36.7–36.8; O2SAT 94–98
[2020-02-21 00:55] LABS: Glucose Point of Care 113 mg/dL (70-110)
[2020-02-21] MEDS: hyDRALAzine 20 mg/mL INJ 1 mL 10 MG IVP (00:57)
[2020-02-21 05:57] LABS: Basophils % 0.5 %; Eosinophils # 0.4 10^3/uL (0.0-0.8); Eosinophils % 5.6 %; Hematocrit 43.5 % (37.0-47.0); Hemoglobin 13.8 g/dL (11.5-15.3); Lymphocytes # 1.8 10^3/uL (0.8-4.8); Lymphocytes % 28.8 %; Mean Corpuscular HGB Conc 31.7 g/dL (30.0-36.0); Mean Corpuscular Hemoglobin 27.9 pg (28.0-34.0); Mean Corpuscular Volume 87.9 fL (81-99); Mean Platelet Volume 11.3 fL (7.4-10.4); Monocytes # 0.5 10^3/uL (0.2-0.9); Monocytes % 7.2 %; Neutrophils # 3.7 10^3/uL (1.8-7.7); Neutrophils % 57.3 %; Nucleated Red Blood Cells % 0 %; Platelet Count 164 10^3/cmm (130-400); Red Blood Count 4.95 10^6/uL (4.1-5.3); Red Cell Distribution Width 13.2 % (12.1-15.1); White Blood Count 6.4 10^3/uL (4.0-10.0)
[2020-02-21] MEDS: isosorbide mononitrate ER 30 mg Tablet PO (06:10)
[2020-02-21] MEDS: heparin 5,000 unit/mL INJ 1 mL 5000 UNIT SUBCUT (06:10)
[2020-02-21] MEDS: levothyroxine 112 mcg Tablet PO (06:10)
[2020-02-21 06:26] LABS: Alanine Aminotransferase 229 U/L (0-33); Albumin Level 3.6 g/dL (3.5-5.2); Alkaline Phosphatase 113 IU/L (35-105); Anion Gap 15.3 (5-19); Aspartate Amino Transferase 56 U/L (0-32); Blood Urea Nitrogen 11 mg/dL (8-23); Calcium 9.4 mg/dL (8.5-10.5); Carbon Dioxide 27 mmol/L (22-29); Chloride 106 mmol/L (98-107); Globulin 2.9 g/dL (1.3-4.6); Glucose 156 mg/dL (65-115); Magnesium 1.7 mg/dL (1.7-2.3); NT Pro B Type Natriuretic Pept 1654 pg/mL (0-125); Osmolality Calculated 299 mOsm/kg (285-295); Phosphorus 2.8 mg/dL (2.5-4.5); Potassium 3.3 mmol/L (3.5-5.1); Sodium 145 mmol/L (136-145); Total Bilirubin 0.7 mg/dL (0.15-1.2); Total Protein 6.5 g/dL (6.6-8.7)
[2020-02-21 06:50] LABS: Glucose Point of Care 133 mg/dL (70-110)
[2020-02-21] MEDS: aspirin 81 mg EC Tablet PO (08:59)
[2020-02-21] MEDS: amlodipine 5 mg Tablet PO (09:00)
[2020-02-21] MEDS: duloxetine 60 mg Capsule PO (09:00)
[2020-02-21] MEDS: pantoprazole DR 40 mg Tablet PO (09:00)
[2020-02-21] MEDS: losartan 50 mg Tablet PO (09:00)
[2020-02-21] MEDS: gabapentin 300 mg Capsule 600 MG PO ×2 (09:00→14:52)
[2020-02-21] MEDS: atenolol 50 mg Tablet 75 MG PO (09:01)
[2020-02-21 11:02] LABS: Hepatitis A Antibody IgM Non-Reactive (Nonreactive); Hepatitis B Core IgM Non-Reactive (Nonreactive); Hepatitis B Surface Antigen Non-Reactive (Nonreactive); Hepatitis C Virus Antibody Non-Reactive (Nonreactive)
[2020-02-21 11:25] LABS: Glucose Point of Care 245 mg/dL (70-110)
--- NOTE | 2020-02-21 11:33 | PC.NURSE ---
Doctor David rounded on patient and orders for physical therapy and discontinue aldrich catheter now was verbalized. This nurse removed aldrich catheter with no complications and patient tolerated well. Balloon intact. Drainage of 1000 of clear pale yellow urine observed. Patient came out of her room and was ambulating pushing a IV pole and without oxygen. Patient's oxygen sat was 93% on room air after ambulation. This nurse assisted and patient ambulated without the aid of the IV pole fine. No complaints of shortness of breath or chest tightness. Patient did say she would go ahead and wait in her room for lunch. Ambulated approximately 250ft.
--- NOTE | 2020-02-21 12:06 | PC.SOCIAL ---
IMM Updated Updated pt on Pg 2 IMM. Pt verbally understands. No questions voiced. Provided pt a copy & left on pt's bedside table. Signed, dated, & timed the copy in pt's chart.
--- NOTE | 2020-02-21 12:43 | PM.DCS ---
Discharge Providers Date of Admission: 02/16/20 19:15 Date of Discharge: February 21, 2020 Attending Provider at Admission: Serjio Matute MD Attending Provider at Discharge: Jonah Hernandez MD Primary Care Provider: Serjio Matute MD Diagnoses at Discharge Discharge Diagnosis (1) Altered mental status: Status: Acute Problem details: Resolved. Etiology uncertain. Qualifiers: Altered mental status type: unspecified Qualified Code(s): R41.82 - Altered mental status, unspecified (2) Congestive heart failure: Status: Acute Problem details: Compensated Qualifiers: Heart failure type: unspecified Heart failure chronicity: chronic Qualified Code(s): I50.9 - Heart failure, unspecified (3) Hypertension: Status: Acute Problem details: Improved control Qualifiers: Hypertension type: essential hypertension Qualified Code(s): I10 - Essential (primary) hypertension (4) Acute renal failure (ARF): Status: Acute Problem details: Resolved Qualifiers: Acute renal failure type: unspecified Qualified Code(s): N17.9 - Acute kidney failure, unspecified (5) Non-ST elevation [place] (NSTEMI): Status: Acute Problem details: No angiogram needed per cardiology. Medication adjusted. (6) Rhabdomyolysis: Status: Acute Problem details: Resolved (7) Tachycardia: Status: Acute Problem details: Resolved Reason for Visit Reason for Visit: Reason For Visit: FOUND UNRESPONSIVE Hospital Course Hospital Course: Eunice is a 69-year-old white female who was found at home unresponsive. In the ER she was quite combative, and was found to have acute kidney injury, rhabdomyolysis. She was placed in the ICU, and she needed some Precedex for some time. Cardiology was consulted for elevated troponin. Rhythm appeared to be sinus tachycardia while in the hospital. Multiple factors could have led to her unresponsiveness but no definitive etiology was found. Abdominal pelvis CT was done and there was some concern of duodenitis. Echocardiogram demonstrated preserved EF, 1/4 diastolic dysfunction, normal right ventricle size and function. CT head demonstrated no acute changes. Rhabdomyolysis resolved. Mental status gradually returned to baseline. At discharge she was able to ambulate without difficulty. I reviewed her medicine list and discontinued oxycodone which she had not needed in the hospital. This could have contributed to an unresponsive event. Glipizide was also discontinued in case hypoglycemia had occurred. Robaxin was discontinued. As an outpatient consideration of reducing dose of nortriptyline could occur. Neurontin dosing could also be decreased on follow-up if needed. At discharge he was alert and oriented x3. Home health and home physical therapy will be ordered as well. Physical Exam Narrative: EXAM NARRATIVE: General exam is no apparent distress Cardiovascular regular rate and rhythm without murmur Lungs clear Abdomen is soft positive bowel sounds Extremities no cyanosis clubbing or edema Neuro no obvious focal deficits Urinary Catheter Management^: [place]: Cath Placed During This Visit: yes, but has since been removed by the nurse Reason for Continuing Indwelling Catheter: Decision to DC Catheter Urinary Catheter Date of Insertion: 02/16/20 Urinary Catheter Time of Insertion: 19:02 Date Urinary Catheter Removed: 02/21/20 Time Urinary Catheter Discontinued: 11:44 Discharge Data Data Completed and Pending: Completed Studies During Hospitalization Category Date Time Status CT abdomen pelvis w con* [id number] Urge nt Cat Scan 02/16/20 15:[address] head wo con* [id number] Urgent Cat Scan 02/16/20 15:32 Completed XR chest 1V josé miguel ble [id number] Stat Exams 02/16/20 15:32 Completed CV echo complete* [id number] Routine Ultrasound 02/17/20 11:45 Completed Pending at discharge Category Date Time Status Arterial Blood Ga s Full Routine Lab 02/16/20 15:32 Ordered Blood Culture Sta t Lab 02/18/20 09:43 Results Labs from last 24 hours 02/21/20 02/21/20 02/21/20 11:05 06:40 05:08 WBC RBC Hgb Hct MCV MCH MCHC RDW Plt Count MPV Neut % (Auto) Lymph % (Auto) [place] % (Auto) Eos % (Auto) Baso % (Auto) Neut # (Auto) Lymph # (Auto) [place] # (Auto) Eos # (Auto) Baso # (Auto) Nucleated RBC % (a uto) Nucleated RBCs # Sodium Potassium Chloride Carbon Dioxide Anion Gap BUN Creatinine Glucose POC Glucose 245 133 Calculated Osmolal ity Calcium Phosphorus Magnesium Total Bilirubin AST ALT Alkaline Phosphata se C-React Prot High Sens NT-Pro-B Natriuret Pep Total Protein Albumin Globulin Hepatitis A IgM Ab Non-reactive Hep Bs Antigen Non-reactive Hep B Core IgM Ab Non-reactive Hepatitis C Antibo dy Non-reactive 02/21/20 02/21/20 02/21/20 05:08 05:08 00:52 WBC 6.4 RBC 4.95 Hgb 13.8 Hct 43.5 MCV 87.9 MCH 27.9 L MCHC 31.7 RDW 13.2 Plt Count 164 MPV 11.3 H Neut % (Auto) 57.3 Lymph % (Auto) 28.8 [place] % (Auto) 7.2 Eos % (Auto) 5.6 Baso % (Auto) 0.5 Neut # (Auto) 3.7 Lymph # (Auto) 1.8 [place] # (Auto) 0.5 Eos # (Auto) 0.4 Baso # (Auto) 0.0 Nucleated RBC % (a uto) 0 Nucleated RBCs # 0.0 Sodium 145 Potassium 3.3 L Chloride 106 Carbon Dioxide 27 Anion Gap 15.3 BUN 11 Creatinine 0.7 Glucose 156 H POC Glucose 113 Calculated Osmolal ity 299 H Calcium 9.4 Phosphorus 2.8 Magnesium 1.7 Total Bilirubin 0.7 AST 56 H ALT 229 H Alkaline Phosphata se 113 H C-React Prot High Sens 0.670 H NT-Pro-B Natriuret Pep 1654 H Total Protein 6.5 L Albumin 3.6 Globulin 2.9 Hepatitis A IgM Ab Hep Bs Antigen Hep B Core IgM Ab Hepatitis C Antibo dy 02/20/20 02/20/20 21:07 16:33 WBC RBC Hgb Hct MCV MCH MCHC RDW Plt Count MPV Neut % (Auto) Lymph % (Auto) [place] % (Auto) Eos % (Auto) Baso % (Auto) Neut # (Auto) Lymph # (Auto) [place] # (Auto) Eos # (Auto) Baso # (Auto) Nucleated RBC % (a uto) Nucleated RBCs # Sodium Potassium Chloride Carbon Dioxide Anion Gap BUN Creatinine Glucose POC Glucose 174 155 Calculated Osmolal ity Calcium Phosphorus Magnesium Total Bilirubin AST ALT Alkaline Phosphata se C-React Prot High Sens NT-Pro-B Natriuret Pep Total Protein Albumin Globulin Hepatitis A IgM Ab Hep Bs Antigen Hep B Core IgM Ab Hepatitis C Antibo dy Vitals: Last Vital Signs Temp 98.2 F 02/21/20 11:26 Pulse 66 02/21/20 11:26 Resp 18 02/21/20 11:26 BP 161/74 02/21/20 11:26 Pulse Ox 98 02/21/20 11:26 Discharge Plan Discharge Patient Disposition: Home Health Service Condition: Stable Prescriptions: New pantoprazole 40 mg Tablet,Delayed Release (Dr/Ec) 40 mg PO BID Qty: 60 RF: 0 Continued B Complex Plus Vitamin C [id number] mg capsule 1 cap PO DAILY RF: 0 ropinirole 0.5 mg tablet 0.5 mg PO BEDTIME RF: 0 metformin 850 mg tablet 850 mg PO BID RF: 0 valsartan 80 mg tablet 80 mg PO BID RF: 0 isosorbide mononitrate 30 mg tablet extended release 24 hr 30 mg PO QAM RF: 0 atorvastatin 10 mg tablet 10 mg PO BEDTIME RF: 0 Zyrtec 10 mg capsule 10 mg PO DAILY RF: 0 Lactobacillus acidophilus [Acidophilus] Capsule 10 mg PO QDAY RF: 0 duloxetine [Cymbalta] 60 mg capsule,delayed release(DR/EC) 60 mg PO DAILY RF: 0 aspirin [Adult Aspirin Regimen] 81 mg tablet,delayed release (DR/EC) 81 mg PO QDAY RF: 0 lutein-zeaxanthin [Ocuvite Blue Light] 25-5 mg capsule 1 cap PO DAILY RF: 0 coenzyme [id number] 100-100 mg-unit capsule 1 cap PO DAILY RF: 0 gabapentin 600 mg tablet 600 mg PO TID 30 Days Qty: 90 RF: 1 levothyroxine 112 mcg Tablet 112 mcg PO 0600 RF: 0 nortriptyline 50 mg capsule 50 mg PO BEDTIME RF: 0 atenolol 50 mg Tablet 75 mg PO DAILY Qty: 45 RF: 0 potassium chloride [Klor-Con M10] 10 mEq tablet,ER particles/crystals 10 meq PO DAILY Qty: 30 RF: 0 Changed amlodipine 5 mg tablet 5 mg PO BID Qty: 60 RF: 0 Discontinued glipizide 5 mg tablet 2.5 mg PO DAILY RF: 0 oxycodone 15 mg tablet 15 mg PO QID PRN (Reason: pain) 30 Days Qty: 120 RF: 0 methocarbamol 500 mg tablet 500 mg PO TID 30 Days Qty: 90 RF: 1 furosemide 40 mg tablet 40 mg PO DAILY PRN (Reason: Edema) RF: 0 Referrals: Mehdi Hollins MD [Physician] - 2 weeks Serjio Matute MD [Primary Care Provider] - 4-7 days Discharge Diet: Diabetic Discharge Activity: Increase activity as tolerated Discharge Attestations Time Spent in Discharge Care*: greater than 30 min Quality Metrics Clinical Quality Measures During this hospital stay, did patient experience: None Coding Level of Care Code Acute Extruding Press Adjuster for Adrianag Fwd Diagnoses Altered mental status R41.82 Altered mental status type: unspecified Congestive heart failure I50.9 Heart failure type: unspecified Heart failure chronicity: chronic Hypertension I10 Hypertension type: essential hypertension Acute renal failure (ARF) N17.9 Acute renal failure type: unspecified Non-ST elevation [place] (NSTEMI) I21.4 Rhabdomyolysis M62.82 Tachycardia R00.0
[2020-02-21 16:38] LABS: Glucose Point of Care 107 mg/dL (70-110)
== END 2020-02-21 17:00 | disposition home health service (06) | DRG 281 ==
LOC: ER 15:47 → ICU 19:57 → MEDSURG 02-19 19:42
PROVIDERS: Admitting Provider Family Medicine; Emergency Provider Emergency Medicine; PCP Family Medicine; Visit Provider Internal Medicine
DX: I21.A1 Myocardial infarction type 2 (principal); I50.32 Chronic diastolic (congestive) heart failure; M62.82 Rhabdomyolysis; N17.9 Acute kidney failure, unspecified; I11.0 Hypertensive heart disease with heart failure; I25.10 Atherosclerotic heart disease of native coronary artery without angina pectoris; E78.5 Hyperlipidemia, unspecified; E03.9 Hypothyroidism, unspecified; M50.30 Other cervical disc degeneration, unspecified cervical region; M47.896 Other spondylosis, lumbar region; Z87.442 Personal history of urinary calculi; M17.12 Unilateral primary osteoarthritis, left knee; G25.81 Restless legs syndrome; Z98.1 Arthrodesis status; Z96.651 Presence of right artificial knee joint; R41.82 Altered mental status, unspecified; I48.91 Unspecified atrial fibrillation; E83.42 Hypomagnesemia; Z79.82 Long term (current) use of aspirin; Z79.84 Long term (current) use of oral hypoglycemic drugs; R00.0 Tachycardia, unspecified; E11.9 Type 2 diabetes mellitus without complications; F41.8 Other specified anxiety disorders
CPT/HCPCS: 12345; 36415; 36416; 51702; 70450; 71045; 74177; 80053; 80074; 80156; 80164; 80178; 80185; 80306; 80307; 81001; 82140; 82550; 82553; 82962; 83605; 83690; 83735; 83880; 84100; 84439; 84443; 84484; 85025; 85610; 86141; 87040; 87086; 87493; 93005; 93306; 96372; 96375; 97161; 99284; J0360; J1630; J1644; J1815; J2060; J2270; J3475; J3480; J3490; J7030; Q9967

== ENCOUNTER → 2020-03-24 07:40 | Outpatient (BNVA) | payer MEDICARE, SELFPAY | PROVIDERS: PCP Family Medicine; Visit Provider Nurse Practitioner | DX: F33.1 Major depressive disorder, recurrent, moderate (principal); F51.01 Primary insomnia; F17.210 Nicotine dependence, cigarettes, uncomplicated | CPT/HCPCS: 99214 ==

== ENCOUNTER 2020-03-31 11:29 | Outpatient (CLI) | payer MEDICARE, SELFPAY ==
[2020-03-31] MEDS: iohexol 300 mg/mL 50 mL Btl VAGINAL (12:49)
--- NOTE | 2020-03-31 13:00 | CT_ITS ---
WS: [id number] CT ABDOMEN AND PELVIS WITH CONTRAST HISTORY: duodenitis TECHNIQUE: Imaging performed of the abdomen and pelvis with IV contrast. Single phase imaging of the abdomen. Coronal and sagittal reformats are submitted. All CT scans at [facility] use at least one of these dose optimization techniques: automated exposure control; mA and/or kV adjustment per patient size (includes targeted exams where dose is matched to clinical indication); or iterativ e reconstruction. IV CONTRAST: Omnipaque 300; 95 mL IV. Oral contrast: Yes. DLP: 1521.39 mGy.cm COMPARISON: 02/16/2020 Lower thorax: Mild dependent changes at the lung bases. Small pericardial effusion. Chambers are norm al size. Small hiatal hernia. Liver/biliary system: Normal size with no intrahepatic dilatation. Gallbladder: Normal. No gallstones or wall thickening. No pericholecystic fluid. Pancreas: Normal. Spleen: Normal. Adrenal glands: Normal. Right kidney: Normal. Left kidney: Normal. Aorta: Mild atherosclerosis aorta. No aneurysm. Lymphadenopathy: None. Free fluid: None. GI tract: Previously described duodenitis has significantly improved. There is extensive constipation and retained fecal material throughout the colon. The appendix is identified. There is significant w all thickening involving the distal descending and sigmoid colon with adjacent diverticula. No acute inflammation. There is also mild thickening of the mucosa within the hepatic flexure and transverse c olon. No discrete mass. Abdominal wall: Unremarkable abdominal wall. No hernia. Pelvis: No free fluid. Uterus is midline. Negative urinary bladder. Small LEFT ovarian cyst. Bones: Increase in lumbar lordosis. RIGHT unilateral pars defect at L5.0 CT/CT abdomen pelvis w con* [id number] IMPRESSION: 1. Resolution of the recently described duodenitis. 2. Significant mucosal thickening involving the distal descending and sigmoid colon with adjacent diverticula. No evidence for acute diverticulitis. 3. There is additional mild mucosal thickening at the hepatic flexure and samayoa sverse colon without a focal discrete lesion. No obstruction.
[2020-03-31] MEDS: iohexol 300 mg/mL 50 mL Btl PO (13:18)
[2020-03-31] MEDS: iohexol 300 mg/mL 100 mL Btl IV (13:19)
== END 2020-03-31 11:30 | disposition home or self-care (01) ==
LOC: RAD 11:36
PROVIDERS: PCP Family Medicine; Visit Provider Surgery
DX: K29.80 Duodenitis without bleeding (principal)
CPT/HCPCS: 74177

== ENCOUNTER 2020-04-05 07:10 | Day surgery (SDC) | payer MEDICARE, SELFPAY ==
[2020-04-02 12:51] VITALS: BMI 35.4
[2020-04-05] MEDS: sodium chloride 0.9% 1,000 ML 30 ML IV (07:45)
[2020-04-05 07:47] VITALS: BP 169/73; PULSE 55; RESP 18; TEMP 36.6; O2SAT 94
[2020-04-05 07:48] LABS: Glucose Point of Care 153 mg/dL (70-110)
--- NOTE | 2020-04-05 07:49 | ANES.PREANE2 ---
Pre-Anesthetic Assessment Pre-Anesthetic Assessment: Height/Weight: Height 1.6 m Weight 90.718 kg Temp Pulse Resp BP Pulse Ox 97.8 F 55 L 18 169/73 94 04/05/20 07:47 04/05/20 07:47 04/05/20 07:47 04/05/20 07:47 04/05/20 07:47 Preop Diagnosis: Duodenitis Proposed Procedure: Operation Date: 04/05/20 08:45 Proposed Procedures p EGD 46525 K29.80(Not Applicable) - Rosalino Hitchcock MD Familial anesthetic complications: None Was Beta Genny taken within 24 hours: Yes Last intake: Intake Last Liquid Date 04/04/20 Last Liquid Time 21:00 Last Solid Date 04/04/20 Last Solid Time 19:00 Social: Social History: No alcohol and No tobacco Exam: Pre-Anes Outpt Exam: alert, oriented x 3, clear to auscultation bilaterally and regular rate & rhythm Airway: Cervical ROM: WNL (cervical fusion) MP: 4 Dentition: Full Additional comments: Small mouth, large neck circumference Pulmonary: Pulmonary: COPD (2 L NC at night (patient states she never smoked)) CV/HEM: CV/HEM: CHF (stage III) and HTN : : None reported Hepatic: Hepatic: None reported Metabolic: Metabolic: DM, Hyperlipidemia, Morbid obesity and Thyroid Musc/skel: Musc/skel: Lower Back Pain Anesthetic Plan: ASA status: 3 Anesthesia: MAC Risk of > 500 ml blood loss (7ml/kg in children): No Other Pertinent Information: Patient poor historian Meds/Allergies Current Medications: Current Medications Generic Name Dose Route Start Last Admin Trade Name Freq PRN Reason Stop Dose Admin Sodium Chloride 1,000 mls @ 30 ml s/hr 04/05/20 07:45 04/05/20 07:45 Sodium Chloride 0.9% IV 30 mls/hr .Q24H ANUPAM Administration PFSH Anesthesia PFSH: Medical History Anxiety and depression Cervical spine pain Congestive heart failure Compensated Coronary artery disease DDD (degenerative disc disease), cervical Diabetes mellitus type 2 in obese Diabetic neuropathy DJD (degenerative joint disease), lumbar Encounter for long-term use of opiate analgesic Facet syndrome, lumbar History of kidney stones History of urinary retention Lumbar radiculitis Major depressive disorder, recurrent, moderate Primary insomnia Primary osteoarthritis of left knee Renal calculi Restless leg Surgical History H/O lithotripsy S/P carpal tunnel release BILATERAL S/P cervical spinal fusion 04/26/2017-2000 S/P knee replacement RIGHT S/P PTCA (percutaneous transluminal coronary angioplasty) S/P tonsillectomy Family History Son Diabetes Other Osteoporosis Social History Smoking and tobacco status: never smoked Second hand smoke exposure: Yes (20 years off and on) Alcohol intake: never Marital status: Current occupational status: retired History of recent travel: No Data Anesthesia Other Labs: Laboratory Results - last 48 hr 04/05/20 07:45 POC Glucose 153 Cardiac Studies: No Data to Display
--- NOTE | 2020-04-05 08:16 | W.PM.OPSUD ---
Surgery/Procedure H&P Update DATE OF PROCEDURE: April 05, 2020 DATE H&P PERFORMED: 03/29/20 H&P UPDATE INFORMATION: I have reviewed H&P completed within last 30 days, I have examined patient prior to procedure and Changes to prior documentation as noted here (CT scan of the abdomen and pelvis showed resolution of the duodenitis he had demonstrated colitis on the left side of the colon yet the patient has no symptoms) PREOP DIAGNOSIS: Duodenitis PRIMARY INDICATION FOR PROCEDURE: The same PLANNED PROCEDURE: Operation Date: 04/05/20 08:45 Proposed Procedures p EGD 29424 K29.80(Not Applicable) - Rosalino Hitchcock MD
[2020-04-05 09:07] VITALS: BP 152/65; PULSE 65; RESP 16; TEMP 37.2; O2SAT 94
[2020-04-05 09:24] VITALS: BP 167/81; PULSE 61; RESP 18; O2SAT 97
[2020-04-06 06:52] LABS: H. Pylori / CLO Test Negative
== END 2020-04-05 09:39 | disposition home or self-care (01) ==
PROVIDERS: PCP Family Medicine; Visit Provider Surgery
PROC: 0DJ08ZZ Inspection of Upper Intestinal Tract, Via Natural or Artificial Opening Endoscopic (ICD-10-PCS; CPT 43235; principal; 2020-04-05 08:45)
DX: R10.9 Unspecified abdominal pain (principal); K21.9 Gastro-esophageal reflux disease without esophagitis; K29.70 Gastritis, unspecified, without bleeding; J44.9 Chronic obstructive pulmonary disease, unspecified; I11.0 Hypertensive heart disease with heart failure; I50.9 Heart failure, unspecified; E11.9 Type 2 diabetes mellitus without complications; E78.5 Hyperlipidemia, unspecified; E66.01 Morbid (severe) obesity due to excess calories; Z68.35 Body mass index [BMI] 35.0-35.9, adult; I25.10 Atherosclerotic heart disease of native coronary artery without angina pectoris; M19.90 Unspecified osteoarthritis, unspecified site
CPT/HCPCS: 12345; 36416; 43239; 82962; 87077; J2704; J7030

== ENCOUNTER → 2020-04-07 12:38 | Outpatient (BNVA) | payer MEDICARE, SELFPAY | PROVIDERS: PCP Family Medicine; Visit Provider Anesthesiology | DX: M54.41 Lumbago with sciatica, right side (principal); M47.816 Spondylosis without myelopathy or radiculopathy, lumbar region; M54.16 Radiculopathy, lumbar region; M50.30 Other cervical disc degeneration, unspecified cervical region; Z79.891 Long term (current) use of opiate analgesic | CPT/HCPCS: 99214 ==

== ENCOUNTER 2020-04-10 10:54 | Emergency (ER) | payer MEDICARE, SELFPAY ==
[2020-04-10 10:54] VITALS: BMI 34.3
[2020-04-10 10:57] VITALS: BP 176/69; PULSE 72; RESP 18; TEMP 36.7; O2SAT 96
--- NOTE | 2020-04-10 11:20 | ED_ITS ---
HPI - Nausea/Vomiting/Diarrhea General: Chief complaint: Nausea/Vomiting/Diarrhea Stated complaint: N/V Time Seen by Provider: 04/10/20 11:09 History of Present Illness: HPI Narrative: Patient is a 70-year-old female that comes to the ED with nausea, vomiting and diarrhea. Symptoms started approximately 12 hours ago. She was brought in by the EMS and states that they gave her some Zofran and currently she does not have any nausea while here in the ED. She denies any abdominal pain, fevers, chills, chest pain, shortness of breath, palpitations, dysuria or hematuria. MD elicited complaint: nausea, vomiting and diarrhea Onset (ago): hour(s) (started last night approximately 12 hours ago.) Description of vomiting: bilious Description of diarrhea: watery and lose (brown with no blood--patient reports having diarrhea about twice every hour since onset of symptoms.) Associated nausea: Yes Associated abdominal pain: No Relieving factors: none Context: possible food poisoning (Patient went out to eat last night and had some steak and shrimp. She did state that her son was with her and ate the same thing and he has not had any symptoms.) and recent antibiotic use (Patient says she is recently been taking ciprofloxacin and Flagyl. She started taking those last Sunday.) Associated symtoms: Reports nausea; Denies change in vision, chest pain, dysuria, fatigue, headache(s) or palpitations Treatment prior to arrival: fluids (Drinking water.) Review of Systems Const: Denies: fever(s), chills or fatigue Eyes: Denies: change in vision or eye discomfort ENMT: Denies: throat pain, odynophagia, nasal discharge or nasal congestion Card: Denies: chest pain, palpitations, edema, swelling of feet/ankles, dyspnea on exertion or orthopnea Resp: Denies: dyspnea, productive cough or non-productive cough GI: Reports: nausea, vomiting and diarrhea; Denies: abdominal pain, constipation or hematochezia : Denies: flank pain, dysuria or hematuria Musc: Denies: neck pain, back pain or extremity swelling Skin/Breast: Denies: rash or new lesions Neuro: Denies: headache(s), numbness in extremities or weakness in extremities PFS ED PFSH: Medical History Anxiety and depression Cervical spine pain Congestive heart failure Compensated Coronary artery disease DDD (degenerative disc disease), cervical Diabetes mellitus type 2 in obese Diabetic neuropathy DJD (degenerative joint disease), lumbar Encounter for long-term use of opiate analgesic Facet syndrome, lumbar History of kidney stones History of urinary retention Lumbar radiculitis Major depressive disorder, recurrent, moderate Primary insomnia Primary osteoarthritis of left knee Renal calculi Restless leg Surgical History H/O lithotripsy S/P carpal tunnel release BILATERAL S/P cervical spinal fusion 04/26/2017-2000 S/P knee replacement RIGHT S/P PTCA (percutaneous transluminal coronary angioplasty) S/P tonsillectomy Family History Son Diabetes Other Osteoporosis Social History Smoking and tobacco status: never smoked Second hand smoke exposure: Yes (20 years off and on) Alcohol intake: never Marital status: Current occupational status: retired History of recent travel: No Physical Exam Narrative: EXAM NARRATIVE: Patient is a 68-year-old female who is sitting comfortably on the exam bed when I enter the room. She is showing no signs of acute distress or pain. Const: COMMON NORMALS: no acute distress, patient oriented x3 and healthy appearing GENERAL APPEARANCE: cooperative and comfortable HENMT: COMMON NORMALS: normocephalic HEAD & SCALP: normocephalic MOUTH: Normal oral and palatal mucosa present THROAT: posterior oropharynx normal and uvula midline Neck/C-Spine: COMMON NORMALS: supple GENERAL: Yes normal visual inspection Resp: COMMON NORMALS: normal respiratory effort, No retractions, No use of accessory muscles and clear to auscultation bilaterally AUSCULTATION: clear to auscultation bilaterally Cardio: COMMON NORMALS: regular rate, regular rhythm, S1 normal heart sound present, S2 normal heart sound present, No gallops present (Cardio), No clicks present (Cardio), No murmurs present (Cardio) and Peripheral pulses 2+ throughout RATE: regular rate RHYTHM: regular rhythm HEART SOUNDS: S1 normal heart sound present and S2 normal heart sound present PERIPHERAL PULSES: Peripheral pulses 2+ throughout GI: COMMON NORMALS: Soft to palpation, non-tender and no masses INSPECTION: Yes normal to inspection, No abdominal distension and Yes central obesity AUSCULTATION: Yes Hyperactive bowel sounds present PALPATION: Yes Soft to palpation : COMMON NORMALS: Yes no CVA tenderness BLADDER/KIDNEY EXAM: Yes no CVA tenderness Back/Pelvis: COMMON NORMALS: no CVA tenderness Extremity: COMMON NORMALS: normal to inspection and no pedal edema Neuro: COMMON NORMALS: patient oriented x3 and moves all extremities Skin: COMMON NORMALS: no rashes or lesions noted GENERAL SKIN EXAM: no rashes or lesions noted and dry skin Course Reevaluation(s): Reevaluation #1: Patient has not had any episodes of nausea vomiting or diarrhea while on the unit. She feels like her symptoms have improved and she is ready to be discharged. Vital Signs: Vital signs: Vital Signs Temperature 98.5 F 04/10/20 15:42 Pulse Rate 65 04/10/20 15:42 Respiratory Rate 16 04/10/20 15:42 Blood Pressure 145/69 04/10/20 15:42 Pulse Oximetry 97 04/10/20 15:42 MDM - Nausea/Vomiting/Diarrhea MDM Narrative: Medical decision making narrative: Patient is a 70-year-old female that comes to the ED with nausea/vomiting/diarrhea. CBC, UA and CMP were unremarkable. CT of the abdomen was performed and showed no acute findings but some central mesenteric fat edema. Patient was given IV fluids and Zofran while here in the ED and her symptoms improved. She had no episodes of vomiting or diarrhea while here in the ED. Patient was discharged and told to follow-up with primary care doctor in 7 to 10 days for reevaluation. She can return to the ED if symptoms worsen. Patient understood and agreed with plan. Lab Data: Attestation: I reviewed the patient's lab results. Labs: Lab Results 04/10/20 04/10/20 04/10/20 Range/Units 12:00 12:00 13:00 WBC 9.2 (4.0-10.0) 10^3/ uL RBC 4.78 (4.1-5.3) 10^6/u L Hgb 13.6 (11.5-15.3) g/dL Hct 42.3 (37.0-47.0) % MCV 88.5 (81-99) fL MCH 28.5 (28.0-34.0) pg MCHC 32.2 (30.0-36.0) g/dL RDW 13.0 (12.1-15.1) % Plt Count 228 (130-400) 10^3/c mm MPV 10.1 (7.4-10.4) fL Neut % (Auto) 74.0 % Lymph % (Auto) 18.0 % Burleigh % (Auto) 5.8 % Eos % (Auto) 1.4 % Baso % (Auto) 0.5 % Neut # (Auto) 6.8 (1.8-7.7) 10^3/u L Lymph # (Auto) 1.7 (0.8-4.8) 10^3/u L Burleigh # (Auto) 0.5 (0.2-0.9) 10^3/u L Eos # (Auto) 0.1 (0.0-0.8) 10^3/u L Baso # (Auto) 0.1 (0.0-0.1) 10^3/u L Nucleated RBC % (a uto) 0 % Nucleated RBCs # 0.0 /100WBC Sodium 136 (136-145) mmol/L Potassium 4.1 (3.5-5.1) mmol/L Chloride 98 (98-107) mmol/L Carbon Dioxide 24 (22-29) mmol/L Anion Gap 18.1 (5-19) BUN 25 H (8-23) mg/dL Creatinine 1.0 H (0.5-0.9) mg/dL Glucose 180 H (65-115) mg/dL Calculated Osmolal ity 283 L (285-295) mOsm/k g Calcium 10.0 (8.5-10.5) mg/dL Total Bilirubin 0.5 (0.15-1.2) mg/dL AST 19 (0-32) U/L ALT 14 (0-33) U/L Alkaline Phosphata se 104 (35-105) IU/L Total Protein 6.9 (6.6-8.7) g/dL Albumin 4.0 (3.5-5.2) g/dL Globulin 2.9 (1.3-4.6) g/dL Lipase 66 H (13-60) U/L Urine Color Yellow (Yellow) Urine Appearance Clear (CLEAR) Urine pH 5 (5-7) Ur Specific Gravit y 1.015 (1.005-1.030) Urine Protein Neg (Negative) Urine Glucose (UA) Norm (Normal) Urine Ketones Negative (Negative) Urine Blood Neg (Negative) Urine Nitrate Negative (Negative) Urine Bilirubin Neg (NEGATIVE) Urine Urobilinogen Norm (Negative) mg/dL Ur Leukocyte Monie ase Trace H (Negative) Urine RBC None (0-2) /hpf Urine WBC 5-10 H (0-5) /hpf Ur Squamous Epith Cells 5-10 H (0-5) Urine Bacteria Trace (NONE) Urine Mucus Trace Imaging Data^: CT Abd/Pel: Attestation: I personally reviewed and interpreted this imaging study as follows: Radiologist's impression: [address] [address] [address] Scan Report Signed Patient: Eunice Frank Unit #: [id number] : 1950 Age/Sex: 70 / F ADM Date: 04/10/20 Loc: ER Room/Bed: Attending Dr: Ordering Provider/Ordering MD: Serjio Emery Date of Service: 04/10/20 Procedure(s): CT abdomen wo con [id number] Accession Number(s): [id number] Report Number: [id number] PROCEDURE INFORMATION: Exam: CT Abdomen Without Contrast Exam date and time: 04/10/2020 1:40 PM Age: 70 years old Clinical indication: Vomiting; Additional info: N/v/d TECHNIQUE: Imaging protocol: Computed tomography images of the abdomen without contrast. Radiation optimization: All CT scans at this facility use at least one of these dose optimization techniques: automated exposure control; mA and/or kV adjustment per patient size (includes targeted exams where dose is matched to clinical indication); or iterative reconstruction. COMPARISON: CT abdomen pelvis w con* [id number] 03/31/2020 1:05 PM RADIATION DOSE METRICS: Total DLP (mGy-cm): 1087.17 FINDINGS: Lungs: Left discoid atelectasis and/or scarring. Liver: Normal. No mass. Gallbladder and bile ducts: Normal. No calcified stones. No ductal dilation. Pancreas: Central mesenteric fat edema with extensive differential diagnosis including but not limited to pancreatitis, portal hypertension, infectious process, autoimmune/allergic process or neoplastic process. Spleen: Normal. No splenomegaly. Adrenals: Normal. No mass. Kidneys and ureters: Normal. No hydronephrosis. Stomach and bowel: Moderate sigmoid colon diverticulosis. Intraperitoneal space: Unremarkable. No free air. No significant fluid collection. Lymph nodes: Unremarkable. No enlarged lymph nodes. Vasculature: Calcification of the abdominal aorta and/or iliac arteries consistent with atherosclerotic vessel disease. Bones/joints: Unremarkable.No acute fracture. No dislocation. Soft tissues: Unremarkable. CT/CT abdomen wo con [id number] IMPRESSION: Central mesenteric fat edema with extensive differential diagnosis including but not limited to pancreatitis, portal hypertension, infectious process, autoimmune/allergic process or neoplastic process. Radiation Dose CTDIVOL = (mGy): DLP = 1087.17 (mGy-cm) Dictated By: Saul Ramirez MD Signed By: Saul Ramirez MD Signed Date/Time: 04/10/201413 DD/ 12 Discharge Plan Discharge Patient Disposition: Home, Self-Care Clinical Impression: Diarrhea Qualifiers: Diarrhea type: unspecified type Qualified Code(s): R19.7 - Diarrhea, unspecified Nausea and vomiting Qualifiers: Vomiting type: bilious vomiting Qualified Code(s): R11.14 - Bilious vomiting Condition: Stable Prescriptions: No Action B Complex Plus Vitamin C 48-62-00-5-300 mg capsule 1 cap PO DAILY RF: 0 ropinirole 0.5 mg tablet 0.5 mg PO BEDTIME RF: 0 metformin 850 mg tablet 850 mg PO BID RF: 0 valsartan 80 mg tablet 80 mg PO BID RF: 0 isosorbide mononitrate 30 mg tablet extended release 24 hr 30 mg PO QAM RF: 0 atorvastatin 10 mg tablet 10 mg PO BEDTIME RF: 0 Zyrtec 10 mg capsule 10 mg PO DAILY RF: 0 Lactobacillus acidophilus [Acidophilus] Capsule 10 mg PO QDAY RF: 0 aspirin [Adult Aspirin Regimen] 81 mg tablet,delayed release (DR/EC) 81 mg PO QDAY RF: 0 Hold Instructions: Resume on 04/08/20. lutein-zeaxanthin [Ocuvite Blue Light] 25-5 mg capsule 1 cap PO DAILY RF: 0 coenzyme H27-[id number] E 100-100 mg-unit capsule 1 cap PO DAILY RF: 0 duloxetine [Cymbalta] 60 mg capsule,delayed release(DR/EC) 60 mg PO DAILY Qty: 30 RF: 1 oxycodone 10 mg tablet 10 mg PO Q8H PRN (Reason: Pain) 30 Days Qty: 90 RF: 0 gabapentin 600 mg tablet 600 mg PO TID 30 Days Qty: 90 RF: 0 pantoprazole 40 mg Tablet,Delayed Release (Dr/Ec) 40 mg PO BID Qty: 60 RF: 0 amlodipine 5 mg tablet 5 mg PO BID Qty: 60 RF: 0 levothyroxine 112 mcg Tablet 112 mcg PO 0600 RF: 0 nortriptyline 50 mg capsule 50 mg PO BEDTIME RF: 0 atenolol 50 mg Tablet 75 mg PO DAILY Qty: 45 RF: 0 Cipro 500 mg tablet 500 mg PO BID 7 Days Qty: 14 RF: 0 Flagyl 500 mg tablet 500 mg PO Q8H 7 Days Qty: 21 RF: 0 Discharge Orders: Discharge Order (Routine); Ordered 04/10/20 Ordered By: Serjio Emery Referrals: Serjio Matute MD [Primary Care Provider] - Discharge Diet: Advance as tolerated Discharge Activity: Increase activity as tolerated Patient Instructions: Acute Nausea and Vomiting (ED), Acute Diarrhea (ED) Activity Restrictions/Additional Instructions: Follow-up with medical provider as directed in 5-7 days. You can take Tylenol for any fevers. Drink plenty of fluids and stay hydrated. Continue taking all home meds including finishing your prescription of antibiotics. Return to the ER or your medical provider if condition worsens. Please read and understand discharge instructions. If any questions, please ask. 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
[2020-04-10 12:09] LABS: Basophils # 0.1 10^3/uL (0.0-0.1); Basophils % 0.5 %; Eosinophils # 0.1 10^3/uL (0.0-0.8); Eosinophils % 1.4 %; Hematocrit 42.3 % (37.0-47.0); Hemoglobin 13.6 g/dL (11.5-15.3); Lymphocytes # 1.7 10^3/uL (0.8-4.8); Mean Corpuscular HGB Conc 32.2 g/dL (30.0-36.0); Mean Corpuscular Hemoglobin 28.5 pg (28.0-34.0); Mean Corpuscular Volume 88.5 fL (81-99); Mean Platelet Volume 10.1 fL (7.4-10.4); Monocytes # 0.5 10^3/uL (0.2-0.9); Monocytes % 5.8 %; Neutrophils # 6.8 10^3/uL (1.8-7.7); Nucleated Red Blood Cells % 0 %; Platelet Count 228 10^3/cmm (130-400); Red Blood Count 4.78 10^6/uL (4.1-5.3); White Blood Count 9.2 10^3/uL (4.0-10.0)
[2020-04-10 12:26] LABS: Alanine Aminotransferase 14 U/L (0-33); Alkaline Phosphatase 104 IU/L (35-105); Anion Gap 18.1 (5-19); Aspartate Amino Transferase 19 U/L (0-32); Blood Urea Nitrogen 25 mg/dL (8-23); Carbon Dioxide 24 mmol/L (22-29); Chloride 98 mmol/L (98-107); Globulin 2.9 g/dL (1.3-4.6); Glucose 180 mg/dL (65-115); Lipase 66 U/L (13-60); Osmolality Calculated 283 mOsm/kg (285-295); Potassium 4.1 mmol/L (3.5-5.1); Sodium 136 mmol/L (136-145); Total Bilirubin 0.5 mg/dL (0.15-1.2); Total Protein 6.9 g/dL (6.6-8.7)
--- NOTE | 2020-04-10 13:08 | CTR_ITS ---
PROCEDURE INFORMATION: Exam: CT Abdomen Without Contrast Exam date and time: 04/10/2020 1:40 PM Age: 70 years old Clinical indication: Vomiting; Additional info: N/v/d TECHNIQUE: Imaging protocol: Computed tomography images of the abdomen without contrast. Radiation optimization: All CT scans at this facility use at least one of these dose optimization techniques: automated exposure control; mA and/or kV adjustment per patient size (includes targeted exams where dose is matched to clinical indication); or iterative reconstruction. COMPARISON: CT abdomen pelvis w con* [id number] 03/31/2020 1:05 PM RADIATION DOSE METRICS: Total DLP (mGy-cm): 1087.17 FINDINGS: Lungs: Left discoid atelectasis and/or scarring. Liver: Normal. No mass. Gallbladder and bile ducts: Normal. No calcified stones. No ductal dilation. Pancreas: Central mesenteric fat edema with extensive differential diagnosis including but not limited to pancreatitis, portal hypertension, infectious process, autoimmune/allergic process or neoplastic process. Spleen: Normal. No splenomegaly. Adrenals: Normal. No mass. Kidneys and ureters: Normal. No hydronephrosis. Stomach and bowel: Moderate sigmoid colon diverticulosis. Intraperitoneal space: Unremarkable. No free air. No significant fluid collection. Lymph nodes: Unremarkable. No enlarged lymph nodes. Vasculature: Calcification of the abdominal aorta and/or iliac arteries consistent with atherosclerotic vessel disease. Bones/joints: Unremarkable.No acute fracture. No dislocation. Soft tissues: Unremarkable. CT/CT abdomen wo con [id number] IMPRESSION: Central mesenteric fat edema with extensive differential diagnosis including but not limited to pancreatitis, portal hypertension, infectious process, autoimmune/allergic process or neoplastic process. Radiation Dose CTDIVOL = (mGy): DLP = 1087.17 (mGy-cm)
[2020-04-10 13:48] LABS: Bilirubin Urine Neg (NEGATIVE); Blood Urine Neg (Negative); Glucose Urine UA Norm (Normal); Ketones Urine Negative (Negative); Leukocyte Esterase Urine Trace (Negative); Nitrate Urine Negative (Negative); Protein Urine Neg (Negative); Specific Gravity, Urine 1.015 (1.005-1.030); Urine Appearance Clear (CLEAR); Urine Color Yellow (Yellow); Urobilinogen Urine Norm (Negative); pH Urine 5 (5-7)
[2020-04-10 14:14] LABS: Bacteria Urine TRACE; Mucus Urine TRACE
[2020-04-10 14:15] LABS: Add Urine Culture? No
[2020-04-10] MEDS: ondansetron 2 mg/ML SDV 2 mL 4 MG IVP (15:07)
[2020-04-10 15:42] VITALS: BP 145/69; PULSE 65; RESP 16; TEMP 36.9; O2SAT 97
== END 2020-04-10 15:43 | disposition home or self-care (01) ==
PROVIDERS: Emergency Provider Physician Assistant; PCP Family Medicine
DX: R11.14 Bilious vomiting (principal); R19.7 Diarrhea, unspecified; Z79.82 Long term (current) use of aspirin; I11.0 Hypertensive heart disease with heart failure; I50.9 Heart failure, unspecified; I25.10 Atherosclerotic heart disease of native coronary artery without angina pectoris; E11.40 Type 2 diabetes mellitus with diabetic neuropathy, unspecified; Z77.22 Contact with and (suspected) exposure to environmental tobacco smoke (acute) (chronic)
CPT/HCPCS: 12345; 36415; 74150; 80053; 81001; 83690; 85025; 87040; 96361; 96374; 96375; 99283; J2405